=== PATIENT | male | born 1990 | race Caucasian/White ===

== ENCOUNTER 2016-11-23 13:24 | Emergency (ER) | payer OTHER ==
[~2016-11-23] VITALS: Ht 170.2 cm; Wt 74.8 kg
[~2016-11-23 13:24] MED LIST: ADDERALL XR 3030 MG PO; ADDERALL XR10 MG PO; ADDERALL XR20 MG PO; ADDERALL XR30 MG PO; ALBUTEROL 3 ML3 ML INH; ALBUTEROL SULFAT3 M1 INH; ALBUTEROL0.09 MG/A1 INH; ATIVAN0.5 M1 PO; ATIVAN1 M1 PO; AUGMENTIN 875875 MG PO; BIAXIN FILMTAB500 MG PO; COUGH100 MG/5 M PO; DULERA1 AR1 INH; DUONEB 3 MG/3 ML3 ML INH/SOL; EXCEDRIN BACK &1 TAB PO; HYDROXYZINE PAM50 MG PO; IBU800 MG PO; PREDNISONE 10MG10 M1 PO; PREDNISONE 20MG20 MG PO; PREDNISONE10 MG PO; PREDNISONE20 M1 PO; PROAIR HFA0.09 MG/Ac INH; PROAIR HFA8.5 GM INH; SINGULAIR10 MG PO; SYMBICORT 160/41 PUF INH; TESSALON PERLE100 M1 PO; VENTOLIN HFA18 GM INH; XANAX 0.25MG0.25 MG PO; XANAX 0.5MG TA0.5 MG PO; ZITHROMAX250 M2 PO
--- NOTE | 2016-11-23 14:20 | ED GENERAL ADULT ---
History of Present Illness General Chief Complaint: Wheezing/Asthma Stated Complaint: A?STHMA ATTACK Source: patient Exam Limitations: no limitations Vital Signs & Intake/Output Vital Signs & Intake/Output Vital Signs Date Time Temp Pulse Resp B/P Pulse O2 O2 Flow FiO2 Ox Delivery Rate 11/23 1456 99.0 80 20 118/64 96 Room Air 11/23 1449 98 11/23 1335 97.4 100 18 156/88 98 Room Air Allergies Coded Allergies: NO KNOWN ALLERGIES (03/05/13) Triage Note: 26 YEAR OLD MALE COMPLAINS OF SOB THAT HAS BEEN INCREASING SINCE YESTERDAY, WHEEZING NOTED. PT PALE , STATES THAT HE WAS ON PREDNISONE AND FINISHED 3 DAYS AGO. HAS HISTORY OF ASTHMA AND PNA. ALSO STATES THAT HE HAS ANXIETY AND THAT HIS PMD STOPPED TAKING HIS INSURANCE AND HE HAS NOT HAD ONE SINCE LAST PM Triage Nurses Notes Reviewed? yes Onset: Gradual Duration: worse persistent since (2) Timing: recent history Injury Environment: home Severity: moderate Severity Numbers: 6 No Modifying Factors: none HPI: Patient is a 26-year-old male with history of asthma, pneumonia, depression presenting to the emergency department chief complaining of shortness of breath worsening over the past 2 days. Also reporting wheezing. He was seen and evaluated at a walk-in clinic about a week ago and put on prednisone for the wheezing. He reports it helped but then it came back. He does have an albuterol inhaler that he takes as needed. He reports that this almost out. Denies any chest pain or palpitations. He also reports that he feels anxious. He reports that his primary care physician stopped taking his health insurance and he's been office psych medications for the past couple weeks. Denies any suicidal or homicidal ideation. No racing thoughts. He just reports that he feels anxious. He had some leftover Ativan which she's been using to hold himself over which helped slightly. Denies any nausea or vomiting fevers or chills no abdominal pain. No recent antibiotic use. (KHOA SHERMAN,APRIL) Reconcile Medications Albuterol Sulfate (Proair Hfa) 90 MCG HFA.AER.AD 2 PUF INH Q4-6 PRN PRN sob Dextroamphetamine/Amphetamine (Adderall XR 30 MG Capsule) 30 MG CAP.ER.24H 2 CAP PO DAILY ADHD (Reported) Dextroamphetamine/Amphetamine (Adderall 30 MG Tablet) 30 MG TABLET 1 TAB PO BID adhd Dextroamphetamine/Amphetamine (Adderall XR 30 MG Capsule) 30 MG CAP.ER.24H 1 CAP PO BID ADHD Fluticasone-Salmeterol (Advair 100-50 Diskus) 100 MCG-50 MCG/DOSE BLST.W.DEV 1 PUF INH BID asthma Lorazepam (Ativan) 0.5 MG TABLET 1 TAB PO BIDP PRN anxiety Paroxetine HCl (Paxil) 10 MG TABLET 1 TAB PO DAILY depression (JAVED BENJAMIN DO) Past History Travel History Traveled to [place] past 21 day No Medical History Any Pertinent Medical History? see below for history Neurological: ADHD EENT: NONE Cardiovascular: NONE Respiratory: asthma, pneumonia Gastrointestinal: NONE Hepatic: NONE Renal: NONE Musculoskeletal: NONE Psychiatric: anxiety Endocrine: NONE Blood Disorders: NONE Cancer(s): NONE PATIENT ADMITTING CLERK/Reproductive: NONE History of MRSA: No History of VRE: No History of CDIFF: No Surgical History Surgical History: N Psychosocial History Who do you live with Family Services at Home None What is your primary language Israeli Tobacco Use: Never used ETOH Use: denies use Illicit Drug Use: denies illicit drug use Family History Family History, If Any: FATHER Anxiety disorder FH: heart disease MOTHER FH: ADHD (attention deficit hyperactivity disorder) MATERNAL GRANDMOTHER Diabetes mellitus FH: asthma MATERNAL GRANDFATHER FH: hepatic cirrhosis PATERNAL GRANDFATHER FH: myocardial infarction Hx Contributory? No (APRIL JO) Review of Systems Review of Systems Constitutional: Reports: no symptoms. Comments Review of systems: See HPI, All other systems negative. Constitutional, no chills fever or weight loss HEENT: No visual changes no sore throat no congestion Cardiovascular: No chest pain ,palpitation , orthopnea or ankle swelling Skin, no jaundice no rashes Respiratory: No cough sputum or hemoptysis GI: No nausea no vomiting Muscle skeletal: no back pain, no neck pain, Neurologic: No numbness no confusion Psych: positive Stress, anxiety Heme/endocrine: No bruising no bleeding no polyuria or polydipsia Immunology: No splenectomy or history of AIDS (APRIL JO) Physical Exam Physical Exam General Appearance: well developed/nourished, no apparent distress, alert, awake , comfortable Comments: Well-developed well-nourished person in no acute distress HEENT: Pupils equally round and reactive to light and accommodation. Nose is atraumatic. External auditory canal and Tympanic membranes clear. Pharynx normal. No swelling or edema. Neck: Supple, no lymphadenopathy, normal range of motion without pain or tenderness Back: Nontender Cardiovascular: Regular rate and rhythms no murmurs rubs or gallops, normal JVP Respiratory: Chest nontender. No respiratory distress.diffuse wheezing to auscultation bilaterally Extremity: No edema. Neuro: Alert oriented x3 Skin: No appreciable rash on exposed skin, skin is warm and dry. Psych: Appears mildly anxious, cooperative Core Measures ACS in differential dx? No CVA/TIA Diagnosis: No Severe Sepsis Present: No Septic Shock Present: No (KHOA SHERMAN,APRIL) Progress Differential Diagnoses I considered the following diagnoses in my evaluation of the patient: COPD, asthma exacerbation, bronchitis, pneumonia Plan of Care: Orders Procedure Date/time Status XRY-CHEST XRAY, PA AND LATERAL 11/23 1335 Active Current Medications Sig/Shelia Start time Last Medication Dose Stop Time Status Admin Albuterol Sulfate 3 ML ONCE ONE 11/23 1445 AC (Proventil) 11/23 1446 Ipratropium [place] 2.5 ML ONCE ONE 11/23 1445 AC (Atrovent) 11/23 1446 Diagnostic Imaging: Viewed by Me: Radiology Read. Discussed w/RAD: Radiology Read. Radiology Impression: PATIENT: MANOLO ADORNO JR PRESENT AGE: 26 PATIENT ACCOUNT NO: [id number] : 90 LOCATION: [facility] ORDERING PHYSICIAN: JAVED BENJAMIN DO SERVICE DATE: 11/23/16 EXAM TYPE: RAD - XRY-CHEST XRAY, PA AND LATERAL EXAMINATION: XR CHEST CLINICAL INFORMATION: 26-year-old man with shortness of breath. COMPARISON: 01/28/2016 chest radiograph TECHNIQUE: 2 views of the chest were obtained. FINDINGS: The lungs are well expanded and clear, without evidence of focal airspace consolidation or pneumothorax. Cardiomediastinal contours are normal. There are no pleural effusions. IMPRESSION: No radiographic evidence of an acute cardiopulmonary process. Initial ED EKG: none Comments: Patient feels much improved after DuoNeb treatment. Lungs only have minimal wheezing after DuoNeb treatment. Patient will be treated for asthma exacerbation. He was given refill medications to last until his follow-up appointment. Patient nontoxic. Vital stable. (APRIL JO) Departure Departure Time of Disposition: 1450 Disposition: HOME OR SELF CARE Condition: Stable Clinical Impression Primary Impression: Asthma exacerbation Secondary Impressions: Anxiety Referrals: PATIENT HAS NO PRIMARY CARE DR (PCP/Family) Additional Instructions: Follow-up with a primary care physician as scheduled for December 07. Take medications as prescribed. Return for worsening symptoms or concerns. Departure Forms: Customer Survey General Discharge Information (APRIL JO) Departure Prescriptions: Current Visit Scripts Albuterol Sulfate (Proair Hfa) 2 PUF INH Q4-6 PRN PRN sob #1 INHAL Fluticasone-Salmeterol (Advair 100-50 Diskus) 1 PUF INH BID #1 INHAL Dextroamphetamine/Amphetamine (Adderall 30 MG Tablet) 1 TAB PO BID #30 TAB Lorazepam (Ativan) 1 TAB PO BIDP PRN anxiety #12 TAB Paroxetine HCl (Paxil) 1 TAB PO DAILY #15 TAB Dextroamphetamine/Amphetamine (Adderall XR 30 MG Capsule) 1 CAP PO BID #30 CAP PA/TAR WORKER Co-Sign Statement Statement: ED Attending supervision documentation- [] I saw and evaluated the patient. I have also reviewed all the pertinent lab results and diagnostic results. I agree with the findings and the plan of care as documented in the PA's/TAR WORKER's documentation. [x] I have reviewed the ED Record and agree with the PA's/TAR WORKER's documentation. [] Additions or exceptions (if any) to the PAs/TAR WORKER's note and plan are summarized below: [] (JAVED BENJAMIN DO) Critical Care Note Critical Care Note Critical Care Time: non-applicable (APRIL JO)
--- NOTE | 2016-11-23 14:49 | RADIOLOGY REPORT ---
EXAMINATION: XR CHEST CLINICAL INFORMATION: 26-year-old man with shortness of breath. COMPARISON: 01/28/2016 chest radiograph TECHNIQUE: 2 views of the chest were obtained. FINDINGS: The lungs are well expanded and clear, without evidence of focal airspace consolidation or pneumothorax. Cardiomediastinal contours are normal. There are no pleural effusions. IMPRESSION: No radiographic evidence of an acute cardiopulmonary process.
[2016-11-23] MEDS ORDERED: ATIVAN0.5 M1 PO (14:55)
[2016-11-23] MEDS ORDERED: PROAIR HFA8.5 GM INH (14:55)
[2016-11-23] MEDS ORDERED: PAXIL10 M1 PO (14:55)
[2016-11-23] MEDS ORDERED: ADVAIR 100-501 EACH INH (14:55)
[2016-11-23] MEDS ORDERED: ADDERALL 30 MG30 MG PO (14:55)
[2016-11-23 14:56] VITALS: BP 118/64
[2016-11-23] MEDS ORDERED: ADDERALL XR 3030 MG PO (16:00)
== END 2016-11-23 15:16 ==
LOC: ERH 13:24
DX: J45.901 Unspecified asthma with (acute) exacerbation (principal); F41.9 Anxiety disorder, unspecified
CPT/HCPCS: 1263

== ENCOUNTER 2017-01-14 10:39 | Emergency (ER) | payer OTHER ==
[~2017-01-14 10:39] MED LIST changes: +ADDERALL 30 MG30 MG PO; +ADVAIR 100-501 EACH INH; +PAXIL10 M1 PO
[2017-01-14 11:10] VITALS: BP 147/74
--- NOTE | 2017-01-14 11:12 | ED PSYCHIATRIC COMPLAINT ---
History of Present Illness General Chief Complaint: General Adult Stated Complaint: MEDICATION REFILL Source: patient, old records Exam Limitations: no limitations Vital Signs & Intake/Output Vital Signs & Intake/Output Vital Signs Date Time Temp Pulse Resp B/P Pulse O2 O2 Flow FiO2 Ox Delivery Rate 01/14 1113 95 01/14 1110 97.2 103 18 147/74 96 Room Air Allergies Coded Allergies: NO KNOWN ALLERGIES (03/05/13) Reconcile Medications Albuterol Sulfate (Proair Hfa) 90 MCG HFA.AER.AD 2 PUF INH Q4-6 PRN PRN sob Dextroamphetamine/Amphetamine (Adderall XR 30 MG Capsule) 30 MG CAP.ER.24H 2 CAP PO DAILY ADHD (Reported) Dextroamphetamine/Amphetamine (Adderall XR 30 MG Capsule) 30 MG CAP.ER.24H 2 CAP PO QAM adhd Dextroamphetamine/Amphetamine (Adderall 30 MG Tablet) 30 MG TABLET 1 TAB PO BID adhd Dextroamphetamine/Amphetamine (Adderall XR 30 MG Capsule) 30 MG CAP.ER.24H 1 CAP PO BID ADHD Fluticasone-Salmeterol (Advair 100-50 Diskus) 100 MCG-50 MCG/DOSE BLST.W.DEV 1 PUF INH BID asthma Lorazepam (Ativan) 0.5 MG TABLET 1 TAB PO BIDP PRN anxiety Lorazepam (Ativan) 0.5 MG TABLET 1 TAB PO BIDP PRN anxiety Paroxetine HCl (Paxil) 10 MG TABLET 1 TAB PO DAILY anxiety Paroxetine HCl (Paxil) 10 MG TABLET 1 TAB PO DAILY depression Triage Note: STATES, "I CAN'T FUNCTION". RAN OUT OF ADARAL. PAXIL AND ATIVAN 1 MONTH AGO. DENIES SI OR HI. Triage Nurses Notes Reviewed? yes Onset: Gradual Duration: week(s): (4), constant, getting worse Timing: recent history Severity: moderate Severity Numbers: 6 Associated Symptoms: anxiety HPI: 26-year-old male with history of ADHD, anxiety presents for medication refill. He states that he medications approximately 4 weeks ago, and cannot follow up with his psychiatrist that she does not take his insurance any longer. He presents requesting refill of his Paxil Adderall and Ativan. Patient denies suicidal or homicidal ideation, no insomnia ever he complains of racing thoughts and difficulty concentrating. There are no modifying factors or associated symptoms. Discussed the patient options of speaking with crisis which she declined stating that he feels as though he just needs his medications help him function. He denies alcohol or drug use (REID BERNAL) Past History Travel History Traveled to [place] past 21 day No Medical History Any Pertinent Medical History? see below for history Neurological: ADHD EENT: NONE Cardiovascular: NONE Respiratory: asthma, pneumonia Gastrointestinal: NONE Hepatic: NONE Renal: NONE Musculoskeletal: NONE Psychiatric: anxiety, ADHD Endocrine: NONE Blood Disorders: NONE Cancer(s): NONE IMPLEMENTATION MANAGER/Reproductive: NONE History of MRSA: No History of VRE: No History of CDIFF: No Surgical History Surgical History: N Psychosocial History Who do you live with Family Services at Home None What is your primary language Setswana Tobacco Use: Current Daily Use Daily Tobacco Use Amount/Type: => 5 Cigarettes daily ETOH Use: denies use Family History Family History, If Any: FATHER Anxiety disorder FH: heart disease MOTHER FH: ADHD (attention deficit hyperactivity disorder) MATERNAL GRANDMOTHER Diabetes mellitus FH: asthma MATERNAL GRANDFATHER FH: hepatic cirrhosis PATERNAL GRANDFATHER FH: myocardial infarction Hx Contributory? No (REID BERNAL) Review of Systems Review of Systems Constitutional: Reports: see HPI. All Other Systems: Reviewed and Negative Comments Review of systems: See HPI, All other systems negative. Constitutional, no chills no fever, no malaise HEENT: no sore throat no congestion, no ear pain Cardiovascular: No chest pain , no palpitation Skin, no rashes, no change in skin Respiratory: No dyspnea no cough GI: No nausea no vomiting, no diarrhea, : No dysuria Muscle skeletal: no back pain, no neck pain, Neurologic: No numbness no headache Psych: stress anxiety Heme/endocrine: No bruising no bleeding Immunology: No lymphadenopathy (REID BERNAL) Physical Exam Physical Exam General Appearance: well developed/nourished, no apparent distress, alert, awake Neurological/Psychiatric: no motor/sensory deficits, awake, alert, anxious, flat hammerer II-XII nml as tested SAD PERSONS Done? patient not suicidal (REID BERNAL) Progress Differential Diagnosis: anxiety depression medication refill Plan of Care: ct manager functional reviewed, last prescriptons filled were early nov 2016. The patient denies SI or HI discussed with the option of talking with crisis today which she declines. I had an extensive conversation regarding need for close follow up with their primary care physician this week as well as return precautions. I answered all of their questions, they feel comfortable with the plan and follow- up care. I discussed the medications that they will receive with the patient. I gave them signs and symptoms that could indicate an adverse reaction. I have advised them to limit their activities until they can see how they respond to the medication. (REID BERNAL) Departure Departure Time of Disposition: 1115 Disposition: HOME OR SELF CARE Condition: Stable Clinical Impression Primary Impression: Medication refill Referrals: SOFIE PIERCE,KATE TORREZ MD,EMIGDIO Flores PATIENT HAS NO PRIMARY CARE DR (PCP/Family) KIRSTEN PIERCE,HEAVEN Additional Instructions: take your medications as prescribed- these were sent to [facility] in [place]. follow up with primary care physician dr amaro next week as well as pyschiatrist dr brown or dr torrez. return at anytime sooner with any concerns Departure Forms: Customer Survey General Discharge Information Prescriptions: Current Visit Scripts Dextroamphetamine/Amphetamine (Adderall XR 30 MG Capsule) 2 CAP PO QAM #30 CAP Paroxetine HCl (Paxil) 1 TAB PO DAILY #30 TAB Lorazepam (Ativan) 1 TAB PO BIDP PRN anxiety #10 TAB (REID BERNAL) PA/VEST FINISHER Co-Sign Statement Statement: ED Attending supervision documentation- [] I saw and evaluated the patient. I have also reviewed all the pertinent lab results and diagnostic results. I agree with the findings and the plan of care as documented in the PA's/VEST FINISHER's documentation. [X] I have reviewed the ED Record and agree with the PA's/VEST FINISHER's documentation. [] Additions or exceptions (if any) to the PAs/VEST FINISHER's note and plan are summarized below: [] (CORNELIUS PIERCE,JENNIFER Wise)
[2017-01-14] MEDS ORDERED: ADDERALL XR 3030 MG PO (11:19)
[2017-01-14] MEDS ORDERED: PAXIL10 M1 PO (11:19)
[2017-01-14] MEDS ORDERED: ATIVAN0.5 M1 PO (11:19)
== END 2017-01-14 11:26 ==
LOC: ERH 10:39
DX: Z76.0 Encounter for issue of repeat prescription (principal)
CPT/HCPCS: 99281

== ENCOUNTER 2017-01-23 19:16 | Inpatient (IN) | payer OTHER ==
[~2017-01-23] VITALS: Ht 167.6 cm; Wt 77.1 kg
--- NOTE | 2017-01-23 20:15 | ED PSYCHIATRIC COMPLAINT ---
History of Present Illness General Chief Complaint: Psychiatric Related Complaint Stated Complaint: "I FEEL LIKE IM HAVING A NERVOUS BREAKDOWN" Source: patient, old records Exam Limitations: no limitations Vital Signs & Intake/Output Vital Signs & Intake/Output Vital Signs Date Time Temp Pulse Resp B/P Pulse O2 O2 Flow FiO2 Ox Delivery Rate 01/24 1036 96 01/24 1017 97.2 97 20 147/68 97 Room Air Room Air 01/24 0814 97.9 97 18 141/82 97 Room Air 01/24 0621 96.0 71 18 135/62 95 Room Air 01/24 0240 96.8 67 20 141/73 98 Room Air 01/23 2349 96.6 74 18 135/85 96 Room Air 01/23 1942 97.5 93 20 165/89 98 ED Intake and Output 01/24 0000 01/23 1200 Intake Total Output Total Balance Patient 170 lb Weight Allergies Coded Allergies: NO KNOWN ALLERGIES (03/05/13) Reconcile Medications Albuterol Sulfate (Proair Hfa) 90 MCG HFA.AER.AD 2 PUF INH Q4-6 PRN PRN sob Dextroamphetamine/Amphetamine (Adderall XR 30 MG Capsule) 30 MG CAP.ER.24H 2 CAP PO DAILY ADHD (Reported) Dextroamphetamine/Amphetamine (Adderall XR 30 MG Capsule) 30 MG CAP.ER.24H 2 CAP PO QAM adhd Dextroamphetamine/Amphetamine (Adderall 30 MG Tablet) 30 MG TABLET 1 TAB PO BID adhd Dextroamphetamine/Amphetamine (Adderall XR 30 MG Capsule) 30 MG CAP.ER.24H 1 CAP PO BID ADHD Fluticasone-Salmeterol (Advair 100-50 Diskus) 100 MCG-50 MCG/DOSE BLST.W.DEV 1 PUF INH BID asthma Lorazepam (Ativan) 0.5 MG TABLET 1 TAB PO BIDP PRN anxiety Lorazepam (Ativan) 0.5 MG TABLET 1 TAB PO BIDP PRN anxiety Paroxetine HCl (Paxil) 10 MG TABLET 1 TAB PO DAILY anxiety Paroxetine HCl (Paxil) 10 MG TABLET 1 TAB PO DAILY depression Triage Note: PER PT SEEN 2 WEEKS AGO FOR REFILLS ON ADDERALL, XANAX ASKED IF I WANTED TO TALK TO SOMEONE. DENIES SIHI NOW I WANT TO SEE A PSYCHAIRTRIST, FEEL REALLY DOWN. Triage Nurses Notes Reviewed? yes HPI: Patient presents with increased anxiety and feeling of hopelessness. Patient states that he is not suicidal however does not want to be alive anymore. Patient has 1 week left of his medications and then will run out. He has been unable to find a psychiatrist yet. Patient did have his meds refilled in the ER last time. Patient also heard from his employer today and that he might be going to [facility]. Patient denies any homicidal ideations. Patient states that he is just at the end of his rope and does not know when he is going to do. (CORNELIUS PIERCE,JENNIFER Wise) Past History Travel History Traveled to [place] past 21 day No Medical History Any Pertinent Medical History? see below for history Neurological: ADHD EENT: NONE Cardiovascular: NONE Respiratory: asthma, pneumonia Gastrointestinal: NONE Hepatic: NONE Renal: NONE Musculoskeletal: NONE Psychiatric: anxiety, ADHD Endocrine: NONE Blood Disorders: NONE Cancer(s): NONE MACHINE LOAD CLERK/Reproductive: NONE History of MRSA: No History of VRE: No History of CDIFF: No Surgical History Surgical History: non-contributory, N Psychosocial History Who do you live with Family Services at Home None What is your primary language Sinhala Tobacco Use: Current Daily Use Daily Tobacco Use Amount/Type: => 5 Cigarettes daily ETOH Use: occasional use Illicit Drug Use: denies illicit drug use Family History Family History, If Any: FATHER Anxiety disorder FH: heart disease MOTHER FH: ADHD (attention deficit hyperactivity disorder) MATERNAL GRANDMOTHER Diabetes mellitus FH: asthma MATERNAL GRANDFATHER FH: hepatic cirrhosis PATERNAL GRANDFATHER FH: myocardial infarction Hx Contributory? No (CORNELIUS PIERCE,JENNIFER Wise) Review of Systems Review of Systems Constitutional: Reports: no symptoms. EENTM: Reports: no symptoms. Respiratory: Reports: no symptoms. Cardiovascular: Reports: no symptoms. GI: Reports: no symptoms. Genitourinary: Reports: no symptoms. Musculoskeletal: Reports: no symptoms. Skin: Reports: no symptoms. Neurological/Psychological: Reports: see HPI, anxiety, depressed. Hematologic/Endocrine: Reports: no symptoms. Immunologic/Allergic: Reports: no symptoms. All Other Systems: Reviewed and Negative (CORNELIUS PIERCE,JENNIFER Wise) Physical Exam Physical Exam General Appearance: well developed/nourished, alert, awake, anxious, moderate distress Head: atraumatic, normal appearance Eyes: Bilateral: PERRL, EOMI. Ears, Nose, Throat: normal pharynx, normal ENT inspection, hearing grossly normal Neck: normal inspection, supple, full range of motion Respiratory: normal breath sounds, chest non-tender, no respiratory distress, lungs clear Cardiovascular: regular rate/rhythm, normal peripheral pulses Gastrointestinal: normal bowel sounds, soft, non-tender, no organomegaly Extremities: normal range of motion Neurological/Psychiatric: no motor/sensory deficits, awake, alert, anxious, oriented x 3 Appearance/Memory/Insight: appropriate appearance, appropriate insight Behavoir/Eye Contact/Speech: cooperative, normal speech, good eye contact Thoughts/Hallucinations: normal thought pattern, no apparent hallucination Skin: intact, normal color, warm/dry SAD PERSONS Done? CRISIS CONSULT OBTAINED (CORNELIUS PIERCE,JENNIFER Wise) Progress Differential Diagnosis: drug intoxication, drug overdose, drug withdrawal, electrolyte abnormality Plan of Care: Orders Procedure Date/time Status Regular Diet 01/24 L Active Regular Diet 01/24 B Complete Lab Add-on Test 01/24 1052 Active Patient Data - inpatient psych 01/24 921 Active Admit to inpatient psych 01/24 921 Active Admit to inpatient psych 01/24 0841 Active Intake & Output 01/24 0117 Active Vital Signs 01/24 UNK Active Nursing Misc 01/24 UNK Active Alternative Nursing Therapy 01/24 UNK Active Activity/Ambulation 01/24 UNK Active TSH REFLEX 01/23 214 Active ETHANOL 01/23 2050 Active COMPREHENSIVE METABOLIC PANEL 01/23 2050 Active CBC WITHOUT DIFFERENTIAL 01/23 2050 Complete URINE DRUGS OF ABUSE 01/23 2015 Complete ED CRISIS PSYCH CONSULT 01/23 2015 Active Current Medications Sig/Shelia Start time Last Medication Dose Stop Time Status Admin Bupropion HCl 300 MG DAILY 01/24 1055 AC (Wellbutrin XL) Paroxetine HCl 10 MG DAILY 01/24 1055 AC (Paxil) Budesonide/ 2 PUF BID 01/24 1053 AC Formoterol Fumarate (SYMBICORT) Acetaminophen 650 MG Q6P PRN 01/24 0930 AC (Tylenol) Al Hydroxide/Mg 30 ML Q4-6 PRN PRN 01/24 09 AC Hydroxide (Maalox Plus) Gabapentin 300 MG Q6P PRN 01/24 0930 AC (Neurontin) Magnesium Hydroxide 30 ML AT BEDTIME NEED.. 01/24 09 AC (Milk Of Magnesia) Trazodone HCl 50 MG AT BEDTIME PRN 01/24 0930 AC (Desyrel) Laboratory Tests 01/23/179: Anion Gap 12, Estimated GFR > 60, BUN/Creatinine Ratio 12.2, Glucose 88, Calcium 9.8, Total Bilirubin 0.6, AST 20, ALT 59, Alkaline Phosphatase 45, Total Protein 6.7, Albumin 4.2, Globulin 2.5, Albumin/Globulin Ratio 1.7, TSH &T3 &Free T4 Intrp Pending, CBC w Diff NO MAN DIFF REQ, RBC 4.94, MCV 85.1, MCH 29.0, RDW 13.4, MPV 8.1, Gran % 57.7, Lymphocytes % 33.6, Monocytes % 5.3, Eosinophils % 2.7, Basophils % 0.7, Absolute Granulocytes 4.9, Absolute Lymphocytes 2.9, Absolute Monocytes 0.4, Absolute Eosinophils 0.2, Absolute Basophils 0.1, PUBS MCHC 34.1, Serum Alcohol < 10.0 01/23/177: Urine Opiates Screen < 100.00, Methadone Screen < 40, Barbiturate Screen < 60, Ur Phencyclidine Scrn < 6.00, Amphetamines Screen > 1450 H, U Benzodiazepines Scrn < 85, Urine Cocaine Screen < 50, Urine Cannabis Screen < 5.00 Hand-Off Endorsed To: MOUSTAPHA GAMBOA MD Endorsed Time: 0700 Pending: consult (CRISIS) (CORNELIUS PIERCE,JENNIFER Wise) Comments: To be hospitalized @ [facility] for management of major depression (MOUSTAPHA GAMBOA MD) Departure Departure Disposition: STILL A PATIENT Condition: Stable Clinical Impression Primary Impression: Depression Referrals: PATIENT HAS NO PRIMARY CARE DR (PCP/Family) Departure Forms: Customer Survey General Discharge Information (JENNIFER SHIELDS MD) Psych Admission Note Psychiatric Admission: I have seen and evaluated MANOLO ADORNO JR. I have also reviewed all the pertinent lab results and diagnostic results. MANOLO ADORNO JR will be admitted to our inpatient Psychiatric unit for treatment and care. (MOUSTAPHA GAMBOA MD)
--- NOTE | 2017-01-23 21:47 | ED PSY CRISIS COLLATERAL NOTE ---
Collateral Note Collateral Note Family/Inform/Janine Contacts: Spoke to patient's mother, Diana Yang . Diana states "I am concerned that Peter is not doing good. He has so many things going on." Diana states the patient has a history of heroin abuse. She reports the patient has been dealing with anxiety since he was a child. She states that the patient was discharged from [facility] for missing an appointment and stopped taking his medication in August,. In October,, she reports he decompensated, relapsed and was arrested. She reports he was charged with "serious charges" including robbery and that he is very fearful of the possible outcome being correction. She reports the patient has been anxious, depressed and helpless since the arrest and "always full of doom and gloom." However, she reports the patient has been improving recently since he started taking medication again. She reports the patient intended to make an appointment with [facility] for an intake. She reports the patient is currently residing [facility] ([facility]) in [place], [place] pending the disposition of his case. She reports she took the patient on a pass from [facility] today to see his family law attorney. She reports she became concerned for the patient after the meeting with the director of engineering. She reports that the patient became despondent and stated "I do not want to be here. I would be better off ." She reports she brought him to the [facility] ED because she was concerned for his safety and well being. This note prepared by Leticia Roberts, RAKE OPERATOR Binder Roller, and signed off by Lilia Olivas LCSW
[2017-01-23 22:05] LABS: ABSOLUTE BASOPHIL COUNT 0.1 /CUMM (0.0-0.2); ABSOLUTE EOSINOPHIL COUNT 0.2 /CUMM (0.0-0.7); ABSOLUTE GRANULOCYTE CT 4.9 /CUMM (1.4-6.5); ABSOLUTE LYMPH COUNT 2.9 /CUMM (1.2-3.4); ABSOLUTE MONOCYTE COUNT 0.4 /CUMM (0.10-0.60); BASOPHIL % 0.7 % (0.0-2.0); EOSINOPHIL % 2.7 % (0-5); GRANULOCYTE % 57.7 % (42.2-75.2); HEMATOCRIT 42.1 % (42-52); MEAN CORPUSCULAR HGB CONC 34.1 G/DL (33.0-37.0); MEAN CORPUSCULAR VOLUME 85.1 FL (80.0-94.0); MEAN PLATELET VOLUME 8.1 FL (7.4-10.4); PLATELET COUNT 262 /CUMM (130-400); RBC DISTRIBUTION WIDTH 13.4 % (11.5-14.5); RED BLOOD CELL CT 4.94 /CUMM (4.70-6.10); WHITE BLOOD CELL COUNT 8.5 /CUMM (4.8-10.8)
--- NOTE | 2017-01-24 08:09 | ED PSYCH CRISIS CONSULTATION ---
Crisis Consult Basic Assessment Date of Consult: 01/24/17 Responsible Person/Accompanied By: Mom brought pt to the ED Insurance Authorization: Insurance #1: Insurance name: [employer] Phone number: Policy number: [id number] Group number: Authorization number: ED Provider: Patient's ED Provider: CORNELIUS PIERCE,JENNIFER Wise Primary Care Physician: Patient's PCP: PATIENT HAS NO PRIMARY CARE DR PCP's Phone Number: Current Psychiatrist: none Chief Complaint: Psychiatric Related Complaint Patient's Quote: "I just wish I was ." Present Illness: Pt is a 26yo male who was brought to the ED by his mother Harper Yang due to concern that he may hurt himself due to the severity of his depression. Crisis spoke to Mom last night who expressed the following: "Spoke to patient's mother, Diana Yang . Diana states "I am concerned that Peter is not doing good. He has so many things going on." Diana states the patient has a history of heroin abuse. She reports the patient has been dealing with anxiety since he was a child. She states that the patient was discharged from [facility] for missing an appointment and stopped taking his medication in August,. In October,, she reports he decompensated, relapsed and was arrested. She reports he was charged with "serious charges" including robbery and that he is very fearful of the possible outcome being senior care. She reports the patient has been anxious, depressed and helpless since the arrest and "always full of doom and gloom." However, she reports the patient has been improving recently since he started taking medication again. She reports the patient intended to make an appointment with [facility] for an intake. She reports the patient is currently residing at the [facility] ([facility]) in [place], [place] pending the disposition of his case. She reports she took the patient on a pass from [facility] today to see his patent attorney. She reports she became concerned for the patient after the meeting with the vet assistant. She reports that the patient became despondent and stated "I do not want to be here. I would be better off ." She reports she brought him to the [facility] ED because she was concerned for his safety and well being.(This note prepared by Leticia Roberts, IT SECURITY SPECIALIST Delivery Table Operator, and signed off by Lilia Olivas LCSW 01/23/17)" Upon crisis eval pt confirms the above and continues to express feeling of hopelessness and helplessness and a wish to be . Pt denies any plan to end his life. Pt appears depressed and anxious. Pt reports that in addition to the above mentioned stressors he has also been depressed because over the past year 2 close friend of his have dies and his girlfriend of 10 years broke up with him. 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 Pt is unsure when his exact court carlene is but thinks it is around February 09. Pt reports that he has been having racing thoughts, poor impulse control and feeling anxious and depressed. He reports normal sleep and appetite, but identifies that he has been having poor motivation with difficulty getting out of bed to do anything. Pt endorses current passive SI but denies any current HI/SH or psychosis or any hx of any. Pt denies any hx of inpt tx. Pt reports that he was in out pt tx with Dr. Larson but for Anxiety, Depression , and ADHD and was prescribed Adderall, Paxil , and ativan. Pt explains that he missed some appointments, so he was discharged, and when he tried to return, he looked her up on her web page and saw that she no longer accepts [employer]. Pt reports that he has been trying to get a psychiatrist since then, but has not been able too. He explains that when he goes off his adderall he get too impulsive and that since he has not been in treatment he "ended up hanging out with the wrong people and got arrested because I was too impulsive off my adderall." Pt denies abusing his adderall and denies using any other substances or alcohol. Pt was seen in ED on 12/17/16 and was discharged with the following scripts: Dextroamphetamine/Amphetamine (Adderall XR 30 MG Capsule) 2 CAP PO QAM #30 CAP, Paroxetine HCl (Paxil) 1 TAB PO DAILY #30 TAB, Lorazepam ( Ativan) 1 TAB PO BIDP PRN anxiety #10 TAB . The ED provider documented that he reviewed pt's CLOTHING AND TEXTILES TEACHER and that he had scripts filled in early Nov. This clinician contacted Dr. Larson who informed that pt was discharged because he stopped coming for tx and she confirmed that she was prescribing him Adderall for ADHD and Paxil for anxiety. She reports that she last saw him about 6 months ago. This clinician also spoke with Garland katherine at pt's current residence [facility] who reported that pt has 10 adderall pills left in his bottle. Pt would like to be admitted to [facility] to treat his depression and passive SI. It was explained to pt that he will be evaluated for medication and recommendations will be made and there is no guarantee that the adderall will be continued. Pt confirmed an understanding of this but continues to express that importance of how much his functioning improves when he takes adderall. Case reviewed with Dr. De La Vega of Psychiatry and pt will be admitted to [facility] voluntarily. Pt in agreement and requested that his anti air warfare operations officer be notified. This clinician spoke to Pt's anti air warfare operations officer Abelino Roman to inform him of pt's admission and also faxed him a written confirmation (see original in paper chart). Patient's Address: [address] [place] [address] Other Phone Number: Who Do You Live With? Other (see notes) ([facility]) Family/Informants Interviewed: Mother Allergies - Coded Allergies: NO KNOWN ALLERGIES (03/05/13) Current Medications - Scheduled Medications Dextroamphetamine/Amphetamine (Adderall XR 30 MG Capsule) 30 MG CAP.ER.24H 2 CAP PO DAILY ADHD (Reported) Entered as Reported by KIRTI PARRISH on 01/28/16 1347 Dextroamphetamine/Amphetamine (Adderall XR 30 MG Capsule) 30 MG CAP.ER.24H 2 CAP PO QAM adhd #30 CAP Prescribed by REID BERNAL on 01/14/17 Dextroamphetamine/Amphetamine (Adderall 30 MG Tablet) 30 MG TABLET 1 TAB PO BID adhd #30 TAB Prescribed by APRIL JO on 11/23/16 Dextroamphetamine/Amphetamine (Adderall XR 30 MG Capsule) 30 MG CAP.ER.24H 1 CAP PO BID ADHD #30 CAP Prescribed by APRIL JO on 11/23/16 Fluticasone-Salmeterol (Advair 100-50 Diskus) 100 MCG-50 MCG/DOSE BLST.W.DEV 1 PUF INH BID asthma #1 INHAL Prescribed by APRIL JO on 11/23/16 Paroxetine HCl (Paxil) 10 MG TABLET 1 TAB PO DAILY anxiety #30 TAB Prescribed by REID BERNAL on 01/14/17 Paroxetine HCl (Paxil) 10 MG TABLET 1 TAB PO DAILY depression #15 TAB Prescribed by APRIL JO on 11/23/16 Scheduled PRN Medications Albuterol Sulfate (Proair Hfa) 90 MCG HFA.AER.AD 2 PUF INH Q4-6 PRN PRN sob #1 INHAL Prescribed by APRIL JO on 11/23/16 Lorazepam (Ativan) 0.5 MG TABLET 1 TAB PO BIDP PRN anxiety #10 TAB Prescribed by REID BERNAL on 01/14/17 Lorazepam (Ativan) 0.5 MG TABLET 1 TAB PO BIDP PRN anxiety #12 TAB Prescribed by APRIL JO on 11/23/16 Laboratory Results: Laboratory Tests 01/23/172148: Anion Gap 12, Estimated GFR > 60, BUN/Creatinine Ratio 12.2, Glucose 88, Calcium 9.8, Total Bilirubin 0.6, AST 20, ALT 59, Alkaline Phosphatase 45, Total Protein 6.7, Albumin 4.2, Globulin 2.5, Albumin/Globulin Ratio 1.7, TSH &T3 &Free T4 Intrp Pending, CBC w Diff NO MAN DIFF REQ, RBC 4.94, MCV 85.1, MCH 29.0, RDW 13.4, MPV 8.1, Gran % 57.7, Lymphocytes % 33.6, Monocytes % 5.3, Eosinophils % 2.7, Basophils % 0.7, Absolute Granulocytes 4.9, Absolute Lymphocytes 2.9, Absolute Monocytes 0.4, Absolute Eosinophils 0.2, Absolute Basophils 0.1, PUBS MCHC 34.1, Serum Alcohol < 10.0 01/23/172116: Urine Opiates Screen < 100.00, Methadone Screen < 40, Barbiturate Screen < 60, Ur Phencyclidine Scrn < 6.00, Amphetamines Screen > 1450 H, U Benzodiazepines Scrn < 85, Urine Cocaine Screen < 50, Urine Cannabis Screen < 5.00 Past History Past Medical History Neurological: ADHD EENT: NONE Cardiovascular: NONE Respiratory: asthma, pneumonia Gastrointestinal: NONE Hepatic: NONE Renal: NONE Musculoskeletal: NONE Psychiatric: anxiety, ADHD Endocrine: NONE Blood Disorders: NONE Cancer(s): NONE 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 Neo Davies [place] Reason for Treatment Depression, Anxiety, ADHD Dates of Treatment stopped going 6 months ago Response to Treatment unclear Diagnosis by History: Anxiety, Depression, ADHD Substance Use/Abuse History Drug Use/Abuse Substances Used/Abused No Substance Abuse Treatment Substance Abuse Treatment Past Substance Abuse TX No Inpatient Treatment No Outpatient Treatment No Current Mental Status Mental Status Orientation: Person, Place, Situation Affect: Anxious, Depressed, Hopeless, Sad Speech: Mumbled Neuro-vegetative: Anhedonia, Concentration Poor, Helpless, Loss of Interest Appearance Appearance- Dress/Hygiene: fairly groomed, good eye contact Behaviors Thought Process: WNL Thought Content: WNL Memory: WNL Insight: Fair SI/HI Risk Assessment Past Suicidal Ideation/Attempts No Current Suicidal Ideation/Att Yes Past Homicidal Ideation/Att: No Current Homicidal Ideation/Attempts No Degree of Intent: Thoughts/No Intent Risk Factors: high anxiety/distress, poor impulse control, male Lethality Ratin PTSD Checklist PTSD Done? 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
[2017-01-24 11:53] VITALS: BP 147/81
--- NOTE | 2017-01-24 11:56 | IP CRISIS DIAG ASSESS PSYCH ---
Diagnostic Assessment Basic Assessment Insurance Authorization: Insurance #1: Insurance name: [employer] Phone number: Policy number: [id number] Group number: Authorization number: [id number] Primary Care Physician: Patient's PCP: PATIENT HAS NO PRIMARY CARE DR PCP's Phone Number: Patient's Quote: "I just wish I was ." Present Illness: Pt is a 26yo male who was brought to the ED by his mother Harper Yang due to concern that he may hurt himself due to the severity of his depression. Crisis spoke to Mom last night who expressed the following: "Spoke to patient's mother, Diana Yang . Diana states "I am concerned that Peter is not doing good. He has so many things going on." Diana states the patient has a history of heroin abuse. She reports the patient has been dealing with anxiety since he was a child. She states that the patient was discharged from [facility] for missing an appointment and stopped taking his medication in August,. In October,, she reports he decompensated, relapsed and was arrested. She reports he was charged with "serious charges" including robbery and that he is very fearful of the possible outcome being care home. She reports the patient has been anxious, depressed and helpless since the arrest and "always full of doom and gloom." However, she reports the patient has been improving recently since he started taking medication again. She reports the patient intended to make an appointment with [facility] for an intake. She reports the patient is currently residing at the [facility] ([facility]) in [place], [place] pending the disposition of his case. She reports she took the patient on a pass from [facility] today to see his banking attorney. She reports she became concerned for the patient after the meeting with the associate sales. She reports that the patient became despondent and stated "I do not want to be here. I would be better off ." She reports she brought him to the [facility] ED because she was concerned for his safety and well being.(This note prepared by Leticia Roberts, ADJUNCT INSTRUCTOR OF WOMEN'S STUDIES Manufacturing Analyst, and signed off by Lilia Olivas LCSW 01/23/17)" Upon crisis eval pt confirms the above and continues to express feeling of hopelessness and helplessness and a wish to be . Pt denies any plan to end his life. Pt appears depressed and anxious. Pt reports that in addition to the above mentioned stressors he has also been depressed because over the past year 2 close friend of his have dies and his girlfriend of 10 years broke up with him. 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 Pt is unsure when his exact court carlene is but thinks it is around February 09. Pt reports that he has been having racing thoughts, poor impulse control and feeling anxious and depressed. He reports normal sleep and appetite, but identifies that he has been having poor motivation with difficulty getting out of bed to do anything. Pt endorses current passive SI but denies any current HI/SH or psychosis or any hx of any. Pt denies any hx of inpt tx. Pt reports that he was in out pt tx with Dr. Larson but for Anxiety, Depression , and ADHD and was prescribed Adderall, Paxil , and ativan. Pt explains that he missed some appointments, so he was discharged, and when he tried to return, he looked her up on her web page and saw that she no longer accepts [employer]. Pt reports that he has been trying to get a psychiatrist since then, but has not been able too. He explains that when he goes off his adderall he get too impulsive and that since he has not been in treatment he "ended up hanging out with the wrong people and got arrested because I was too impulsive off my adderall." Pt denies abusing his adderall and denies using any other substances or alcohol. Pt was seen in ED on 12/17/16 and was discharged with the following scripts: Dextroamphetamine/Amphetamine (Adderall XR 30 MG Capsule) 2 CAP PO QAM #30 CAP, Paroxetine HCl (Paxil) 1 TAB PO DAILY #30 TAB, Lorazepam ( Ativan) 1 TAB PO BIDP PRN anxiety #10 TAB . 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 This clinician contacted Dr. Larson who informed that pt was discharged because he stopped coming for tx and she confirmed that she was prescribing him Adderall for ADHD and Paxil for anxiety. She reports that she last saw him about 6 months ago. This clinician also spoke with Garland katherine at pt's current residence [facility] who reported that pt has 10 adderall pills left in his bottle. Pt would like to be admitted to [facility] to treat his depression and passive SI. It was explained to pt that he will be evaluated for medication and recommendations will be made and there is no guarantee that the adderall will be continued. Pt confirmed an understanding of this but continues to express that importance of how much his functioning improves when he takes adderall. Case reviewed with Dr. De La Vega of Psychiatry and pt will be admitted to [facility] voluntarily. Pt in agreement and requested that his promotions officer be notified. This clinician spoke to Pt's promotions officer Abelino Roman to inform him of pt's admission and also faxed him a written confirmation (see original in paper chart). Patient's Address: [address] [place] [address] Other Phone Number: Who Do You Live With? Other (see notes) ([facility]) Feel Safe Where You Live? Yes Feel Safe in Your Relationship Yes Marital Status: single Do You Have Children? No Primary Language? Faroese Language(s) Spoken At Home: Faroese Family/Informants Interviewed: Mother Allergies - Coded Allergies: NO KNOWN ALLERGIES (03/05/13) Current Medications - Scheduled Medications Dextroamphetamine/Amphetamine (Adderall XR 30 MG Capsule) 30 MG CAP.ER.24H 2 CAP PO DAILY ADHD (Reported) Entered as Reported by KIRTI PARRISH on 01/28/16 1347 Dextroamphetamine/Amphetamine (Adderall XR 30 MG Capsule) 30 MG CAP.ER.24H 2 CAP PO QAM adhd #30 CAP Prescribed by REID BERNAL on 01/14/17 Dextroamphetamine/Amphetamine (Adderall 30 MG Tablet) 30 MG TABLET 1 TAB PO BID adhd #30 TAB Prescribed by APRIL JO on 11/23/16 Dextroamphetamine/Amphetamine (Adderall XR 30 MG Capsule) 30 MG CAP.ER.24H 1 CAP PO BID ADHD #30 CAP Prescribed by APRIL JO on 11/23/16 Fluticasone-Salmeterol (Advair 100-50 Diskus) 100 MCG-50 MCG/DOSE BLST.W.DEV 1 PUF INH BID asthma #1 INHAL Prescribed by APRIL JO on 11/23/16 Paroxetine HCl (Paxil) 10 MG TABLET 1 TAB PO DAILY anxiety #30 TAB Prescribed by REID BERNAL on 01/14/17 Paroxetine HCl (Paxil) 10 MG TABLET 1 TAB PO DAILY depression #15 TAB Prescribed by APRIL JO on 11/23/16 Scheduled PRN Medications Albuterol Sulfate (Proair Hfa) 90 MCG HFA.AER.AD 2 PUF INH Q4-6 PRN PRN sob #1 INHAL Prescribed by APRIL JO on 11/23/16 Lorazepam (Ativan) 0.5 MG TABLET 1 TAB PO BIDP PRN anxiety #10 TAB Prescribed by REID BERNAL on 01/14/17 Lorazepam (Ativan) 0.5 MG TABLET 1 TAB PO BIDP PRN anxiety #12 TAB Prescribed by APRIL JO on 11/23/16 Lab Results: Laboratory Tests 01/23/172148: Anion Gap 12, Estimated GFR > 60, BUN/Creatinine Ratio 12.2, Glucose 88, Calcium 9.8, Total Bilirubin 0.6, AST 20, ALT 59, Alkaline Phosphatase 45, Total Protein 6.7, Albumin 4.2, Globulin 2.5, Albumin/Globulin Ratio 1.7, TSH &T3 &Free T4 Intrp 0.783, CBC w Diff NO MAN DIFF REQ, RBC 4.94, MCV 85.1, MCH 29.0, RDW 13.4, MPV 8.1, Gran % 57.7, Lymphocytes % 33.6, Monocytes % 5.3, Eosinophils % 2.7, Basophils % 0.7, Absolute Granulocytes 4.9, Absolute Lymphocytes 2.9, Absolute Monocytes 0.4, Absolute Eosinophils 0.2, Absolute Basophils 0.1, PUBS MCHC 34.1, Serum Alcohol < 10.0 01/23/172116: Urine Opiates Screen < 100.00, Methadone Screen < 40, Barbiturate Screen < 60, Ur Phencyclidine Scrn < 6.00, Amphetamines Screen > 1450 H, U Benzodiazepines Scrn < 85, Urine Cocaine Screen < 50, Urine Cannabis Screen < 5.00 Toxicology Screen Completed? Yes Results: positive Past History Past Medical History Medical History: ASTHMA AORTIC VALVE STENOSIS ANXIETY, ADHD. Past Surgical History Surgical History non-contributory Abuse/Trauma History Trauma History/Current Trauma: Denies Legal History Current Legal Status: on probation Have you ever been arrested? Yes Number of Arrests: [address] Dates: Mid January 2017 It Generalist Abelino Roman Psychosocial History Strengths/Capabilities: has good insight for his need for tx, supportive Mom Physical Limitations (Interventions): none reproted Psychiatric Treatment History Psych Treatment Psychiatric Treatment Yes Inpatient Treatment No Outpatient Treatment Yes Location of Treatment Dr. Neo Davies [place] Reason for Treatment Depression, Anxiety, ADHD Dates of Treatment stopped going 6 months ago Response to Treatment unclear Diagnosis by History: Anxiety, Depression, ADHD Risk Factors: high anxiety/distress, poor impulse control, male Substance Use/Abuse History Drug Use/Abuse minimum 12mo Hx Substances Used/Abused No Substance Abuse Treatment Substance Abuse Treatment Past Substance Abuse TX No Inpatient Treatment No Outpatient Treatment No Sexual History Sexually Active No Sexual Orientation Heterosexual Education History Highest Level of Education: high school/GED Preferred Learning Style: experiential Current Mental Status Mental Status Orientation: Person, Place, Situation Affect: Anxious, Depressed, Hopeless, Sad Speech: Mumbled Neuro-vegetative: Anhedonia, Concentration Poor, Helpless, Loss of Interest Appearance Appearance- Dress/Hygiene: fairly groomed, good eye contact Behaviors Thought Process: WNL Thought Content: WNL Memory: WNL Insight: Fair SI/HI Risk Assessment - Minimum 6mo History- Past Suicidal Ideation/Attempts No Current Suicidal Ideation/Att Yes Past Homicidal Ideation/Att: No Current Homicidal Ideation/Attempts No Degree of Intent: Thoughts/No Intent Risk Factors: high anxiety/distress, poor impulse control, male Lethality Ratin Needs/Init TX Plan/Goals: safety and stabilization of sx, individual group and family therapy, med eval AUDIT-C Questionnaire: AUDIT-C Questionnaire: Response Value ETOH use in the past year Never 0 # drinks typical/day Doesn't Drink 0 6 or > drinks per occasion Never 0 Total 0 DSM5/PS Stressors/Medical Prob Diagnosis' (DSM 5, Stressors, Medical): Unspecified Depression F32.9, 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
--- NOTE | 2017-01-24 12:19 | SOCIAL WORKER SOCIAL HX PSYCH ---
Social History Basic Assessment Insurance Authorization: Insurance #1: Insurance name: [employer] Phone number: Policy number: [id number] Group number: Authorization number: Curr Source of Income/Entitlements: food stamps, Medicaid Primary Care Physician: Patient's PCP: PATIENT HAS NO PRIMARY CARE DR PCP's Phone Number: Present Problem: Pt is a 26yo male who was brought to the ED by his mother Harper Yang due to concern that he may hurt himself due to the severity of his depression. Crisis spoke to Mom last night who expressed the following: "Spoke to patient's mother, Diana Yang . Diana states "I am concerned that Peter is not doing good. He has so many things going on." Diana states the patient has a history of heroin abuse. She reports the patient has been dealing with anxiety since he was a child. She states that the patient was discharged from [facility] for missing an appointment and stopped taking his medication in August,. In October,, she reports he decompensated, relapsed and was arrested. She reports he was charged with "serious charges" including robbery and that he is very fearful of the possible outcome being care home. She reports the patient has been anxious, depressed and helpless since the arrest and "always full of doom and gloom." However, she reports the patient has been improving recently since he started taking medication again. She reports the patient intended to make an appointment with [facility] for an intake. She reports the patient is currently residing at the [facility] ([facility]) in [place], [place] pending the disposition of his case. She reports she took the patient on a pass from [facility] today to see his estate planning attorney. She reports she became concerned for the patient after the meeting with the senior administrative assistant. She reports that the patient became despondent and stated "I do not want to be here. I would be better off ." She reports she brought him to the [facility] ED because she was concerned for his safety and well being.(This note prepared by Leticia Roberts, MEDICAL DEVICE SALES REPRESENTATIVE Retail Department Supervisor, and signed off by Lilia Olivas, HEARING IMPAIRED TEACHER 01/23/17)" Upon crisis eval pt confirms the above and continues to express feeling of hopelessness and helplessness and a wish to be . Pt denies any plan to end his life. Pt appears depressed and anxious. Pt reports that in addition to the above mentioned stressors he has also been depressed because over the past year 2 close friend of his have dies and his girlfriend of 10 years broke up with him. 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 Pt is unsure when his exact court carlene is but thinks it is around February 09. Pt reports that he has been having racing thoughts, poor impulse control and feeling anxious and depressed. He reports normal sleep and appetite, but identifies that he has been having poor motivation with difficulty getting out of bed to do anything. Pt endorses current passive SI but denies any current HI/SH or psychosis or any hx of any. Pt denies any hx of inpt tx. Pt reports that he was in out pt tx with Dr. Larson but for Anxiety, Depression , and ADHD and was prescribed Adderall, Paxil , and ativan. Pt explains that he missed some appointments, so he was discharged, and when he tried to return, he looked her up on her web page and saw that she no longer accepts [employer]. Pt reports that he has been trying to get a psychiatrist since then, but has not been able too. He explains that when he goes off his adderall he get too impulsive and that since he has not been in treatment he "ended up hanging out with the wrong people and got arrested because I was too impulsive off my adderall." Pt denies abusing his adderall and denies using any other substances or alcohol. Pt was seen in ED on 12/17/16 and was discharged with the following scripts: Dextroamphetamine/Amphetamine (Adderall XR 30 MG Capsule) 2 CAP PO QAM #30 CAP, Paroxetine HCl (Paxil) 1 TAB PO DAILY #30 TAB, Lorazepam ( Ativan) 1 TAB PO BIDP PRN anxiety #10 TAB . The ED provider documented that he reviewed pt's FLATBED PRESS OPERATOR and that he had scripts filled in early Nov. This clinician contacted Dr. Larson who informed that pt was discharged because he stopped coming for tx and she confirmed that she was prescribing him Adderall for ADHD and Paxil for anxiety. She reports that she last saw him about 6 months ago. This clinician also spoke with Garland murphy at pt's current residence [employer] who reported that pt has 10 adderall pills left in his bottle. Pt would like to be admitted to [facility] to treat his depression and passive SI. It was explained to pt that he will be evaluated for medication and recommendations will be made and there is no guarantee that the adderall will be continued. Pt confirmed an understanding of this but continues to express that importance of how much his functioning improves when he takes adderall. Case reviewed with Dr. De La Vega of Psychiatry and pt will be admitted to [facility] voluntarily. Pt in agreement and requested that his air support control officer be notified. This clinician spoke to Pt's air support control officer Abelino Roman [phone] to inform him of pt's admission and also faxed him a written confirmation (see original in paper chart). Primary Language? P[place] Language(s) Spoken At Home: [place] Living Situation Other Living Arrangement: [facility] Feel Safe Where You Are Living Yes Feel Safe in Relationships? Yes Allergies - Coded Allergies: NO KNOWN ALLERGIES (03/05/13) Current Medications - Scheduled Medications Dextroamphetamine/Amphetamine (Adderall XR 30 MG Capsule) 30 MG CAP.ER.24H 2 CAP PO QAM adhd #30 CAP Prescribed by REID BERNAL on 01/14/17 Last Taken: 01/23/17 0800 Dextroamphetamine/Amphetamine (Adderall XR 30 MG Capsule) 30 MG CAP.ER.24H 1 CAP PO BID ADHD #30 CAP Prescribed by APRIL JO on 11/23/16 Last Taken: At an unknown date and time Fluticasone-Salmeterol (Advair 100-50 Diskus) 100 MCG-50 MCG/DOSE BLST.W.DEV 1 PUF INH BID asthma #1 INHAL Prescribed by APRIL JO on 11/23/16 Last Taken: At an unknown date and time Paroxetine HCl (Paxil) 10 MG TABLET 1 TAB PO DAILY anxiety #30 TAB Prescribed by REID BERNAL on 01/14/17 Last Taken: 01/24/17 0830 Scheduled PRN Medications Albuterol Sulfate (Proair Hfa) 90 MCG HFA.AER.AD 2 PUF INH Q4-6 PRN PRN sob #1 INHAL Prescribed by APRIL JO on 11/23/16 Last Taken: 01/24/17 0830 Lorazepam (Ativan) 0.5 MG TABLET 1 TAB PO BIDP PRN anxiety #10 TAB Prescribed by REID BERNAL on 01/14/17 Last Taken: 01/21/17 0800 Past History Past Medical History Neurological: ADHD EENT: NONE Cardiovascular: NONE Respiratory: asthma, pneumonia Gastrointestinal: NONE Hepatic: NONE Renal: NONE Musculoskeletal: NONE Psychiatric: anxiety, ADHD Endocrine: NONE Blood Disorders: NONE Cancer(s): NONE SOLE SCRAPER/Reproductive: NONE Past Surgical History Surgical History: non-contributory, N /Family History Place/Country of Origin: [facility] Childhood Family Constellation: Raised by Mom and Dad. They seperated when pt was13 and pt stayied with his Mom. pt has a younger brother Primary Childhood Caretakers: father, mother Family Life During Childhood: Raised by Mom and Dad. They seperated when pt was13 and pt stayied with his Mom. pt has a younger brother DCF Involvement? No Mother's Age (Current/): 49 Relationship w/Mother: supportive Father's Age (Current/): 48 Relationship w/Father: supportive Any Sibling(s)? Yes Sibling's Gender(s)/Age(s): male Sibling 1: Relationship w/Sibling(s): good but I wish it was better Relationship w/Friends: pt denies that he has any supportive friends Family Psych/Sub Abuse/Add Hx: Grandfather alcohol use d/o, and Father Opiate Use d/o Abuse/Trauma History Trauma History/Current Trauma: Denies Legal History Current Legal Status: on probation Pending Court Dates: January 2017 Have you ever been arrested Yes Number of Arrests: 2 Hx of Juvenile Legal Charges? Yes If Yes: assault Hx of Adult Legal Charges? Yes If Yes: robery List/Date Most Recent Lgl Chgs: Was arrested for assaulting his step-father at age 17 and also was arrested Oct 2016 for robery [employer] Abelino Roman Psychosocial History Primary Support System: father, mother, sibling(s) Strengths/Capabilities: has good insight for his need for tx, supportive Mom Weaknesses: poor impulse control Physical Limitations (Interventions): none reproted Last Physical: unknown History of Seizures? No History of Blackouts? No ADL Limitations: none reported [place]/Social/Peer Relations pt denies he has any supportive friends, but identifies his parents as support Meaningful Activities: reading, making music, drawing Childhood Roman Catholic: Presybeterian Current Adventist Affiliation: Presybeterian Is Spirituality Important to You? yes Patient's Ethnicity: Serbian Cultural/Ethnic Issues: none reported Are There Developmental Issues? No Milestones Achieved: fine motor, gross motor Psychiatric Treatment History Psych Treatment Inpatient Treatment No Outpatient Treatment Yes Location of Treatment Dr. Neo [place] Reason for Treatment Depression, Anxiety, ADHD Dates of Treatment stopped going 6 months ago Response to Treatment unclear Precipitating Factors: Pt is a 26yo male who was brought to the ED by his mother Harper Yang due to concern that he may hurt himself due to the severity of his depression. Crisis spoke to Mom last night who expressed the following: "Spoke to patient's mother, Diana Yang . Diana states "I am concerned that Peter is not doing good. He has so many things going on." Diana states the patient has a history of heroin abuse. She reports the patient has been dealing with anxiety since he was a child. She states that the patient was discharged from [facility] for missing an appointment and stopped taking his medication in August,. In October,, she reports he decompensated, relapsed and was arrested. She reports he was charged with "serious charges" including robbery and that he is very fearful of the possible outcome being care home. She reports the patient has been anxious, depressed and helpless since the arrest and "always full of doom and gloom." However, she reports the patient has been improving recently since he started taking medication again. She reports the patient intended to make an appointment with [facility] for an intake. She reports the patient is currently [facility]) in [place], [place] pending the disposition of his case. She reports she took the patient on a pass from [facility] today to see his estate planning attorney. She reports she became concerned for the patient after the meeting with the senior administrative assistant. She reports that the patient became despondent and stated "I do not want to be here. I would be better off ." She reports she brought him to the [facility] ED because she was concerned for his safety and well being.(This note prepared by Portis Alejandra, MEDICAL DEVICE SALES REPRESENTATIVE Retail Department Supervisor, and signed off by Lilia Olivas, HEARING IMPAIRED TEACHER 01/23/17)" Upon crisis eval pt confirms the above and continues to express feeling of hopelessness and helplessness and a wish to be . Pt denies any plan to end his life. Pt appears depressed and anxious. Pt reports that in addition to the above mentioned stressors he has also been depressed because over the past year 2 close friend of his have dies and his girlfriend of 10 years broke up with him. Pt also informed that after he was arrested he lost his employment a the [employer]. Pt is unsure when his exact court carlene is but thinks it is around February 09. Pt reports that he has been having racing thoughts, poor impulse control and feeling anxious and depressed. He reports normal sleep and appetite, but identifies that he has been having poor motivation with difficulty getting out of bed to do anything. Pt endorses current passive SI but denies any current HI/SH or psychosis or any hx of any. Pt denies any hx of inpt tx. Pt reports that he was in out pt tx with Dr. Larson but for Anxiety, Depression , and ADHD and was prescribed Adderall, Paxil , and ativan. Pt explains that he missed some appointments, so he was discharged, and when he tried to return, he looked her up on her web page and saw that she no longer accepts [employer]. Pt reports that he has been trying to get a psychiatrist since then, but has not been able too. He explains that when he goes off his adderall he get too impulsive and that since he has not been in treatment he "ended up hanging out with the wrong people and got arrested because I was too impulsive off my adderall." Pt denies abusing his adderall and denies using any other substances or alcohol. Pt was seen in ED on 12/17/16 and was discharged with the following scripts: Dextroamphetamine/Amphetamine (Adderall XR 30 MG Capsule) 2 CAP PO QAM #30 CAP, Paroxetine HCl (Paxil) 1 TAB PO DAILY #30 TAB, Lorazepam ( Ativan) 1 TAB PO BIDP PRN anxiety #10 TAB . The ED provider documented that he reviewed pt's FLATBED PRESS OPERATOR and that he had scripts filled in early Nov. This clinician contacted Dr. Larson who informed that pt was discharged because he stopped coming for tx and she confirmed that she was prescribing him Adderall for ADHD and Paxil for anxiety. She reports that she last saw him about 6 months ago. This clinician also spoke with Garlnad katherine at pt's current residence [facility] [employer] who reported that pt has 10 adderall pills left in his bottle. Pt would [facility] be [facility] to treat his depression and passive SI. It was explained to pt that he will be evaluated for medication and recommendations will be made and there is no guarantee that the adderall will be continued. Pt confirmed an understanding of this but continues to express that importance of how much his functioning improves when he takes adderall. Case reviewed with Dr. De La Vega of Psychiatry and pt will be admitted to [facility] voluntarily. Pt in agreement and requested that his air support control officer be notified. This clinician spoke to Pt's air support control officer Abelino Roman to inform him of pt's admission and also faxed him a written confirmation (see original in paper chart). Current [employer]: none Treatment of Prior Episodes: denies Diagnosis: Anxiety, Depression, ADHD Psychodynamic Issues: none identified at this time Risk Factors: high anxiety/distress, poor impulse control, male Substance Use/Abuse History Drug Use/Abuse Substance Used/Abused No History Substance Abuse Treatment Substance Abuse Treatment Inpatient Treatment No Outpatient Treatment No Sexual History Sexually Active No Sexual Orientation Heterosexual Education History Highest Level of Education: high school/GED Highest Grade Completed: 12 Preferred Learning Style: experiential HX of Learning Difficulties: difficulty concentrating Barriers to Learning: None reported Special Communication Needs: None reported Employment History Employment Unemployed Vocation/Occupational Hx: 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 of Jobs in Last 5 Years: 4 Attendance: Normal Performance: Good History Have You Been in The ? No Current Mental Status Problem List: 1. ADHD (attention deficit hyperactivity disorder) 2. Asthma 3. Anxiety Chronic Unknown 4. Depression Mental Status Orientation: Person, Place, Situation Affect: Anxious, Depressed, Hopeless, Sad Speech: Mumbled Neuro-vegetative: Anhedonia, Concentration Poor, Helpless, Loss of Interest Appearance Appearance- Dress/Hygiene: fairly groomed, good eye contact Behaviors Thought Process: WNL Thought Content: WNL Memory: WNL Insight: Fair SI/HI Risk Assessment Past Suicidal Ideation/Attempts No Current Suicidal Ideation/Att Yes Past Homicidal Ideation/Att: No Current Homicidal Ideation/Attempts No Degree of Intent: Thoughts/No Intent Risk Factors: High Anxiety/Distress, Male, Poor impulse control Lethality Ratin - Conclusion and Recommendations for treatment - and discharge planning Summary: Pt is a 26yo male who was brought to the ED by his mother Harper Yang due to concern that he may hurt himself due to the severity of his depression. Crisis spoke to Mom last night who expressed the following: "Spoke to patient's mother, Diana Yang . Diana states "I am concerned that Peter is not doing good. He has so many things going on." Diana states the patient has a history of heroin abuse. She reports the patient has been dealing with anxiety since he was a child. She states that the patient was discharged from [facility] for missing an appointment and stopped taking his medication in August,. In October,, she reports he decompensated, relapsed and was arrested. She reports he was charged with "serious charges" including robbery and that he is very fearful of the possible outcome being care home. She reports the patient has been anxious, depressed and helpless since the arrest and "always full of doom and gloom." However, she reports the patient has been improving recently since he started taking medication again. She reports the patient intended to make an appointment with [facility] for an intake. She reports the patient is currently residing at [facility]) in [place], [place] pending the disposition of his case. She reports she took the patient on a pass from [facility] today to see his estate planning attorney. She reports she became concerned for the patient after the meeting with the senior administrative assistant. She reports that the patient became despondent and stated "I do not want to be here. I would be better off ." She reports she brought him to the [facility] ED because she was concerned for his safety and well being.(This note prepared by Leticia Roberts, MEDICAL DEVICE SALES REPRESENTATIVE Retail Department Supervisor, and signed off by Lilia Olivas LCSW 01/23/17)" Upon crisis eval pt confirms the above and continues to express feeling of hopelessness and helplessness and a wish to be . Pt denies any plan to end his life. Pt appears depressed and anxious. Pt reports that in addition to the above mentioned stressors he has also been depressed because over the past year 2 close friend of his have dies and his girlfriend of 10 years broke up with him. Pt also informed that after he was arrested he lost his employment a the [employer]. Pt is unsure when his exact court carlene is but thinks it is around February 09. Pt reports that he has been having racing thoughts, poor impulse control and feeling anxious and depressed. He reports normal sleep and appetite, but identifies that he has been having poor motivation with difficulty getting out of bed to do anything. Pt endorses current passive SI but denies any current HI/SH or psychosis or any hx of any. Pt denies any hx of inpt tx. Pt reports that he was in out pt tx with Dr. Larson but for Anxiety, Depression , and ADHD and was prescribed Adderall, Paxil , and ativan. Pt explains that he missed some appointments, so he was discharged, and when he tried to return, he looked her up on her web page and saw that she no longer accepts [employer]. Pt reports that he has been trying to get a psychiatrist since then, but has not been able too. He explains that when he goes off his adderall he get too impulsive and that since he has not been in treatment he "ended up hanging out with the wrong people and got arrested because I was too impulsive off my adderall." Pt denies abusing his adderall and denies using any other substances or alcohol. Pt was seen in ED on 12/17/16 and was discharged with the following scripts: Dextroamphetamine/Amphetamine (Adderall XR 30 MG Capsule) 2 CAP PO QAM #30 CAP, Paroxetine HCl (Paxil) 1 TAB PO DAILY #30 TAB, Lorazepam ( Ativan) 1 TAB PO BIDP PRN anxiety #10 TAB . The ED provider documented that he reviewed pt's FLATBED PRESS OPERATOR and that he had scripts filled in early Nov. This clinician contacted Dr. Larson who informed that pt was discharged because he stopped coming for tx and she confirmed that she was prescribing him Adderall for ADHD and Paxil for anxiety. She reports that she last saw him about 6 months ago. This clinician also spoke with Garland murphy at pt's current residence [facility] who reported that pt has 10 adderall pills left in his bottle. Pt would [facility] be [facility] to treat his depression and passive SI. It was explained to pt that he will be evaluated for medication and recommendations will be made and there is no guarantee that the adderall will be continued. Pt confirmed an understanding of this but continues to express that importance of how much his functioning improves when he takes adderall. Case reviewed with Dr. De La Vega of Psychiatry and pt will be admitted to [facility] voluntarily. Pt in agreement and requested that his air support control officer be notified. This clinician spoke to Pt's air support control officer Abelino Roman to inform him of pt's admission and also faxed him a written confirmation (see original in paper chart).
[2017-01-24 12:40] VITALS: BP 147/81
[2017-01-24 16:01] VITALS: BP 136/59
[2017-01-24 20:06] VITALS: BP 133/85
[2017-01-25 08:13] VITALS: BP 130/82
[2017-01-25 12:24] VITALS: BP 137/79
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
--- NOTE | 2017-01-25 13:54 | CPS MD/APRN INITIAL ASSE PSYCH ---
Psychiatric Admission Duplex Trimmer's Note Reviewed: Yes Patient Seen and Examined: Yes Identifying Information: Patient is a 26-year-old male. Chief Complaint: As per Crisis: "I just wish I was ." Reaction to Hospitalization: Cooperative. Depressed, Anxious mood. Flat affect. Focused on obtaining Adderall and Ativan. History of Present Illness Onset of Illness: As per Crisis note, mother states that the patient was discharged from Care for missing an appointment and stopped taking his medication in August,. As per [facility], patient was being medicated with Adderall and lorazepam as late as 09/08/2016, by Dr. Faulkner in [place]. Circumstances Leading to Admission: Brought to the ED by his mother Harper Yang due to concern that he may hurt himself due to the severity of his depression. Patient is [facility]) in [place], [place] pending the disposition of his legal case. Problem(s) Justifying Need for Admission: Suicidal ideation Past Psychiatric History Past Diagnosis(es)- if any: Depression, Anxiety, ADHD, was prescribed Adderall, Paxil , and ativan. Past Precipitating Factors- if any: Currently patient states he gets panic attacks thinking about the prospect of going to [facility]. - Include inpatient and outpatient treatment Treatment History: Dr. Faulkner, [facility] until August 2016. Discharged from Care for missing an appointment and stopped taking his medication in August,. History of Suicide Attempts or Gestures Denies Substance Abuse History: Reports polysubstance abuse when not taking his medications of Ativan and Adderall. Allergies: Coded Allergies: NO KNOWN ALLERGIES (03/05/13) Home Med List: Adderall, Paxil , and ativan, last prescribed in August 2016 Advair: Patient states he does not take this. 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 Substance Use: Reports that his father had been on "painkillers." Suicides: Denies Social History Living Situation: Currently housed at the [facility] ([facility]) in [place]. Prior to that lived with his mother. Significant Relationships (family/friends): His mother. States that all of his close friends have in car crashes, from drug overdose, or heart attack. States he can count approximately 5 of these friends at this time. 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 Legal: Currently housed at the [facility] ([facility]) in [place]. Awaiting court disposition. Patient is worried that he will be sent to [facility]. Healthly Behaviors Screening Tobacco Screening Tobacco Use from ED Docu: Current Daily Use Daily Tobacco Use Amount/Type: => 5 Cigarettes daily - If tobacco counseling indicated - the following topics are required. - #1 Recognizing dangerous situations. - #2 Coping Skills. - #3 Basic information about quitting. Status of Tobacco Cessation Counseling: #1, #2 AND #3 Completed Cessation Med Status: Nicotine Patch Ordered Alcohol Screening - ETOH screen POS if BAL >=80 or Audit-C>= M4/F3 Audit-C Score from Diag Assess: 0 Blood Alcohol Level: Laboratory Tests 01/23 2149 Toxicology Serum Alcohol (<10 MG/DL) < 10.0 Alcohol Use Screening Results: Neg per Audit C &/or BAL - If ETOH counseling indicated - the following topics are required. - #1 Express concern about the patient's - drinking at unhealthy levels, include informing - of national norms for moderate drinking: - men <= 14 drinks/week, max 4 drinks/occasion - women <= 7 drinks/week, max 3 drinks/occasion - #2 Providing feedback, including linking alcohol to - negative physical effects (liver injury, hypertension) - negative emotional effects (relationship problems and - depression) - negative occupational consequences (reduced work - performance) - #3 Advising the patient to abstain from alcohol or - to drink below national norms for moderate drinking - (as listed above). Status of ETOH Use Counseling: N/A B/C NO ETOH Use Metabolic Screening - Screen if on a Neuroleptic Medication - Metabolic screening should include: - Blood Pressure, BMI, Glucose or Hgb A1c, & a - Lipid profile from within the past 365 days. Metabolic Screening () Not Applicable, patient not on a neuroleptic. OR ([x]) Patient on a neuroleptic(s) . Enter below results for Glucose or Hemoglobin A1C, and lipid panel if obtained during the last 365 days. BMI: 27.400 Blood Pressure: 137/79 Laboratory Results (If applicable): Labs ordered and pending Exam and Plan Mental Status Examination Ambulation Status: Ambulates independently with steady gait. Appearance: Dressed in paper hospital scrubs. Poorly groomed Attitude towards examiner: Depressed, anxious but cooperative. Psychomotor activity: Within normal limits Behavior: Depressed, anxious but cooperative. Quality of speech: Speech is well articulated, goal-directed, average in rate, quiet in tone and volume. Affect: Congruent Mood: Depressed, anxious. Suicidal Ideation: Patient reports wishing that he were not alive, but has no plan or intent to harm himself. States that he will not kill himself. Is able to contract for safety. Homicidal Ideation: Denies Hallucinations: Denies Paranoid/Delusional Material: Denies Difficulties with thought organization: Appears organized. Insight: Poor Judgment: Poor Orientation: Alert and oriented to person, place and time Cognition: Within normal limits Memory Function: Within normal limits, but not tested. Estimate of intellectual functioning: Average Assets/Strengths Patient Identified Assets/Strengths: "I am good at making music and writing, when I'm on my meds." Impression/Plan Impression and Plan: This a 26-year-old young man presenting with a sad and anxious affect. Mostly focused on his perceived need for Adderall and Ativan. Found at 3:00 this afternoon in bed sleeping. Currently on a pass from judicial retirement, awaiting court disposition and possible [facility] time. Admitted for suicidal ideation. Patient states that although he wishes he were , he has no plan or intent to harm himself. Patient states and also believes that he will not kill himself. Plan: Continue Paxil which he had been prescribed on an outpatient basis for depression and anxiety. Wellbutrin for depression. Seroquel 25 mg as needed for anxiety. 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 Additional information is needed from collaterals, including his mother Anticipate once clinically stable, that the patient will be discharged to back to judicial retirement. - Factors that would help patient function - in a less restrictive setting. Factors: Resolution of suicidal ideation.
[2017-01-25 16:10] VITALS: BP 146/83
--- NOTE | 2017-01-25 16:20 | SOCIAL WORKER TX PLAN PSYCH ---
Treatment Plan - Please Document: - Evidence that there is ongoing collaboration between - the patient and the interdisciplinary team, - including the patient's active participation and - responsibility for engaging in the treatment regimen, - and that the treatment plan is individualized and - relevant to the patient's conditions. - Treatment plan should reflect documentation indicating - that all active therapeutic efforts are included. Strengths/Capabilities: has good insight for his need for tx, supportive Mom Physical Limitations (Interventions): none reproted Patient Identified Trmt Goals: "I need to get back on my medication." Discharge Plan: [facility] Problem/Goals #1 Problem #1: suicidal ideation Goal (Short Term): Today I will attend 2 groups Today I will identify 2 stressors Today I will identify 2 positive supports Today I will work on recognizing 3 emotions I am feeling Goal (Retirement): Be free of suicidal thoughts/attempts Develop 3 coping skills to deal with depression Identify 3 positive support systems to call in crisis Develop a crisis plan with 3 marquez people Identify 2 positive traits per week about myself Identify 2 things I have to look forward to Identify 2 positive people in my life and 1 thing I appreciate about them Interventions: Learn ways to manage depressive symptoms accordingly and identify positive supports to manage life stressors and mood fluctuations. Modalities: Encourage groups, education on depression, provide CBT treatment, family meeting. 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
--- NOTE | 2017-01-25 16:31 | SOCIAL WORKER PROG NOTE PSYCH ---
Social Work Progress Note Progress Note SW met with patient for the first time today. Patient found sleeping in his room late in the afternoon but was receptive to getting up and meeting with me when asked. Patient reports that he is upset that he came in because he was "only looking to get a new prescriber for my meds." Patient reports that he was seeing Dr. Larson for medication but she stopped treating him due to no longer accepting his insurance. Patient is seeking Ativan and Adderall and not being treated with that while in [facility]. Patient is upset by this, put a 3 day paper in and wishes to leave as soon as possible. Patient denies SI at present but does report being depressed and anxious. He reports that he will return to [facility] in [place] upon discharge from the hospital. He agreed to allow this keno writer to call his mother to setup a family meeting while in the hospital. Patients mother , Diana [phone], who is coming in tomorrow at 3PM. Patient would not sign ALYSON for his PO Abelino Simmons out of [place] [address]. He seemed resistent to any discussion regarding substance abuse and did not want his PO having any information about substance abuse and refused to sign the ALYSON all together.
[2017-01-25 19:39] VITALS: BP 149/78
[2017-01-26 08:07] VITALS: BP 143/78
[2017-01-26 12:14] VITALS: BP 140/98
[2017-01-26] MEDS ORDERED: NICOTINE PATCH1 EAC3 TOP (15:24)
[2017-01-26] MEDS ORDERED: QUETIAPINE FUMA25 M1 PO (15:24)
[2017-01-26] MEDS ORDERED: TRAZODONE HCL50 M1 PO (15:24)
--- NOTE | 2017-01-26 15:28 | CP SOUTH PROGRESS NOTE PSYCH ---
Psych (Inpt) Progress Note Progress Note Progress Note: I discussed this patient's progress to date, current mental status, treatment process in the context of the treatment plan, and discharge planning with staff/ team in the daily morning inpatient team meeting. I also met with the patient myself in individual session. SUBJECTIVE: "It's stressful because I might be going to longterm for 10 years." OBJECTIVE: Current Medications Sig/Shelia Start time Last Medication Dose Route Stop Time Status Admin Acetaminophen 650 MG .STK-MED ONE 01/26 025 DC PO 01/26 025 Acetaminophen 650 MG .STK-MED ONE 01/25 1847 DC PO 01/25 1848 Acetaminophen 650 MG Q6P PRN 01/24 0930 AC 01/26 PO 0302 Al Hydroxide/Mg 30 ML Q4-6 PRN PRN 01/24 0930 AC Hydroxide PO Albuterol Sulfate 3 ML Q4-PRN PRN 01/25 1430 AC INH Albuterol Sulfate 2 PUF Q4P PRN 01/24 0200 AC 01/26 INH 1012 Budesonide/ 2 PUF BID 01/24 1053 AC 01/24 Formoterol Fumarate INH 2331 Bupropion HCl 300 MG DAILY 01/24 1055 AC PO Gabapentin 300 MG .STK-MED ONE 01/25 2011 DC PO 01/25 2012 Gabapentin 300 MG Q6P PRN 01/24 0930 AC 01/25 PO 2016 Ibuprofen 600 MG Q6P PRN 01/25 2100 AC 01/26 PO 1011 Magnesium Hydroxide 30 ML AT BEDTIME NEED.. 01/24 0930 AC PO Nicotine 21 MG DAILY 01/24 1000 AC 01/26 TOP 1014 Paroxetine HCl 10 MG DAILY 01/24 1055 AC 01/26 PO 1012 Quetiapine Fumarate 25 MG Q2 HRS NEEDED PRN 01/25 1530 AC 01/26 PO 1013 Trazodone HCl 50 MG .STK-MED ONE 01/26 025 DC PO 01/26 0257 Trazodone HCl 50 MG AT BEDTIME PRN 01/24 0930 AC 01/26 PO 0302 Laboratory Tests 01/26 0635 Chemistry Hemoglobin A1c (4.2 - 5.8 %) 5.4 Triglycerides (<150 mg/dL) 398 H Cholesterol (< 200 MG/DL) 169 LDL Cholesterol, Calc (65 - 129 mg/dL) 56 L HDL Cholesterol (40 - 60 mg/dL) 34 L Cholesterol/HDL Ratio (0.00 - 4.88 %) 5 H Vital Signs Date Time Temp Pulse Resp B/P Pulse O2 O2 Flow FiO2 Ox Delivery Rate 01/26 1214 100 140/98 01/26 0807 97.2 84 143/78 01/25 1939 97.7 79 149/78 01/25 1610 96 146/83 ASSESSMENT: I met the patient today in a family meeting along with healthcare social worker Suyapa Obando, and the patient's mother. Patient reports that he is safe and ready for discharge. Reports that he is not depressed, not suicidal, only upset that he is not able to obtain Adderall and Ativan. His mother endorses that he has a history of ADHD. Patient states that he is not suffering from anxiety, however a major stressor is his pending court case which may lead to a sentence of 10 years in long term. Denies suicidal ideation, homicidal ideation, auditory hallucinations, visual hallucinations, paranoid ideation. Patient states and also believes that he will not kill himself. Speech is well articulated, goal-directed, average in rate, volume and tone. Calm and cooperative. Flat, quiet affect. Alert and oriented 3. The patient understands the risks/benefits/side effects of the medication and is agreeable to continue taking them. PLAN: Discharged today. Patient will return to alternative incarceration. Continue with current management as patient is improving. Continue to provide support and encouragement. PLAN: Continue with current management as patient is improving. Continue to provide support and encouragement.
--- NOTE | 2017-01-26 15:31 | DISCHARGE SUMMARY REPORT-PSYCH ---
Visit Information Visit Dates/Diagnosis' Admission Date: 01/24/17 Discharge Date: 01/26/17 Reason for Admission: Brought to the ED by his mother Harper Yang due to concern that he may hurt himself due to the severity of his depression. Patient is currently residing at the [facility] ([facility]) in [place], [place] pending the disposition of his legal case. Psy Discharge Primary Diag: General Anxiety Disorder Psy Discharge Secondary Diag: Unspecified depression; hx of ADHD. Hospital Course Significant Lab Findings: Lab TSH &T3 &Free T4 Intrp 0.783 uIU/mL 01/23/17 2149 Triglycerides 398 mg/dL H 01/26/17 0635 Amphetamines Screen > 1450 NG/ML H 01/23/172116 U Benzodiazepines Scrn < 85 NG/ML 01/23/172116 Course Complications: None. Consultations: Patient was seen for admission history and physical by Bryn Mancera MD. Please refer to his note for additional information. Allergies: Coded Allergies: NO KNOWN ALLERGIES (03/05/13) Hospital Course/TX Response: The patient was monitored on the unit for safety, depression, suicidal ideation. He participated in only a limited manner while on the unit. Patient admitted that his reason for coming to the hospital was not suicidal ideation, but he was seeking to obtain Ativan and Adderall, medications which he had been prescribed in the past for ADHD. He admitted to a history of substance abuse. When he was informed that we would not be prescribing those medications here on the unit, he requested to leave. He was medicated with trazodone at night for a sleep aid, and Seroquel as needed for exacerbation of anxiety. Today, the day of discharge, I met the patient in a family meeting along with clinical social work therapist Suyapa Obando, and the patient's mother. Patient reports that he is safe and ready for discharge. Reports that he is not depressed, not suicidal, only upset that he is not able to obtain Adderall and Ativan. His mother endorses that he has a history of ADHD. Patient states that he is not suffering from anxiety, however a major stressor is his pending court case which may lead to a sentence of 10 years in penitentiary. He is currently residing in alternative incarceration facility in [place], [place], awaiting court disposition. Denies suicidal ideation, homicidal ideation, auditory hallucinations, visual hallucinations, paranoid ideation. Patient states and also believes that he will not kill himself. Speech is well articulated, goal-directed, average in rate, volume and tone. Calm and cooperative. Flat, quiet affect. Alert and oriented 3. The patient understands the risks/benefits/side effects of the medication and is agreeable to continue taking them. Patient tolerating his medications well, without complaint. States he feels safe and ready for discharge. Discharge HBIPS - Tobacco Use Treatment Offered Post DC Medications Offered: Script Given-See Med List Post DC Tobacco Treatment Plan: [facility]x [facility] Program Appt Date: 02/08/17 Program Appt Time: 1600 - EtOH/Drug Use D/O Treatment Offered Post DC Medications Offered: NA-No EtOH/Drug Use D/O Post DC EtOH/SubAbuse TX Plan: NA-No EtOH/Drug Use D/O Metabolic Screening - Screen if on a Neuroleptic Medication - Metabolic screening should include: - Blood Pressure, BMI, Glucose or Hgb A1c, & a - Lipid profile from within the past 365 days. Metabolic Screening () Not Applicable, patient not on a neuroleptic. OR ([x]) Patient on a neuroleptic(s) . Enter below results for Glucose or Hemoglobin A1C, and lipid panel if obtained during the last 365 days. BMI: 27.400 Blood Pressure: 140/98 Laboratory Results (If applicable): Lab Cholesterol 169 MG/DL 01/26/17 0635 Cholesterol/HDL Ratio 5 % H 01/26/17 0635 HDL Cholesterol 34 mg/dL L 01/26/17 0635 Hemoglobin A1c 5.4 % 01/26/17 0635 LDL Cholesterol, Calc 56 mg/dL L 01/26/17 0635 Triglycerides 398 mg/dL H 01/26/17 0635 Discharge Instructions General Discharge Information Discharge Medications: Discharge Medications- (Dose, route, freq, indication): HOME MEDICATION LIST START taking these NEW Home Medications: Nicotine (Nicotine Dose: On the skin, DAILY for Qty: 30 Printed Patch) 21 MG/24 HOUR 21 Milligram smoking cessation Refills: 0 PATCH.TD24 Last Taken: 01/26/17 Time: 1000 Trazodone HCl Dose: ORAL, AT BEDTIME as Qty: 14 Printed (Trazodone HCl) 50 50 Milligram needed for INSOMNIA Refills: 0 MG TABLET Last Taken: 01/26/17 Time: 0300 Quetiapine Fumarate Dose: ORAL, THREE TIMES A DAY Qty: 42 Printed (Quetiapine 25 Milligram NEEDED as needed for Refills: 0 Fumarate) 25 MG ANXIETY/AGITATION/INSOMNI TABLET Last Taken: 01/26/17 Time: 1000 CONTINUE taking these Home Medications: Albuterol Sulfate Dose: Inhale through mouth, (Proair Hfa) 90 MCG 2 Puff EVERY 4-6 HOURS HFA.AER.AD NEEDED as needed for sob Fluticasone-Salmeterol Dose: Inhale through mouth, (Advair 100-50 Diskus) 1 Puff TWICE DAILY for asthma 100 MCG-50 MCG/DOSE BLST.W.DEV STOP taking these DISCONTINUED Home Medications: Paroxetine HCl (Paxil) 10 MG Dose: ORAL, DAILY for anxiety TABLET 1 Tablet Reason Stopped: Pt Decision, not taking [facility] [address] [place] [address] [phone] Multiple Neuroleptics: ([x]) Not Applicable OR Document below three failed attempts at monotherapy, or a plan to taper to monotherapy, or augmentation of Clozapine. () Patient's Diet: Regular Patient's Activity: No restrictions DC Disposition: Patient returning to [facility]. Recommendations: Take medications as prescribed. Follow up with primary care for asthma and elevated triglycerides. Referred To: Post Discharge Referrals Provider Referral Service Date: 01/26/17 Referred To: [AIC] Notes: [facility] [address] [address] Provider Referral Service Date: 02/24/17 Referred To: [facility] Notes: [facility] 02/24/17 @ 2:30pm Copies To: *
--- NOTE | 2017-01-26 15:47 | SOCIAL WORKER PROG NOTE PSYCH ---
Social Work Progress Note Progress Note Patient had family meeting today with this publications writer, Abelino Gardner APRN and patients mother. Patients mother stated that she is aware that patient is upset that he is not receiving the medication he was previously prescribed by his outpatient prescriber. Patient states that he does not feel he needs to be in the hosptial and feels safe returning to [facility]. He denies SI/HI/AH/VH at present. Patients mother is in support of patient discharging the hospital today and returning to [facility] and treatment there. Patient plans to seek his own outpatient prescriber once he returns to [facility]. Patient has appointment with [facility] on 02/24/17 @ 2:30PM for medical purposes.
== END 2017-01-26 16:30 | DRG 756 ==
LOC: ERH 19:16 → ERHI 01-24 09:21 → CP SOUTH 01-24 09:21
PROVIDERS: Emergency Medicine; Nurse Practitioner Psychiatric/Mental Health; ADMIT Psychiatry & Neurology Psychiatry
DX: F41.1 Generalized anxiety disorder (principal); F32.9 Major depressive disorder, single episode, unspecified
CPT/HCPCS: 36415; 80307; G0480; J3490

== ENCOUNTER 2018-02-27 08:16 | Emergency (ER) | payer OTHER ==
[~2018-02-27 08:16] MED LIST changes: +KLONOPIN0.5 M1 PO; +NICOTINE PATCH1 EAC3 TOP; +PROZAC40 M1 PO; +QUETIAPINE FUMA25 M1 PO; +TRAZODONE HCL50 M1 PO
[2018-02-27 08:20] VITALS: BP 134/74
[2018-02-27] MEDS ORDERED: SYMBICORT 16010.2 GM INH (08:23)
[2018-02-27] MEDS ORDERED: ADDERALL XR 3030 MG PO ×2 (08:23→09:10)
--- NOTE | 2018-02-27 08:50 | ED GENERAL ADULT ---
History of Present Illness General Chief Complaint: General Adult Stated Complaint: med refill Source: patient Exam Limitations: no limitations Vital Signs & Intake/Output Vital Signs & Intake/Output Vital Signs Date Time Temp Pulse Resp B/P B/P Pulse O2 O2 Flow FiO2 Mean Ox Delivery Rate 02/27 914 16 94 Room Air 02/28 820 97.1 83 20 134/74 92 Room Air Allergies Coded Allergies: NO KNOWN ALLERGIES (03/05/13) Reconcile Medications Albuterol Sulfate (Proair Hfa) 90 MCG HFA.AER.AD 2 PUF INH Q4-6 PRN PRN asthma Albuterol Sulfate (Proair Hfa) 90 MCG HFA.AER.AD 2 PUF INH Q4-6 PRN PRN Asthma Exacerbation Budesonide/Formoterol Fumarate (Symbicort 160-4.5 Mcg Inhaler) 160 MCG-4.5 MCG/ ACTUATION HFA.AER.AD 2 PUF INH BID ASTHMA (Reported) Budesonide/Formoterol Fumarate (Symbicort 80-4.5 Mcg Inhaler) 80 MCG-4.5 MCG/ ACTUATION HFA.AER.AD 2 PUF INH BID Asthma Clonazepam (Klonopin) 0.5 MG TABLET 1 TAB PO BIDP PRN mental health Clonazepam (Klonopin) 0.5 MG TABLET 1 TAB PO BIDP PRN Anxiety Dextroamphetamine/Amphetamine (Adderall XR 30 MG Capsule) 30 MG CAP.ER.24H 1 CAP PO TID ADHD (Reported) Dextroamphetamine/Amphetamine (Adderall XR 30 MG Capsule) 30 MG CAP.ER.24H 1 CAP PO QAM ADHD Fluoxetine HCl (Prozac) 40 MG CAPSULE 1 CAP PO DAILY mental health Prednisone 50 MG TABLET 1 TAB PO DAILY Asthma Triage Note: PER PT HERE [facility] REFILLS X 3 HAS AN APPT WITH SHIRLENE BALDERRAMA MD ON 03/15/18 NEEDS CLONOPIN 0.5MG BID ADDERALL 30 MG TID ALBUTEROL INHALER WHILE I AM HERE I SHOULD PROBABLY GET A RESP RX TOO Triage Nurses Notes Reviewed? yes HPI: 27 yo M PMH Asthma, ADHD presenting for medication refill. Patient states that he previously was seening Dr. Corcoran for his medications, but Dr. Corcoran left his practice to move and he has run out of his chronic medications including, symbicort (daily use), Albuterol (daily use), klonopin (daily use for panic attacks, last dose 2 days ago), Adderall (daily use). ROS (+) for wheezing, patient has been wheezing intermittently, unsure if his asthma is acting up, denies associated fevers, chills, cough, URI Sx, chest pain or shortness of breath. Patient last had his medications filled in early January in this ED, has not followed up with a [facility] care physician. (Miguel Lee MD) Past History Travel History Traveled to [place] past 21 day No Medical History Any Pertinent Medical History? 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 History of MRSA: No History of VRE: No History of CDIFF: No Surgical History Surgical History: non-contributory, N Psychosocial History Who do you live with Family Services at Home None What is your primary language Swedish Tobacco Use: Current Daily Use Daily Tobacco Use Amount/Type: => 5 Cigarettes daily Family History Family History, If Any: FATHER Anxiety disorder FH: heart disease MOTHER FH: ADHD (attention deficit hyperactivity disorder) MATERNAL GRANDMOTHER Diabetes mellitus FH: asthma MATERNAL GRANDFATHER FH: hepatic cirrhosis PATERNAL GRANDFATHER FH: myocardial infarction Hx Contributory? Yes (Miguel Lee MD) Review of Systems Review of Systems Constitutional: Reports: no symptoms. EENTM: Reports: no symptoms. Respiratory: Reports: see HPI. Cardiovascular: Reports: no symptoms. GI: Reports: no symptoms. Genitourinary: Reports: no symptoms. Musculoskeletal: Reports: no symptoms. Skin: Reports: no symptoms. Neurological/Psychological: Reports: no symptoms. Hematologic/Endocrine: Reports: no symptoms. Immunologic/Allergic: Reports: no symptoms. All Other Systems: Reviewed and Negative (Miguel Lee MD) Physical Exam Physical Exam General Appearance: well developed/nourished, no apparent distress, alert Eyes: Bilateral: PERRL, EOMI. Ears, Nose, Throat: moist mucus membranes Neck: normal inspection, full range of motion, no midline tenderness Respiratory: wheezing Cardiovascular: regular rate/rhythm Gastrointestinal: soft, non-tender Back: normal inspection Neurologic/Psych: awake, alert, oriented x 3 Comments: General: Well appearing, no acute distress Pulmonary: Normal WOB without tachypnea or retractions, Mild diffuse end expiratory wheezes Core Measures ACS in differential dx? No CVA/TIA Diagnosis: No Sepsis Present: No Sepsis Focused Exam Completed? No (Miguel Lee MD) Progress Differential Diagnoses I considered the following diagnoses in my evaluation of the patient: [ Asthma exacerbation, PNA] Plan of Care: Physician MDM: 27 yo M PMH Asthma, ADHD, anxiety presenting for medication. O2 sat 94% with normal WOB, wheezes on pulmonary exam as above. DDx: Asthma exacerbation 2/2 missed maintenance medications, less likely Asthma exacerbation 2/2 URI/Bronchitis, low concern for PNA without fevers or cough. I offered the patient an albuterol treatment and first dose of steroid medication in the ED, which he declined, he states that he would prefer to leave and chicken picker his medications at the pharmacy. I discussed my concern about the O2 saturation of 92% in triage, the patient is unwilling to stay for a CXR or further treatment. I discussed with the patient that chronic psychiatric medcations (clonazepam and adderrall) should be prescribed by a primary care physician who can follow the patients response to treatment, the patient has a list of primary care physicians that was provided to him in triage and he will start calling to make appointments this afternoon. [facility] as stated, I will provide him with a 5 days supply of both medications with the plan for close PMD f/u. Discharged with return precuations. Initial ED EKG: none (Rosa PIERCE,Miguel) Departure Departure Disposition: HOME OR SELF CARE Condition: Stable Clinical Impression Primary Impression: Asthma exacerbation Referrals: Patient Has No Primary Care Dr (PCP/Family) Additional Instructions: Use albuterol inhaler every 4-6 hrs as needed for wheezing. Take prednisone for the next 5 days. Begin taking symbicort again. Follow up with a primary care physician in the next 2-3 days for nursing home refills of clonazepam and adderall. Return to the emergency department for any new, worsening, or concering symptoms. Departure Forms: Customer Survey General Discharge Information Prescriptions: Current Visit Scripts Dextroamphetamine/Amphetamine (Adderall XR 30 MG Capsule) 1 CAP PO QAM #5 CAP Clonazepam (Klonopin) 1 TAB PO BIDP PRN Anxiety #10 TAB Albuterol Sulfate (Proair Hfa) 2 PUF INH Q4-6 PRN PRN Asthma Exacerbation #1 INHAL Budesonide/Formoterol Fumarate (Symbicort 80-4.5 Mcg Inhaler) 2 PUF INH BID #10.2 GM Prednisone 1 TAB PO DAILY #5 TAB (Rosa PIERCE,Miguel) PA/DRYER OPERATOR Co-Sign Statement Statement: ED Attending supervision documentation- [] I saw and evaluated the patient. I have also reviewed all the pertinent lab results and diagnostic results. I agree with the findings and the plan of care as documented in the PA's/DRYER OPERATOR's documentation. [X] I have reviewed the ED Record and agree with the physician's evaluation of this patient [] Additions or exceptions (if any) to the PAs/DRYER OPERATOR's note and plan are summarized below: [] (Peter Funez DO) Critical Care Note Critical Care Note Critical Care Time: non-applicable (Rosa PIERCE,Miguel)
[2018-02-27] MEDS ORDERED: KLONOPIN0.5 M1 PO (09:10)
[2018-02-27] MEDS ORDERED: SYMBICORT 80-10.2 GM INH (09:10)
[2018-02-27] MEDS ORDERED: PREDNISONE50 M1 PO (09:10)
[2018-02-27] MEDS ORDERED: PROAIR HFA8.5 GM INH (09:10)
== END 2018-02-27 09:22 ==
LOC: ERH 08:16
DX: J45.901 Unspecified asthma with (acute) exacerbation (principal); F17.210 Nicotine dependence, cigarettes, uncomplicated
CPT/HCPCS: 99281

== ENCOUNTER 2018-03-27 22:03 | Inpatient (IN) | payer OTHER ==
[~2018-03-27] VITALS: Ht 170.2 cm; Wt 81.6 kg
[~2018-03-27 22:03] MED LIST changes: +PREDNISONE50 M1 PO; +SYMBICORT 16010.2 GM INH; +SYMBICORT 80-10.2 GM INH
--- NOTE | 2018-03-27 23:31 | ED DYSPNEA/ASTHMA COMPLAINT ---
History of Present Illness General Chief Complaint: Dyspnea (COPD, CHF, Other) Stated Complaint: SOB Source: patient Exam Limitations: no limitations Vital Signs & Intake/Output Vital Signs & Intake/Output Vital Signs Date Time Temp Pulse Resp B/P B/P Pulse O2 O2 Flow FiO2 Mean Ox Delivery Rate 03/28 0347 92 Nasal 2.0L Cannula 03/28 0338 98.3 95 20 150/100 91 Room Air 03/28 0319 97.6 73 20 122/60 93 Nasal 2.0L Cannula 03/28 0034 83 22 120/58 92 Nasal 2.0L Cannula 03/27 2247 98.2 82 24 113/59 94 Nasal 4.0L Cannula ED Intake and Output 03/28 0000 03/27 1200 Intake Total Output Total Balance Patient 180 lb Weight Allergies Coded Allergies: No Known Allergies (03/27/18) Reconcile Medications Albuterol Sulfate (Proair Hfa) 90 MCG HFA.AER.AD 2 PUF INH Q4-6 PRN PRN Asthma Exacerbation Budesonide/Formoterol Fumarate (Symbicort 80-4.5 Mcg Inhaler) 80 MCG-4.5 MCG/ ACTUATION HFA.AER.AD 2 PUF INH BID Asthma Clonazepam (Klonopin) 0.5 MG TABLET 1 TAB PO BIDP PRN Anxiety Dextroamphetamine/Amphetamine (Adderall XR 30 MG Capsule) 30 MG CAP.ER.24H 1 CAP PO QAM ADHD Methadone Hydrochloride (Methadone HCl) 10 MG TABLET 90 MG PO DAILY WITHDRAWAL (Reported) Triage Note: PT TO TRIAGE WITH SOB, COUGH AND WHEEZING. PT HAS A HX OF ASTHMA. PT STATES HE HAS BEEN SOB FOR THREE DAYS AND TONIGHT BEING THE WORST. PT WAS SEEN AT [facility] FOR THE SAME AND DID NOT WANT TO BE ADMITTED THERE. 89% ON ARRIVAL, PLACED ON 2L Triage Nurses Notes Reviewed? yes Onset: Gradual Duration: day(s): Timing: recent history Severity: moderate Activities at Onset: none Prior Episodes/Possible Cause: occasional episodes Modifying Factors: Improves With: rest. Worsens With: movement. Associated Symptoms: cough, wheezing HPI: 27 yo gentleman h/o asthma, presents with dyspnea, wheezing, cough productive of sputum that began 3 days ago. He was seen at [facility]. Records obtained reveal 02 sat 88%. He received nebs, decadron 10mg iv x 1 around 9pm. Labs were benign (normal wbc count, trop neg, lytes benign). Cxr suggestive of pneumonia. He states, "they wanted to admit me. I did want to be admitted to [facility]. I had a bad experience in the past." He presents here stating that he wishes to be admitted to the hospital. Past History Travel History Traveled to [place] past 21 day No Medical History Any Pertinent Medical History? 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 History of MRSA: No History of VRE: No History of CDIFF: No Surgical History Surgical History: non-contributory, N Psychosocial History Who do you live with Family Services at Home None What is your primary language Yakut Tobacco Use: Current Daily Use Daily Tobacco Use Amount/Type: => 5 Cigarettes daily ETOH Use: denies use, occasional use Illicit Drug Use: denies illicit drug use Family History Family History, If Any: FATHER Anxiety disorder FH: heart disease MOTHER FH: ADHD (attention deficit hyperactivity disorder) MATERNAL GRANDMOTHER Diabetes mellitus FH: asthma MATERNAL GRANDFATHER FH: hepatic cirrhosis PATERNAL GRANDFATHER FH: myocardial infarction Hx Contributory? No Review of Systems Review of Systems Constitutional: Reports: no symptoms. EENTM: Reports: no symptoms. Respiratory: Reports: no symptoms. Cardiovascular: Reports: no symptoms. GI: Reports: no symptoms. Genitourinary: Reports: no symptoms. Musculoskeletal: Reports: no symptoms. Skin: Reports: no symptoms. Neurological/Psychological: Reports: no symptoms. Hematologic/Endocrine: Reports: no symptoms. Immunologic/Allergic: Reports: no symptoms. All Other Systems: Reviewed and Negative Physical Exam Physical Exam Respiratory: wheezing, Prolonged expiratory phase Comments: Review of Systems - except as otherwise noted in HPI All Other Systems: Reviewed and Negative Physical Exam Physical Exam General Appearance: well developed/nourished, no apparent distress Head: atraumatic, normal appearance Eyes: Bilateral: normal appearance. Ears, Nose, Throat: normal pharynx, normal ENT inspection Neck: normal inspection, supple, full range of motion Respiratory: Bilateral wheezes with prolonged expiratory phase Cardiovascular: regular rate/rhythm Gastrointestinal: normal bowel sounds, soft, non-tender, no organomegaly Back: normal inspection, normal range of motion Extremities: normal inspection, normal capillary refill, normal range of motion, no edema Neurologic/Psych: no motor/sensory deficits, awake, alert, oriented x 3 Skin: intact, normal color, warm/dry Core Measures ACS in differential dx? No CVA/TIA Diagnosis No Sepsis Present: No Sepsis Focused Exam Completed? No Progress Differential Diagnosis: asthma, bronchitis, CHF, COPD, pneumonia Plan of Care: Orders Procedure Date/time Status CBC WITHOUT DIFFERENTIAL 03/29 600 Active BASIC ELECTROLYTES PLUS BUN&CR 03/29 600 Active Heart Healthy Diet 03/28 B Active Weight 03/28 342 Complete Vital Signs 03/28 342 Active Teach/Educate 03/28 342 Active Pain Treatment and Response 03/28 342 Active Nutritional Intake, Monitor 03/28 342 Active Isolation 03/28 342 Active Intake & Output 03/28 342 Active Patient Care Conference 03/28 342 Active Activity/Ambulation 03/28 342 Active URINE DRUGS OF ABUSE 03/28 0245 Active STREP PNEUMO URINARY ANTIGEN 03/28 224 Complete LEGIONELLA URINARY ANTIGEN 03/28 022 Complete TRC EVALUATION (GEN) 03/28 223 Active OXYGEN SETUP (GEN) 03/28 223 Active Pathway - chart 03/28 223 Active House Staff 03/28 223 Active SPECIMEN TO BE OBTAINED 03/28 223 Active Code Status 03/28 223 Active Patient Data 03/28 0119 Active Saline Lock 03/28 0118 Active Misc Message 03/28 0118 Active ED Holding Orders 03/28 0118 Active Admit to inpatient 03/28 0118 Active Vital Signs 03/28 0118 Active Code Status 03/28 0118 Complete TRC EVALUATION (GEN) 03/28 UNK Active VTE Mechanical Prophylaxis 03/28 UNK Active Vital Signs 03/28 UNK Complete Intake & Output 03/28 UNK Active Activity/Ambulation 03/28 UNK Active BLOOD CULTURE 03/27 2356 Active BLOOD CULTURE 03/27 2355 Active Current Medications Sig/Shelia Start time Last Medication Dose Stop Time Status Admin Nicotine 14 MG DAILY 03/29 900 AC (Nicotine Cq) Azithromycin 500 MG 03/29 AC (Zithromax) Sodium Chloride 250 ML (Normal Saline 0.9%) Ceftriaxone Sodium 1,000 MG 0100 06/07 0100 AC (Rocephin) Methadone HCl 90 MG DAILY 03/28 0900 AC (Dolophine) Heparin Sodium 5,000 UNIT Q8 03/28 06 AC (Porcine) Methylprednisolone 40 MG Q8 03/28 06 AC (Solumedrol) Albuterol Sulfate 3 ML Q4P PRN 03/28 0230 AC (Proventil) Clonazepam 0.5 MG BID PRN 03/28 0230 AC (KlonoPIN) 04/04 0229 Sodium Chloride 1,000 ML .Q20H 03/28 0230 AC 03/28 (Normal Saline 0.9%) 0355 Budesonide/ 2 PUF BID 03/28 0226 AC Formoterol Fumarate (SYMBICORT) Methylprednisolone 125 MG ONCE ONE 03/27 234 CAN (Solu Medrol) 03/27 234 Laboratory Tests 03/28/18 0405: Methadone Screen Pending, Barbiturate Screen Pending, Ur Phencyclidine Scrn Pending, Amphetamines Screen Pending, U Benzodiazepines Scrn Pending, Urine Cocaine Screen Pending, Urine Cannabis Screen Pending Microbiology 03/28 0405 URINE ROUT: Legionella Antigen - COMP 03/28 040 URINE ROUT: Streptococcus pneumoniae Antigen (M - COMP 03/28 0120 BLOOD: Blood Culture - RECD CXR Impression: PATIENT: MANOLO ADORNO PRESENT AGE: 27 PATIENT ACCOUNT NO: [id number] : 90 LOCATION: [facility] ORDERING PHYSICIAN: Chino Keith MD SERVICE DATE: 03/27/18 EXAM TYPE: RAD - XRY- PORTABLE CHEST XRAY EXAMINATION: XR PORTABLE CHEST CLINICAL INFORMATION: Dyspnea , wheeze, hypoxia COMPARISON: 11/23/2016 TECHNIQUE: Portable frontal view of the chest was obtained. FINDINGS: Lung volumes are symmetric. There is a patchy and somewhat curvilinear region of opacity at the left lung base, new from prior. The right lung is clear. No evidence of pneumothorax, pleural effusion, or pulmonary edema. The cardiomediastinal contour is unremarkable. No acute osseous findings are seen. IMPRESSION: Patchy and curvilinear left basilar opacity may reflect atelectasis or developing consolidation in the proper clinical setting. Short-term radiographic follow-up may be helpful. DICTATED BY: Rashard Yang MD DATE/TIME DICTATED:03/28/184 STATISTICAL CLERK ADVERTISING:IMANI DATE/TIME TRANSCRIBED:03/28/1843 CONFIDENTIAL, DO NOT COPY WITHOUT APPROPRIATE AUTHORIZATION. <Electronically signed in Other Vendor System> SIGNED BY: Rashard Yang MD 03/28/1848 Initial ED EKG: none Departure Departure Disposition: STILL A PATIENT Condition: Stable Clinical Impression Primary Impression: Asthma exacerbation Secondary Impressions: Pneumonia Referrals: Patient Has No Primary Care Dr (PCP/Family) Departure Forms: Customer Survey General Discharge Information Admission Note [facility] Documentation of Exam: Documentation of any treatments & extenuating circumstances including Concerns Regarding Discharge (functional status, medication knowledge or non-compliance, living conditions, etc.) that warrant an admission rather than observation: Patient had a complete workup at [facility] which included a chest x-ray suggestive of pneumonia, benign lab work including a negative troponin. At [facility] his O2 sat was 88% on room air. Upon presentation to [facility], his O2 sat was also 88% on room air with a prolonged expiratory phase. Patient merits O2 support, IV antibiotics, steroids and O2 support. Critical Care Note Critical Care Note Critical Care Time: non-applicable
[2018-03-28] MEDS ORDERED: METHADONE HCL10 M1 PO (00:36)
--- NOTE | 2018-03-28 00:49 | RADIOLOGY REPORT ---
EXAMINATION: XR PORTABLE CHEST CLINICAL INFORMATION: Dyspnea, wheeze, hypoxia COMPARISON: 11/23/2016 TECHNIQUE: Portable frontal view of the chest was obtained. FINDINGS: Lung volumes are symmetric. There is a patchy and somewhat curvilinear region of opacity at the left lung base, new from prior. The right lung is clear. No evidence of pneumothorax, pleural effusion, or pulmonary edema. The cardiomediastinal contour is unremarkable. No acute osseous findings are seen. IMPRESSION: Patchy and curvilinear left basilar opacity may reflect atelectasis or developing consolidation in the proper clinical setting. Short-term radiographic follow-up may be helpful.
--- NOTE | 2018-03-28 01:50 | History & Physical ---
Airam PIERCE,Noman 03/28/18 0149: General Information and HPI MD Statement: I have seen and personally examined MANOLO YANG and documented this H&P. The patient is a 27 year old M who presented with a patient stated chief complaint of [pneumonia]. Source of Information: patient, old records Exam Limitations: no limitations History of Present Illness: Patient is a 27-year-old male with a PMH significant for pneumonia, asthma, ADHD , bicuspid aortic valve, IV drug abuse, opiate abuse currently on methadone ( follows at [facility]), who presents complaining of a three-day history of worsening productive cough and dyspnea. Patient began having nasal congestion, productive cough with green/yellow discharge sputum, generalized malaise and body aches 3 days prior to presentation. He lives with his mother who he states has bronchitis. He has increased his use of his albuterol inhaler without relief, no significant dyspnea on exertion which has worsened over the past 3 days. He initially presented to [facility] ED, was told that he likely had pneumonia and left to come to [facility]. He denies any recent IV p.o. substance abuse, he is currently on methadone. He continues to smoke approximately 1 pack a day. Patient denies any fever, chills, nausea, vomiting, chest pain. He has never been intubated for asthma but reports being admitted to the ICU one time approximately 5 years ago. 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 Home Who Do You Live With? parent Services at Home: None Primary Language: [place] ETOH Use: denies use Illicit Drug Use: history of heroin and opioid use Functional Ability ADLs Independent: dressing, eating, toileting, bathing. Ambulation: independent IADLs Independent: shopping, housework, finances, food prep, telephone, transportation , medication admin. Review of Systems Review of Systems Constitutional: Reports: malaise. Denies: chills, fever. EENTM: Reports: nasal congestion. Cardiovascular: Denies: chest pain, palpitations, syncope. Respiratory: Reports: cough, short of breath, sputum production. GI: Denies: abdominal pain, nausea, vomiting. Genitourinary: Denies: discharge, dysuria, frequency. Musculoskeletal: Reports: no symptoms. Skin: Reports: no symptoms. Exam & Diagnostic Data Last 24 Hrs of Vital Signs/I&O Vital Signs Date Time Temp Pulse Resp B/P B/P Pulse O2 O2 Flow FiO2 Mean Ox Delivery Rate 03/28 0034 83 22 120/58 92 Nasal 2.0L Cannula 03/27 2247 98.2 82 24 113/59 94 Nasal 4.0L Cannula Intake & Output 03/28 0800 03/28 0000 03/27 1600 Intake Total Output Total Balance Patient 180 lb Weight Physical Exam General Appearance Alert, Oriented X3, Cooperative, No Acute Distress HEENT Atraumatic, PERRLA, EOMI, Mucous Membr. moist/pink Cardiovascular Regular Rate, Normal S1, Normal S2, systolic murmur Lungs diffuse wheezing and rhonchi Abdomen Normal Bowel Sounds, Soft, No Tenderness Neurological Normal Speech, Strength at 5/5 X4 Ext, Normal Tone, Sensation Intact, Cranial Nerves 3-12 NL Extremities No Clubbing, No Cyanosis, No Edema Last 24 Hrs of Labs/Mejia: Microbiology 03/28 0120 BLOOD: Blood Culture - RECD Diagnostic Data CXR Results Lung volumes are symmetric. There is a patchy and somewhat curvilinear region of opacity at the left lung base, new from prior. The right lung is clear. No evidence of pneumothorax, pleural effusion, or pulmonary edema. The cardiomediastinal contour is unremarkable. No acute osseous findings are seen. IMPRESSION: Patchy and curvilinear left basilar opacity may reflect atelectasis or developing consolidation in the proper clinical setting. Short-term radiographic follow-up may be helpful. Assessment/Plan Assessment: Patient is a 27-year-old male with a PMH significant for pneumonia, asthma, ADHD , bicuspid aortic valve, IV drug abuse, opiate abuse currently on methadone ( follows at [facility]), who presents complaining of a three-day history of worsening productive cough and dyspnea. Patient began having nasal congestion, productive cough with green/yellow discharge sputum, generalized malaise and body aches 3 days prior to presentation. Chest x-ray from [place] shows mild infiltrate of the left lingula. Vital signs: T 98.2, P 82, RR 24, BP 113/59, pulse ox 94% on 4 L nasal cannula Labs: WBC 9.8, H/H 12.6/36.9, sodium 135, potassium 4.0, chloride 101, BUN 10, creatinine 0.7, glucose 83, magnesium 1.8 CXR showed mild infiltrate of the left lingula Problem list #Acute hypoxic respiratory failure secondary to community-acquired pneumonia and asthma exacerbation #Chronic medical problems including asthma, ADHD, bicuspid aortic valve Plan -Admit to general medicine floor -TR/nebs -IV ceftriaxone and azithromycin -Smoking cessation counseling -Methadone dose with a PT foundation in a.m. -Continue home medications including inhalers -Wean off of supplemental O2 as tolerated -IV Solu-Medrol 40 mg every 8 Diet: Heart healthy DVT prophylaxis: Subcutaneous heparin, Alps CODE STATUS: Full code As Ranked By This Provider Problem List: 1. Pneumonia 2. Acute respiratory failure with hypoxia 3. Asthma exacerbation Core Measures/Misc (07/09) Acute Coronary Syndrome ACS Diagnosis: No Congestive Heart Failure Congestive Heart Failure Diagnosis No Cerebrovascular Accident CVA/TIA Diagnosis: No VTE (View Protocol) VTE Risk Factors Acute Medical Illness No Mechanical VTE Prophylaxis d/t N/A MechProphylax Ordered No VTE Pharm Prophylaxis d/t NA PharmProphylax ordered Sepsis (View protocol) Sepsis Present: No If YES complete Sepsis Event Note If YES complete Sepsis Event Note Mallory Aragon 03/28/18 0508: Core Measures/Misc (07/09) Sepsis (View protocol) If YES complete Sepsis Event Note If YES complete Sepsis Event Note Resident Review Statement Resident Statement: examined this patient, discussed with senior international tax manager, agreed with senior international tax manager, amended to note Other Findings: Mr Yang is a 27 year past history of ADHD( on Adderal), substance abuse (on methadone for the last 6m at [facility] ) asthma, anxiety, h/o bicuspid Aoritc valve, who presented to the ER with a chief concern of exertional dyspnea , productive cough, wheezing 3 days. He was known to be in his usual state of health until one week ago, when he started using increasing frequency of rescue inhaler up to 5-10 times a day. He reported that he had productive cough with yellow sputum, myalgias, occasional rigors in the last 3 days. Reported to have used approximately his inhaler up to 30 times in the last 24 hours. He was evaluated at [place] ER, and was found to be hypoxemic up to 88%, and received beta agonist treatment, Decadron 10 mg IV. He was advised to be admitted to [facility], but Mr. Yang chose to be evaluated at [facility]. No fever, pleuritic chest pain, palpitations, but reported sick contact. Also reported nasal congestion. Current smoker, [id number] smoking history. Last known to have use any IV drug abuse was 6 months ago. No history of cocaine use. Never been intubated before. History was limited regarding his previous hospital admissions for asthma exacerbations. At the time of admission-temperature 98.2, pulse rate 82, respiration 24, blood pressure 103/59, pulse ox 94% on 4 L-->92% on 2 L. General Exam: AAOx3, mild distress, Skin: No rashes, no breakdown;HEENT: PERRLA, EOMI;Neck: Supple, No JVD; No cervical lymphadenopathy;CVS: Reg Rate, Normal S1, S2, systolic murmur ;Resp: decreased air entry, b/l wheezes w/ rales on the left side ;Abdomen: Soft, No tenderness, Normal Bowel Sounds;Neuro: Normal Speech, Strength 5/5 b/l x 4 extremities, Sensation intact, CN III-XII NL, Reflexes 2+; Extremities: No cyanosis, no pedal edema. Pertinent lab findings: Done [facility] on 03/27/2018 WBC 9.8, hemoglobin 12.6, MCV 81.5 Sodium 135, potassium 4.0, chloride 101, bicarbonate 25, anion gap 9 Renal function-BUN 10, creatinine 0.7 AST 17, ALT 16, alkaline phosphatase 73 Magnesium 1.8 Chest x-ray done on 03/28/2019 revealed patchy and curvilinear left basilar opacity may reflect atelectasis or developing consolidation in the proper clinical setting. Short-term radiographic follow-up may be helpful. Echo on 03/22/2014 revealed Mild concentric left ventricular hypertrophy. Normal left ventricular ejection fraction visually estimated at >65 Bicuspid aortic valve with horizontal orientation. Mildly reduced opening. Mild-to- moderate aortic stenosis. No aortic regurgitation. No evidence of pulmonary hypertension. Problem list: #1 community-acquired pneumonia, Acure hypoxic respiratory failure #2 asthma exacerbation #3 history of ADHD Etiology in this case with typical signs and symptoms of pneumonia w/ radiological signs of subsegmental consolidation is likely bacterial pneumonia. Typical organisms usually considered are strep pneumo, Haemophilus, Klebsiella, Moraxella, staph aureus, which might have exaled to exacerbation of asthma. Other differentials considered bronchitis, CHF, COPD. Plan: # Obtain venous access, and fluid resuscitation as needed. #Supplemental oxygen #electronic device monitor if needed #Inhaled bronchodilators as needed #Follow CBCs with differential, serum chemistry in the am, since he got his blood work not too long ago. If he decompensates, would get blood work surinder. #Check blood cultures, sputum cultures and Gram stain #Check urine antigen test for strep pneumo and legionella #Trend lactate, if pt has sepsis. #Start IV antibiotics-preferably beta lactam+ macrolide. #For the treatment of asthma exacerabation, he was given decadron iv 10mg, which is a high dose for loading w/ steroids. Continue solumedrol for now at 40mg q8. #Change Adderal to po ritalin. Please confirm the doses of Adderal and start equivalent dose of ritalin 60mg; and would start at a lower dose of 40mg in divided doses. Please consult psych, since this is a stimulant, and avoid once daily dosing of ritalin. #Continue Methadone 90 daily. Please confirm the doses of Adderal, Clonazepam from [facility]. Checklist: 1. DVT Ppx-Heparin sc 2. Full code 3. Heart healthy diet. John PIERCE, [facility] 03/28/18 0520: General Information and HPI Allergies/Medications Home Med list Albuterol Sulfate (Proair Hfa) 90 MCG HFA.AER.AD 2 PUF INH Q4-6 PRN PRN Asthma Exacerbation Budesonide/Formoterol Fumarate (Symbicort 80-4.5 Mcg Inhaler) 80 MCG-4.5 MCG/ ACTUATION HFA.AER.AD 2 PUF INH BID Asthma Clonazepam (Klonopin) 0.5 MG TABLET 1 TAB PO BIDP PRN Anxiety Dextroamphetamine/Amphetamine (Adderall XR 30 MG Capsule) 30 MG CAP.ER.24H 1 CAP PO QAM ADHD Fluoxetine HCl 20 MG CAPSULE 1 CAP PO DAILY mental health (Reported) Methadone Hydrochloride (Methadone HCl) 10 MG TABLET 90 MG PO DAILY WITHDRAWAL (Reported) Core Measures/Misc (07/09) Sepsis (View protocol) If YES complete Sepsis Event Note If YES complete Sepsis Event Note Attending MD Review Statement Attending Statement Attending MD Statement: examined this patient, discuss w/resident/PA/CROWNING HAMMER OPERATOR, agreed w/resident/PA/CROWNING HAMMER OPERATOR, reviewed images, amended to note Attending Assessment/Plan: 27 yo M smoker with h/o asthma, ADHD, IV drug use, anxiety, opiate dependence on methadone, was seen at [place] ER 2 hours prior to coming to [facility]. He has been having 3-day h/o productive cough, dyspnea and wheezing. He tried nebs without relief. He was evaluated at [place] with blood work and Xray, was given Decadron and nebs, after [facility] patient absconded/ left AMA as he did not want to get admitted there. Records from [place] reveal his O2 sats were 88%, benign labs and CXR s/o mild infiltrate in left lingula. He reports having some relief with decadron. Sick contact: mother with bronchitis. He does not recall the last time he had an exacerbation with inpatient admission, as per [facility] records this was in Oct 2014. Vitals: afebrile, HR 80's, BP 120/58, sats 88-90% RA --> 94% on 2L. Exam: AAO, in mild respiratory distress, Neck supple, Chest b/l wheezes with reduced air entry. Labs as dictated above. Utox pending. CXR: patchy and curvilinear left basilar opacity may reflect atelectasis or developing consolidation. Assessment and plan: 1. Acute hypoxic respiratory failure 2. Community acquired pneumonia 3. Asthma with exacerbation with possible COPD overlap 4. Smoker 5. Opiate dependence on methadone - Admit to [facility] - [facility] nebs scheduled and PRN - Sputum culture, urine legionella and strep Ag - IV ceftriaxone and azithro - IV solumedrol - Repeat CBC, BEP in AM - Smoking cessation counseling, nicotine patch - Confirm dose of methadone (90 mg)and resume in AM (when you call [facility], please refer to [facility], as his father also gets his methadone from [facility] but a lower dose) - Resume other home meds klonopin, prozac, adderall - Resume symbicort which patient does not seem to be using DVT ppx Lovenox. Full code.
--- NOTE | 2018-03-28 01:52 | Admission Certification ---
Admission Certification Certification Statement - As attending physician, I certify that at the time of - admission, based on clinical presentation, severity of - symptoms, need for further diagnostic testing and - therapeutic interventions, and risk of adverse outcomes - without in-hospital treatment, in my clinical assessment, - this patient requires an acute hospital stay for a minimum - of two nights or longer. I have also considered psychsocial - factors such as support system, advanced age, financial - issues, cognitive issues, and failed out-patient treatments, - past re-admission history, safety of patient, and lack of - compliance as applicable. Specific rationale supporting this admission is: Acute hypoxic respiratory failure, asthma exacerbation, community acquired pneumonia.
[2018-03-28 03:38] VITALS: BP 150/100
[2018-03-28] MEDS ORDERED: FLUOXETINE HCL20 M2 PO (05:11)
[2018-03-28] MEDS ORDERED: PROZAC40 M1 PO (05:11)
[2018-03-28 06:27] VITALS: BP 120/80
[2018-03-28 08:12] LABS: ABSOLUTE BASOPHIL COUNT 0 /CUMM (0.0-0.2); ABSOLUTE EOSINOPHIL COUNT 0 /CUMM (0.0-0.7); ABSOLUTE GRANULOCYTE CT 7.3 /CUMM (1.4-6.5); ABSOLUTE LYMPH COUNT 0.5 /CUMM (1.2-3.4); ABSOLUTE MONOCYTE COUNT 0.2 /CUMM (0.10-0.60); BASOPHIL % 0 % (0.0-2.0); EOSINOPHIL % 0 % (0-5); HEMATOCRIT 36.6 % (42-52); MEAN CORPUSCULAR HGB 27.7 PG (27.0-31.0); MEAN CORPUSCULAR HGB CONC 33.8 G/DL (33.0-37.0); MEAN CORPUSCULAR VOLUME 81.9 FL (80.0-94.0); MEAN PLATELET VOLUME 7.4 FL (7.4-10.4); PLATELET COUNT 305 /CUMM (130-400); RBC DISTRIBUTION WIDTH 14.2 % (11.5-14.5); RED BLOOD CELL CT 4.47 /CUMM (4.70-6.10)
--- NOTE | 2018-03-28 08:25 | Event Note ---
Event Note Event Note: Methadone dose confirmed from [facility] as 90mg daily.
--- NOTE | 2018-03-28 09:05 | RADIOLOGY REPORT ---
EXAMINATION: CHEST 1 VIEW CLINICAL INFORMATION: Shortness of breath. COMPARISON: 03/27/2018. TECHNIQUE: An AP view of the chest is provided. FINDINGS: The cardiac silhouette is not enlarged. The mediastinal and hilar contours are unremarkable. There are neither pleural effusions nor pneumothoraces. There are no consolidations. The osseous structures are unremarkable. IMPRESSION: No evidence for acute disease.
[2018-03-28 09:36] LABS: GRANULOCYTE % 91.4 % (42.2-75.2)
--- NOTE | 2018-03-28 11:22 | PN- Att Addend ---
Attending Addendum Attending Brief Note Patient seen and examined, requiring significant amount of oxygen. Patient currently on 55% Ventimask. Patient is admitted with community acquired pneumonia as well as asthma exacerbation. Vital Signs Date Time Temp Pulse Resp B/P B/P Pulse O2 O2 Flow FiO2 Mean Ox Delivery Rate 03/28 1019 Venti Mask 55% 03/28 0810 91 Venti Mask 55% 03/28 0800 Venti Mask 55% 03/28 0627 98.7 77 20 120/80 92 Nasal 2.0L Cannula 03/28 0347 92 Nasal 2.0L Cannula 03/28 0338 98.3 95 20 150/100 91 Room Air 03/28 0319 97.6 73 20 122/60 93 Nasal 2.0L Cannula 03/28 0034 83 22 120/58 92 Nasal 2.0L Cannula 03/27 2247 98.2 82 24 113/59 94 Nasal 4.0L Cannula on exam; aox3, mild distress using accessory muscles cv; s1,s2, rrr resp; b/l diffuse exp wheeze. abd; soft, nt, bs+ ext; no edema Laboratory Tests 03/28 03/28 0905 0640 Blood Gas pH (7.35 - 7.45 PH) 7.43 pCO2 (35 - 45 TORR) 34 L pO2 (80 - 100 TORR) 63 L HCO3 (21 - 28 MEQ/L) 22 ABG O2 Sat (Measured) (>96.0 %) 90.0 L P-50 (Temp Corrected) N Carboxyhemoglobin (1.5 - 5.0 %) 1.1 L O2 Concentration % 55% Temperature (97.0 - 100.0 FARH) 98.7 O2 Delivery Method VM Chemistry Sodium (137 - 145 mmol/L) 141 Potassium (3.5 - 5.1 mmol/L) 4.7 Chloride (98 - 107 mmol/L) 105 Carbon Dioxide (22 - 30 mmol/L) 24 Anion Gap (5 - 16) 12 BUN (9 - 20 mg/dL) 14 Creatinine (0.7 - 1.2 mg/dL) 0.7 Estimated GFR (>60 ml/min) > 60 BUN/Creatinine Ratio (7 - 25 %) 20.0 Hematology CBC w Diff NO MAN DIFF REQ WBC (4.8 - 10.8 /CUMM) 8.0 RBC (4.70 - 6.10 /CUMM) 4.47 L Hgb (14.0 - 18.0 G/DL) 12.4 L Hct (42 - 52 %) 36.6 L MCV (80.0 - 94.0 FL) 81.9 MCH (27.0 - 31.0 PG) 27.7 MCHC (33.0 - 37.0 G/DL) 33.8 RDW (11.5 - 14.5 %) 14.2 Plt Count (130 - 400 /CUMM) 305 MPV (7.4 - 10.4 FL) 7.4 Gran % (42.2 - 75.2 %) 91.4 H Lymphocytes % (20.5 - 51.1 %) 6.5 L Monocytes % (1.7 - 9.3 %) 2.1 Eosinophils % (0 - 5 %) 0 Basophils % (0.0 - 2.0 %) 0 Absolute Granulocytes (1.4 - 6.5 /CUMM) 7.3 H Absolute Lymphocytes (1.2 - 3.4 /CUMM) 0.5 L Absolute Monocytes (0.10 - 0.60 /CUMM) 0.2 Absolute Eosinophils (0.0 - 0.7 /CUMM) 0 Absolute Basophils (0.0 - 0.2 /CUMM) 0 Miscellaneous Phlebotomy Draw Site RIGHT RADIAL 03/28 0405 Toxicology Urine Opiates Screen (>2000 NG/ML) < 100 Methadone Screen (>300 NG/ML) > 735 H Barbiturate Screen (>200 NG/ML) < 60 Ur Phencyclidine Scrn (>25 NG/ML) < 6.00 Amphetamines Screen (>1000 NG/ML) 665 U Benzodiazepines Scrn (>200 NG/ML) < 85 Urine Cocaine Screen (>300 NG/ML) < 50 Urine Cannabis Screen (>50 NG/ML) < 5.00 A/P; 27 y/o M with pmh sig for pneumonia, asthma, ADHD, bicuspid aortic valve, IV drug abuse, opiate abuse currently on methadone admitted with ac resp failure , community acquired pna and acute asthma excacerbation. Patient is significantly hypoxic and his oxygen requirement has worsened. Utox only positive for methadone. Will obtain a chest CT to rule out pulmonary embolism. Repeat chest x-ray which was done this morning, does not show evidence of infiltrate on the left side which was seen yesterday. Patient currently getting treated with antibiotics. He is afebrile and his white count normal. If his cultures remain negative then will consider stopping the antibiotics. Patient currently on IV steroids and TRC nebs. Agree with treating with magnesium for asthma exacerbation. If oxygen requirement does not improve or any significant finding on a CAT scan then will consider getting a pulmonology consult. DVT px;hep sq
[2018-03-28 14:10] VITALS: BP 160/78
--- NOTE | 2018-03-28 14:34 | CT SCAN REPORT ---
EXAMINATION: CT PULMONARY EMBOLISM STUDY CLINICAL INFORMATION: Shortness of breath. Hypoxia. Respiratory failure. COMPARISON: Same day chest radiograph. Chest CT from 03/21/2014. TECHNIQUE: Contiguous helical images of the chest were obtained following the administration of IV contrast. Multiplanar reconstructions were performed. MIPS were obtained and reviewed. DLP: 482 mGy-cm. CONTRAST: 94 mL of Optiray 320 were administered without incident. FINDINGS: The heart is of normal size. There is no pericardial effusion. The great vessels are unremarkable. Specifically, there is no pulmonary arterial filling defect. There is no CT evidence for pulmonary embolism. There are no chest wall masses. Review of lung windows demonstrates that there are neither pleural effusions nor pneumothoraces. Throughout both lungs, there is patchy multifocal groundglass opacification. There is inferior left upper lobe and medial segment right middle lobe atelectasis. Limited evaluation of the upper abdomen demonstrates that the liver is of normal size and attenuation without focal lesions. Normal adrenal glands are identified. IMPRESSION: No CT evidence for pulmonary embolism. Nonspecific patchy multifocal groundglass opacification. Consider infectious and inflammatory processes. Recommendation is for a followup chest series to be obtained following treatment and/or resolution of symptoms to assure resolution of this appearance.
[2018-03-28 18:35] VITALS: BP 130/72
[2018-03-28 21:28] VITALS: BP 132/72
[2018-03-29 06:35] VITALS: BP 130/80
--- NOTE | 2018-03-29 07:13 | PN- Housestaff ---
Alva PIERCE,[facility] 03/29/18 0713: Subjective Follow-up For: Pneumonia Asthma Exacerbation Subjective: Patient was seen and examined this morning. States his breathing is improved this morning. Offers no complaints. Review of Systems Constitutional: Reports: no symptoms. Objective Last 24 Hrs of Vital Signs/I&O Vital Signs Date Time Temp Pulse Resp B/P B/P Pulse O2 O2 Flow FiO2 Mean Ox Delivery Rate 03/29 0824 94 Nasal 50% Cannula 03/29 0635 98.7 82 20 130/80 93 Nasal Cannula 03/29 0625 93 Nasal 55% Cannula 03/29 0426 94 Nasal 55% Cannula 03/29 0025 93 Nasal 55% Cannula 03/29 0000 55% 03/28 2211 91 Nasal 55% Cannula 03/28 2128 99.7 85 25 132/72 91 Nasal Cannula 03/28 2040 85 Venti Mask 55% 03/28 1914 88 Nasal 50% Cannula 03/28 1835 99.0 90 22 130/72 88 Nasal 50% Cannula 03/28 1605 86 Venti Mask 55% 03/28 1600 90 Nasal 50% Cannula 03/28 1410 98.4 96 20 160/78 91 Venti Mask 06 1019 Venti Mask 55% Intake & Output 03/29 1600 06/07 0800 06/07 0000 Intake Total 550 300 Output Total 1350 Balance -800 300 Intake, IV 300 200 Intake, Oral 250 100 Output, Urine 1350 Physical Exam General Appearance: Alert, Oriented X3, Cooperative, Mild Distress Skin: No Rashes, No Breakdown Skin Temp/Moisture Exam: Warm/Dry Sepsis Skin Exam (color): Normal for Ethnicity HEENT: Atraumatic Cardiovascular: Normal S1, Normal S2, No Murmurs Lungs: b/l diffuse rhonchi and wheezing Abdomen: Soft, No Tenderness Neurological: Normal Speech Extremities: No Edema Last 24 Hrs of Lab/Mejia Results Last 24 Hrs of Labs/Mics: Laboratory Tests 03/29/18 0657: Anion Gap 13, Estimated GFR > 60, BUN/Creatinine Ratio 20.0, CBC w Diff Pending, WBC Pending, RBC Pending, Hgb Pending, Hct Pending, MCV Pending, MCH Pending, MCHC Pending, RDW Pending, Plt Count Pending, MPV Pending 03/28/18 0905: pH 7.43, pCO2 34 L, pO2 63 L, HCO3 22, ABG O2 Sat (Measured) 90.0 L, P-50 ( Temp Corrected) N, Carboxyhemoglobin 1.1 L, O2 Concentration % 55%, Temperature 98.7, O2 Delivery Method VM, Phlebotomy Draw Site RIGHT RADIAL Microbiology 03/28 2230 LOWER RESP: Respiratory Culture - CAN Cancelled: NUMBER OF SQUAMOUS CELLS INDICATES POOR QUALITY SPECIMEN 03/28 2230 LOWER RESP: Gram Stain - CAN Cancelled: NUMBER OF SQUAMOUS CELLS INDICATES POOR QUALITY SPECIMEN Assessment/Plan Assessment: 27-year-old male with a PMH significant for pneumonia, asthma, ADHD, bicuspid aortic valve, IV drug abuse, opiate use currently on methadone (follows at [facility]), who presented to ED complaining of a three-day history of worsening productive cough and dyspnea. Assessment: 1. Acute Hypoxic Respiratory Failure 2. Pneumonia 3. Asthma Exacerbation 4. History of Opiate use now on Methadone Plan: * Continue supplemental oxygen to maintain target sats >92%. Currently on high flow at 55%. Will wean off as tolerated. * TRC/Nebs as needed. * Continue IV SoluMedrol 40mg q6. * CTA chest yesterday showed patchy multifocal groundglass opacification suggestive of pneumonia * Continue IV Ceftriaxone and Azithromycin * His LDH is mildy elevated to 771 * HIV - pending. * Continue methadone 90mg and and increase Clonzapam 0.5mg TID prn for anxiety. * Nicotine patch 21mg. * Diet: Regular * DVT Prophylaxis: SC Lovenox * Code: Full Code Problem List: 1. Asthma exacerbation Pain Ratin Pain Location: none Pain Goal: Remain pain free Pain Plan: none Tomorrow's Labs & Rationales: ARNOLD Santos MD,Elvie 03/29/18 1047: Attending MD Review Statement Attending Statement Attending MD Statement: examined this patient, discuss w/resident/PA/BSA/AML COMPLIANCE OFFICER, agreed w/resident/PA/BSA/AML COMPLIANCE OFFICER, reviewed EMR data (avail), discussed with nursing, discussed with case mgmt, reviewed images, amended to note Attending Assessment/Plan: Patient seen and examined, feels slightly better in terms of breathing. Requiring high flow oxygen. Feels anxious and wants to increase the klonapin. Vital Signs Date Time Temp Pulse Resp B/P B/P Pulse O2 O2 Flow FiO2 Mean Ox Delivery Rate 06/07 0824 94 Nasal 50% Cannula 06/07 0635 98.7 82 20 130/80 93 Nasal Cannula 07 0625 93 Nasal 55% Cannula 03/29 0426 94 Nasal 55% Cannula 03/29 0025 93 Nasal 55% Cannula 03/29 0000 55% 03/28 2211 91 Nasal 55% Cannula 03/28 2128 99.7 85 25 132/72 91 Nasal Cannula 03/28 2040 85 Venti Mask 55% 03/28 1914 88 Nasal 50% Cannula 03/28 1835 99.0 90 22 130/72 88 Nasal 50% Cannula 03/28 1605 86 Venti Mask 55% 03/28 1600 90 Nasal 50% Cannula 03/28 1410 98.4 96 20 160/78 91 Venti Mask On exam; aox3, nad. cv; s1, s2, rrr resp; + exp wheeze b/l abd; soft, nt, bs+ ext; no edema Laboratory Tests 03/29 657 Chemistry Sodium (137 - 145 mmol/L) 141 Potassium (3.5 - 5.1 mmol/L) 4.5 Chloride (98 - 107 mmol/L) 101 Carbon Dioxide (22 - 30 mmol/L) 27 Anion Gap (5 - 16) 13 BUN (9 - 20 mg/dL) 12 Creatinine (0.7 - 1.2 mg/dL) 0.6 L Estimated GFR (>60 ml/min) > 60 BUN/Creatinine Ratio (7 - 25 %) 20.0 Lactate Dehydrogenase (313 - 618 U/L) Pending Hematology CBC w Diff MAN DIFF ORDERED WBC (4.8 - 10.8 /CUMM) 16.6 H RBC (4.70 - 6.10 /CUMM) 4.12 L Hgb (14.0 - 18.0 G/DL) 11.5 L Hct (42 - 52 %) 33.8 L MCV (80.0 - 94.0 FL) 82.2 MCH (27.0 - 31.0 PG) 28.0 MCHC (33.0 - 37.0 G/DL) 34.1 RDW (11.5 - 14.5 %) 14.2 Plt Count (130 - 400 /CUMM) 269 MPV (7.4 - 10.4 FL) 7.7 Gran % (42.2 - 75.2 %) 95.2 H Lymphocytes % (20.5 - 51.1 %) 2.0 L Monocytes % (1.7 - 9.3 %) 2.8 Eosinophils % (0 - 5 %) 0 Basophils % (0.0 - 2.0 %) 0 Absolute Granulocytes (1.4 - 6.5 /CUMM) 15.8 H Segmented Neutrophils (42.2 - 75.2 %) 92 H Band Neutrophils (0.0 - 5.0 %) 4 Absolute Lymphocytes (1.2 - 3.4 /CUMM) 0.3 L Lymphocytes (20.5 - 51.1 %) 3 L Absolute Monocytes (0.10 - 0.60 /CUMM) 0.5 Eosinophils (0 - 5.0 %) 1 Absolute Eosinophils (0.0 - 0.7 /CUMM) 0 Absolute Basophils (0.0 - 0.2 /CUMM) 0 Platelet Estimate (ADEQUATE) ADEQUATE Anisocytosis 1+ Serology HIV 1&2 Ab Western Blot (NONREACTIVE) Pending A/P; 27 y/o M with pmh sig for pneumonia, asthma, ADHD, bicuspid aortic valve, IV drug abuse, opiate abuse currently on methadone admitted with ac resp failure , community acquired pna and acute asthma excacerbation. Remains significantly hypoxic. Appreciate pulmonology input. Patient remains on high flow oxygen. He remains on IV steroids and IV antibiotics. Urine antigens remain negative. Will check sputum cx. Please follow further pulmonary recommendations. Will check LDH as well as HIV antibody. Will increase the Klonapin to TID. Continue methadone. TRC nebs and the rest of the mx. DVT px; Hep sq.
[2018-03-29 07:58] LABS: ABSOLUTE BASOPHIL COUNT 0 /CUMM (0.0-0.2); ABSOLUTE EOSINOPHIL COUNT 0 /CUMM (0.0-0.7); ABSOLUTE LYMPH COUNT 0.3 /CUMM (1.2-3.4); ABSOLUTE MONOCYTE COUNT 0.5 /CUMM (0.10-0.60); BASOPHIL % 0 % (0.0-2.0); EOSINOPHIL % 0 % (0-5); MEAN CORPUSCULAR VOLUME 82.2 FL (80.0-94.0)
[2018-03-29 08:28] LABS: ABSOLUTE GRANULOCYTE CT 15.8 /CUMM (1.4-6.5); GRANULOCYTE % 95.2 % (42.2-75.2); HEMATOCRIT 33.8 % (42-52); MEAN CORPUSCULAR HGB CONC 34.1 G/DL (33.0-37.0); MEAN PLATELET VOLUME 7.7 FL (7.4-10.4); PLATELET COUNT 269 /CUMM (130-400); RBC DISTRIBUTION WIDTH 14.2 % (11.5-14.5); RED BLOOD CELL CT 4.12 /CUMM (4.70-6.10)
[2018-03-29 08:44] LABS: WHITE BLOOD CELL COUNT 16.6 /CUMM (4.8-10.8)
--- NOTE | 2018-03-29 08:47 | Cons- Pulmonary ---
General Information and HPI Consulting Request Date of Consult: 03/29/18 Requested By: Ronald Reason for Consult: Acute hypoxic restrictive failure History of Present Illness: Patient is 27-year-old history of intravenous drug abuse formally her wound asthma actively smoking admitted with acute hypoxic respiratory failure presenting with increasing cough shortness of breath wheezing and sputum production. Patient last used heroin 6 months ago and is on chronic methadone. Continue to smoke 1 pack per day. history of asthma and admitted for acute hypoxic respiratory failure in the past patient describes discolored sputum. CTA negative for PE but shows multifocal pulmonary infiltrates. Allergies/Medications Allergies: Coded Allergies: No Known Allergies (03/27/18) Home Med List: Albuterol Sulfate (Proair Hfa) 90 MCG HFA.AER.AD 2 PUF INH Q4-6 PRN PRN Asthma Exacerbation Budesonide/Formoterol Fumarate (Symbicort 80-4.5 Mcg Inhaler) 80 MCG-4.5 MCG/ ACTUATION HFA.AER.AD 2 PUF INH BID Asthma Clonazepam (Klonopin) 0.5 MG TABLET 1 TAB PO BIDP PRN Anxiety Dextroamphetamine/Amphetamine (Adderall XR 30 MG Capsule) 30 MG CAP.ER.24H 1 CAP PO QAM ADHD Fluoxetine HCl 20 MG CAPSULE 1 CAP PO DAILY mental health (Reported) Methadone Hydrochloride (Methadone HCl) 10 MG TABLET 90 MG PO DAILY WITHDRAWAL (Reported) Review of Systems Review of Systems Constitutional: Denies: chills, fever. Cardiovascular: Denies: chest pain, edema. Respiratory: Reports: cough, short of breath, sputum production, wheezing. Denies: hemoptysis. GI: Denies: abdominal pain, diarrhea, melena. 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 Home Who Do You Live With? parent Services at Home: None Primary Language: [place] Smoking Status: Current Everyday Smoker ETOH Use: denies use Illicit Drug Use: history of heroin and opioid use Functional Ability ADLs Independent: dressing, eating, toileting, bathing. Ambulation: independent IADLs Independent: shopping, housework, finances, food prep, telephone, transportation , medication admin. Exam & Diagnostic Data Last 24 Hrs of Vital Signs/I&O Vital Signs Date Time Temp Pulse Resp B/P B/P Pulse O2 O2 Flow FiO2 Mean Ox Delivery Rate 03/29 0824 94 Nasal 50% Cannula 03/29 0635 98.7 82 20 130/80 93 Nasal Cannula 03/29 0625 93 Nasal 55% Cannula 03/29 0426 94 Nasal 55% Cannula 03/29 0025 93 Nasal 55% Cannula 03/29 0000 55% 03/28 2211 91 Nasal 55% Cannula 03/28 2128 99.7 85 25 132/72 91 Nasal Cannula 03/28 2040 85 Venti Mask 55% 03/28 1914 88 Nasal 50% Cannula 03/28 1835 99.0 90 22 130/72 88 Nasal 50% Cannula 03/28 1605 86 Venti Mask 55% 03/28 1600 90 Nasal 50% Cannula 03/28 1410 98.4 96 20 160/78 91 Venti Mask 03/28 1019 Venti Mask 55% Intake & Output 03/29 1600 06/07 0800 06/ 0000 Intake Total 550 300 Output Total 1350 Balance -800 300 Intake, IV 300 200 Intake, Oral 250 100 Output, Urine 1350 Oxygen saturation 50% 94% HEENT exam shows no adenopathy exam for chest shows diffuse inspiratory extremity wheezing cardiac exam shows regular S1 and S2 soft systolic ejection murmur abdomen is soft nontender there is no edema Last 48 Hrs of Labs/Mejia: Laboratory Tests 03/29/18 0657: Anion Gap 13, Estimated GFR > 60, BUN/Creatinine Ratio 20.0, CBC w Diff Pending, WBC Pending, RBC Pending, Hgb Pending, Hct Pending, MCV Pending, MCH Pending, MCHC Pending, RDW Pending, Plt Count Pending, MPV Pending, Gran % Pending, Lymphocytes % Pending, Monocytes % Pending, Eosinophils % Pending, Basophils % Pending, Absolute Granulocytes Pending, Absolute Lymphocytes Pending, Absolute Monocytes Pending, Absolute Eosinophils Pending, Absolute Basophils Pending 03/28/18 0905: pH 7.43, pCO2 34 L, pO2 63 L, HCO3 22, ABG O2 Sat (Measured) 90.0 L, P-50 ( Temp Corrected) N, Carboxyhemoglobin 1.1 L, O2 Concentration % 55%, Temperature 98.7, O2 Delivery Method VM, Phlebotomy Draw Site RIGHT RADIAL 03/28/18 0640: Anion Gap 12, Estimated GFR > 60, BUN/Creatinine Ratio 20.0, CBC w Diff NO MAN DIFF REQ, RBC 4.47 L, MCV 81.9, MCH 27.7, MCHC 33.8, RDW 14.2, MPV 7.4, Gran % 91.4 H, Lymphocytes % 6.5 L, Monocytes % 2.1, Eosinophils % 0, Basophils % 0, Absolute Granulocytes 7.3 H, Absolute Lymphocytes 0.5 L, Absolute Monocytes 0.2, Absolute Eosinophils 0, Absolute Basophils 0 03/28/18 0405: Urine Opiates Screen < 100, Methadone Screen > 735 H, Barbiturate Screen < 60, Ur Phencyclidine Scrn < 6.00, Amphetamines Screen 665, U Benzodiazepines Scrn < 85, Urine Cocaine Screen < 50, Urine Cannabis Screen < 5.00 Microbiology 03/28 405 URINE ROUT: Legionella Antigen - COMP 03/28 405 URINE ROUT: Streptococcus pneumoniae Antigen (M - COMP Assessment/Plan Impression/Plan: 27-year-old with history of drug abuse opiate dependence actively smoking asthma admitted with acute hypoxic respiratory failure and probable community-acquired pneumonia. Recommendations: Obtain serum LDH. Obtain HIV status. Continue IV steroids nebs antibiotics and Taper FiO2 his saturations allow. Aggressive pulmonary toilet. Culture sputum Consult Acknowledgment - Thank you for your consult request.
--- NOTE | 2018-03-29 16:45 | Cons- Infect Disease ---
General Information and HPI Consulting Request Date of Consult: 03/29/18 Requested By: Elvie Santos MD Reason for Consult: Pneumonia Source of Information: patient, old records History of Present Illness: This is a 27-year-old man with a history of asthma, recurrent pneumonia, ADHD, bicuspid aortic valve and polysubstance/IV drug abuse, most recently 6 months prior to admission and maintained on methadone, admitted on March 27 with a three day history of shortness of breath, wheezing, productive cough and nasal congestion, with no fevers or chills, not responsive to increased use of his inhalers and after having been seen in the [facility] emergency room, where he was given steroids and left AMA. On admission he was afebrile. O2 sat was 89- 90% on room air. Laboratory data revealed a white blood cell count of 8000, BUN /creatinine 14 and 0.7. Urine tox screen was positive for methadone. Chest x- ray revealed a patchy left basilar opacity. CTA of the chest revealed nonspecific patchy multifocal groundglass opacification. He was begun on Ceftriaxone and Azithromycin as well as Solumedrol. He has been afebrile (on steroids) since admission. He has continued to require a significant amount of oxygen but he does note subjective improvement since admission. Allergies/Medications Allergies: Coded Allergies: No Known Allergies (03/27/18) Home Med List: Albuterol Sulfate (Proair Hfa) 90 MCG HFA.AER.AD 2 PUF INH Q4-6 PRN PRN Asthma Exacerbation Budesonide/Formoterol Fumarate (Symbicort 80-4.5 Mcg Inhaler) 80 MCG-4.5 MCG/ ACTUATION HFA.AER.AD 2 PUF INH BID Asthma Clonazepam (Klonopin) 0.5 MG TABLET 1 TAB PO BIDP PRN Anxiety Dextroamphetamine/Amphetamine (Adderall XR 30 MG Capsule) 30 MG CAP.ER.24H 1 CAP PO QAM ADHD Fluoxetine HCl 20 MG CAPSULE 1 CAP PO DAILY mental health (Reported) Methadone Hydrochloride (Methadone HCl) 10 MG TABLET 90 MG PO DAILY WITHDRAWAL (Reported) Past History Travel History Traveled to [place] past 21 day No Medical History Blood Transfusion Hx: No EENT: NONE Cardiovascular: bicuspid aortic valve Respiratory: asthma, pneumonia Gastrointestinal: NONE Hepatic: NONE Renal: NONE Musculoskeletal: NONE Psychiatric: anxiety, ADHD Endocrine: NONE Blood Disorders: NONE Cancer(s): NONE 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 Home Who Do You Live With? parent Services at Home: None Primary Language: Taiwanese Smoking Status: Current Everyday Smoker ETOH Use: denies use Illicit Drug Use: history of heroin and opioid use Functional Ability ADLs Independent: dressing, eating, toileting, bathing. Ambulation: independent IADLs Independent: shopping, housework, finances, food prep, telephone, transportation , medication admin. Review of Systems Review of Systems All Other Systems: Reviewed and Negative Exam & Diagnostic Data Last 24 Hrs of Vital Signs/I&O Vital Signs Date Time Temp Pulse Resp B/P B/P Pulse O2 O2 Flow FiO2 Mean Ox Delivery Rate 03/29 1631 97 Venti Mask 55% 03/29 1426 97.7 82 22 99 Venti Mask 80% 03/29 0824 94 Nasal 50% Cannula 03/29 0800 92 Nasal 55% Cannula 03/29 0635 98.7 82 20 130/80 93 Nasal Cannula 03/29 0625 93 Nasal 55% Cannula 03/29 0426 94 Nasal 55% Cannula 03/29 0025 93 Nasal 55% Cannula / 0000 55% 03/28 2211 91 Nasal 55% Cannula 03/28 2128 99.7 85 25 132/72 91 Nasal Cannula 03/28 2040 85 Venti Mask 55% 03/28 1914 88 Nasal 50% Cannula 03/28 1835 99.0 90 22 130/72 88 Nasal 50% Cannula Intake & Output /07 1600 06/07 0800 06/07 0000 Intake Total 720 550 300 Output Total 600 1350 Balance 120 -800 300 Intake, IV 300 200 Intake, Oral 720 250 100 Number 1 Bowel Movements Output, Urine 600 1350 Physical Exam Other Physical Findings: He is awake and alert in moderate respiratory distress on an 80% Ventimask. He is afebrile on steroids. Skin reveals no rash. HEENT exam is negative. Neck is supple with no adenopathy. Lungs diffuse wheezes and rhonchi. Heart regular rhythm with no murmur. Abdomen is soft, nontender with positive bowel sounds. Back no CVA tenderness. Extremities no cyanosis, clubbing or edema. Neuro is without focality. Last 24 Hours of Lab Results: Laboratory Tests 03/29 0657 Chemistry Sodium (137 - 145 mmol/L) 141 Potassium (3.5 - 5.1 mmol/L) 4.5 Chloride (98 - 107 mmol/L) 101 Carbon Dioxide (22 - 30 mmol/L) 27 Anion Gap (5 - 16) 13 BUN (9 - 20 mg/dL) 12 Creatinine (0.7 - 1.2 mg/dL) 0.6 L Estimated GFR (>60 ml/min) > 60 BUN/Creatinine Ratio (7 - 25 %) 20.0 Lactate Dehydrogenase (313 - 618 U/L) 771 H Hematology CBC w Diff MAN DIFF ORDERED WBC (4.8 - 10.8 /CUMM) 16.6 H RBC (4.70 - 6.10 /CUMM) 4.12 L Hgb (14.0 - 18.0 G/DL) 11.5 L Hct (42 - 52 %) 33.8 L MCV (80.0 - 94.0 FL) 82.2 MCH (27.0 - 31.0 PG) 28.0 MCHC (33.0 - 37.0 G/DL) 34.1 RDW (11.5 - 14.5 %) 14.2 Plt Count (130 - 400 /CUMM) 269 MPV (7.4 - 10.4 FL) 7.7 Gran % (42.2 - 75.2 %) 95.2 H Lymphocytes % (20.5 - 51.1 %) 2.0 L Monocytes % (1.7 - 9.3 %) 2.8 Eosinophils % (0 - 5 %) 0 Basophils % (0.0 - 2.0 %) 0 Absolute Granulocytes (1.4 - 6.5 /CUMM) 15.8 H Segmented Neutrophils (42.2 - 75.2 %) 92 H Band Neutrophils (0.0 - 5.0 %) 4 Absolute Lymphocytes (1.2 - 3.4 /CUMM) 0.3 L Lymphocytes (20.5 - 51.1 %) 3 L Absolute Monocytes (0.10 - 0.60 /CUMM) 0.5 Eosinophils (0 - 5.0 %) 1 Absolute Eosinophils (0.0 - 0.7 /CUMM) 0 Absolute Basophils (0.0 - 0.2 /CUMM) 0 Platelet Estimate (ADEQUATE) ADEQUATE Anisocytosis 1+ Serology HIV 1&2 Ab Western Blot (NONREACTIVE) NONREACTIVE Last 24 Hours of Mejia Results: Blood culture March 27 negative Blood culture March 28 negative Urine strep pneumo antigen and Legionella antigen March 28 negative Sputum culture March 29 pending, with gram stain revealing moderate white blood cells and budding yeast Diagnostic Data Recent Imaging Findings: Chest x-ray March 27 reveals a patchy left basilar opacity CTA of the chest March 28 reveals nonspecific patchy multifocal groundglass opacification Chest x-ray March 28 negative Assessment/Plan Assessment/Plan Impression: This is a 27-year-old man with a history of asthma, recurrent pneumonia, and polysubstance/IV drug abuse, most recently 6 months prior to admission and maintained on methadone, admitted on March 27 with a three day history of shortness of breath, wheezing, productive cough and nasal congestion, found to be afebrile, hypoxic with a normal white blood cell count and with a CTA of the chest revealeing nonspecific patchy multifocal groundglass opacification. His clinical picture is most consistent with an exacerbation of asthma. The significance of the patchy multifocal groundglass opacification on CT scan is unclear and could represent pneumonia, though he does not have any lobar consolidation and he was afebrile with a normal white blood cell count on admission. Of note his HIV is negative, making an opportunistic infection unlikely. His white blood cell count is elevated today, likely secondary to steroids. A sputum culture was obtained today and he can be continued on antibiotics pending results of this culture. Suggestion: 1. Follow-up sputum culture 2. Further management with regard to steroids per Pulmonary 3. Continue Ceftriaxone and Azithromycin pending above Consult Acknowledgment - Thank you for your consult request.
[2018-03-29 22:19] VITALS: BP 140/84
[2018-03-30 06:34] VITALS: BP 140/90
--- NOTE | 2018-03-30 07:17 | PN- Housestaff ---
lAva PIERCE,[facility] 03/30/18 0717: Subjective Follow-up For: acute hypoxic respiratory failure pneumonia asthma exacerbation Subjective: Patient seen and examined. He feels okay, still experiencing significant shortness of breath. Offers no complaints at this time. Review of Systems Constitutional: Reports: no symptoms. Objective Last 24 Hrs of Vital Signs/I&O Vital Signs Date Time Temp Pulse Resp B/P B/P Pulse O2 O2 Flow FiO2 Mean Ox Delivery Rate 03/30 0634 97.8 68 20 140/90 98 Venti Mask 03/30 0009 92 Venti Mask 55% 03/30 0000 94 Venti Mask 55% 03/29 2219 98.5 91 20 140/84 94 Venti Mask 55% 03/29 1631 97 Venti Mask 55% 03/29 1426 97.7 82 22 99 Venti Mask 80% Intake & Output 03/30 1600 03/30 0800 03/30 0000 Intake Total 1740 Output Total 1600 Balance 140 Intake, IV 300 Intake, Oral 1440 Output, Urine 1600 Physical Exam General Appearance: Alert, Oriented X3, Cooperative, Mild Distress Skin: No Rashes, No Breakdown Skin Temp/Moisture Exam: Warm/Dry Sepsis Skin Exam (color): Normal for Ethnicity HEENT: Atraumatic Cardiovascular: Normal S1, Normal S2, No Murmurs Lungs: diffuse wheezing and rhonchi, improved from yesterday Abdomen: Soft, No Tenderness Neurological: Normal Speech Extremities: No Edema Last 24 Hrs of Lab/Mejia Results Last 24 Hrs of Labs/Mics: Laboratory Tests 03/30/18 0630: CBC w Diff Pending, WBC Pending, RBC Pending, Hgb Pending, Hct Pending, MCV Pending, MCH Pending, MCHC Pending, RDW Pending, Plt Count Pending, MPV Pending, Gran % Pending, Lymphocytes % Pending, Monocytes % Pending, Eosinophils % Pending, Basophils % Pending, Absolute Granulocytes Pending, Absolute Lymphocytes Pending, Absolute Monocytes Pending, Absolute Eosinophils Pending, Absolute Basophils Pending Microbiology 03/29 1130 LOWER RESP: Respiratory Culture - RES 03/29 113 LOWER RESP: Gram Stain - RES Assessment/Plan Assessment: 27-year-old male with a PMH significant for pneumonia, asthma, ADHD, bicuspid aortic valve, IV drug abuse, opiate use currently on methadone (follows at [facility]), who presented to ED complaining of a three-day history of worsening productive cough and dyspnea. Assessment: 1. Acute Hypoxic Respiratory Failure 2. Pneumonia 3. Asthma Exacerbation 4. History of Opiate use now on Methadone Plan: * Continue supplemental oxygen to maintain target sats >92%. Continues to be on ventimask at 55%. Will wean off as tolerated. * TRC/Nebs as needed. * Decrease IV SoluMedrol 40mg q8. * CTA chest showed patchy multifocal groundglass opacification suggestive of pneumonia * Continue IV Ceftriaxone and Azithromycin * His LDH is mildy elevated to 771 but his HIV is negative. PCP is less concerning at this time. * Continue methadone 90mg and and Clonzapam 0.5mg TID prn for anxiety. * Nicotine patch 21mg. * Diet: Regular * DVT Prophylaxis: SC Lovenox * Code: Full Code Problem List: 1. Asthma exacerbation Pain Ratin Pain Location: none Pain Goal: Remain pain free Pain Plan: none Tomorrow's Labs & Rationales: CBC, Tom PIERCE,Elvie 03/30/18 1121: Attending MD Review Statement Attending Statement Attending MD Statement: examined this patient, discuss w/resident/PA/LINUX SERVER ENGINEER, agreed w/resident/PA/LINUX SERVER ENGINEER, reviewed EMR data (avail), discussed with nursing, discussed with case mgmt, reviewed images, amended to note Attending Assessment/Plan: Patient seen and examined, feeling slightly better today. Still requiring 55% Ventimask. Patient's HIV screen was negative. Vital Signs Date Time Temp Pulse Resp B/P B/P Pulse O2 O2 Flow FiO2 Mean Ox Delivery Rate 03/30 1010 96 Venti Mask 55% 03/30 0800 Venti Mask 55% 03/30 0634 97.8 68 20 140/90 98 Venti Mask 03/30 0009 92 Venti Mask 55% 08 0000 94 Venti Mask 55% 03/29 2219 98.5 91 20 140/84 94 Venti Mask 55% 03/29 1631 97 Venti Mask 55% 03/29 1426 97.7 82 22 99 Venti Mask 80% on exam; aox3, nad. cv; s1,s2, rrr resp; b/l exp wheeze but improved than before. abd; soft, nt, bs+ ext; no edema Laboratory Tests 03/30 630 Hematology CBC w Diff NO MAN DIFF REQ WBC (4.8 - 10.8 /CUMM) 17.1 H RBC (4.70 - 6.10 /CUMM) 4.15 L Hgb (14.0 - 18.0 G/DL) 11.5 L Hct (42 - 52 %) 34.3 L MCV (80.0 - 94.0 FL) 82.7 MCH (27.0 - 31.0 PG) 27.7 MCHC (33.0 - 37.0 G/DL) 33.5 RDW (11.5 - 14.5 %) 14.4 Plt Count (130 - 400 /CUMM) 283 MPV (7.4 - 10.4 FL) 7.7 Gran % (42.2 - 75.2 %) 92.2 H Lymphocytes % (20.5 - 51.1 %) 3.9 L Monocytes % (1.7 - 9.3 %) 3.8 Eosinophils % (0 - 5 %) 0.1 Basophils % (0.0 - 2.0 %) 0 Absolute Granulocytes (1.4 - 6.5 /CUMM) 15.8 H Absolute Lymphocytes (1.2 - 3.4 /CUMM) 0.7 L Absolute Monocytes (0.10 - 0.60 /CUMM) 0.6 Absolute Eosinophils (0.0 - 0.7 /CUMM) 0 Absolute Basophils (0.0 - 0.2 /CUMM) 0 A/p; 27 y/o M with pmh sig for pneumonia, asthma, ADHD, bicuspid aortic valve, IV drug abuse, opiate abuse currently on methadone admitted with ac resp failure , community acquired pna and acute asthma excacerbation. Yesterday patient had increased oxygen requirement. We consulted pulmonology as well as infectious disease. Appreciate both consultants input. Patient did have high LDH but HIV screen was negative. We thought about the possibility off pneumocystis pneumonia but with HIV screen being negative this is less likely. Currently patient on IV and Biaxin IV steroids. We'll continue both. Will decrease the frequency of Solu- Medrol every 8hrs. We'll follow-up on the sputum cultures. Will continue TRC nebs and continue to try to taper his oxygen. Chest CTA was negative for any pulmonary embolus. Anxiety better controlled with Klonopin 3 times a day. Continue the rest of the medications including methadone. Patient on heparin subcutaneous for DVT prophylaxis.
[2018-03-30 07:29] LABS: ABSOLUTE BASOPHIL COUNT 0 /CUMM (0.0-0.2); ABSOLUTE EOSINOPHIL COUNT 0 /CUMM (0.0-0.7); ABSOLUTE GRANULOCYTE CT 15.8 /CUMM (1.4-6.5); ABSOLUTE LYMPH COUNT 0.7 /CUMM (1.2-3.4); ABSOLUTE MONOCYTE COUNT 0.6 /CUMM (0.10-0.60); BASOPHIL % 0 % (0.0-2.0); EOSINOPHIL % 0.1 % (0-5); HEMATOCRIT 34.3 % (42-52); MEAN CORPUSCULAR HGB 27.7 PG (27.0-31.0); MEAN CORPUSCULAR HGB CONC 33.5 G/DL (33.0-37.0); MEAN CORPUSCULAR VOLUME 82.7 FL (80.0-94.0); MEAN PLATELET VOLUME 7.7 FL (7.4-10.4); PLATELET COUNT 283 /CUMM (130-400); RBC DISTRIBUTION WIDTH 14.4 % (11.5-14.5); RED BLOOD CELL CT 4.15 /CUMM (4.70-6.10); WHITE BLOOD CELL COUNT 17.1 /CUMM (4.8-10.8)
--- NOTE | 2018-03-30 08:05 | PN- Student ---
Subjective Subjective: No acute events overnight. Patient ambulating without any SOB. Breathing is stable. Denied having headache, SOB, chest pain, nausea/vomiting, abd pain. Objective Objective: Vital Signs Date Time Temp Pulse Resp B/P B/P Pulse O2 O2 Flow FiO2 Mean Ox Delivery Rate 03/30 0634 97.8 68 20 140/90 98 Venti Mask 03/30 0009 92 Venti Mask 55% /08 0000 94 Venti Mask 55% 03/29 2219 98.5 91 20 140/84 94 Venti Mask 55% /07 1631 97 Venti Mask 55% /07 1426 97.7 82 22 99 Venti Mask 80% 03/29 0824 94 Nasal 50% Cannula Intake & Output 03/30 1600 03/30 0800 03/30 0000 Intake Total 1740 Output Total 1600 Balance 140 Intake, IV 300 Intake, Oral 1440 Output, Urine 1600 PE General: anxious young male, alert and oriented, saturating well with a venti mask HEENT: NCAT, anicteric sclera CVS: regular rate and rythm, normal S1 and S2 Lungs: symetrical chest expansion, scatted bilateral wheeze Abdomen: presented bowel sounds, soft, nondistended, nontender Extemities: palpable pulses x4, no edema Results Results: Laboratory Tests 03/30 630 Hematology CBC w Diff NO MAN DIFF REQ WBC (4.8 - 10.8 /CUMM) 17.1 H RBC (4.70 - 6.10 /CUMM) 4.15 L Hgb (14.0 - 18.0 G/DL) 11.5 L Hct (42 - 52 %) 34.3 L MCV (80.0 - 94.0 FL) 82.7 MCH (27.0 - 31.0 PG) 27.7 MCHC (33.0 - 37.0 G/DL) 33.5 RDW (11.5 - 14.5 %) 14.4 Plt Count (130 - 400 /CUMM) 283 MPV (7.4 - 10.4 FL) 7.7 Gran % (42.2 - 75.2 %) 92.2 H Lymphocytes % (20.5 - 51.1 %) 3.9 L Monocytes % (1.7 - 9.3 %) 3.8 Eosinophils % (0 - 5 %) 0.1 Basophils % (0.0 - 2.0 %) 0 Absolute Granulocytes (1.4 - 6.5 /CUMM) 15.8 H Absolute Lymphocytes (1.2 - 3.4 /CUMM) 0.7 L Absolute Monocytes (0.10 - 0.60 /CUMM) 0.6 Absolute Eosinophils (0.0 - 0.7 /CUMM) 0 Absolute Basophils (0.0 - 0.2 /CUMM) 0 Assessment/Plan Assessment: 27 y/o smoker M with a PMH significant for pneumonia, asthma, ADHD, bicuspid aortic valve, IV drug abuse, opiate use currently on methadone (follows at [facility]), who presented to ED complaining of worsening productive cough and dyspnea of three days prior to admission. CTA showed no evidence for pulmonary embolism and nonspecific patchy multifocal groundglass opacification. At this point the etiology of the opacifications are uncertain. Infectious vs. inflammatory processes are in ther ddx. HIV negative, LDH is mildy elevated to 771. Lower Gram stain showing budding yeast, few gram positive cocci and rods, but poor sample was optained. Negative legionella and negative Strep, pneumo. Plan: Acute Hypoxic Respiratory Failure probably 2/2 to Pneumonia or Asthma Exacerbation: -monitor vitals -cont. O2 supplementation target > 92 (patient currentlyt with venty mask) -Taper O2 -cont. IV steroids with IV solumedrol 40mg Q8 -Cont. IV ceftriaxone and azithromycin for suspected CAP eventhough no fever, growing mixed culture in gram stain -Pulmonary toilet -Cont. mehtadone 90mg -Clonazepam was increased yesterday (patient feeling better with this regiment) -Cont. Nicotine patch 21mg. Diet: Regular DVT Prophylaxis: SC Lovenox Code: Full Code Pending: sputum cx
--- NOTE | 2018-03-30 08:07 | PN- Pulmonary ---
Subjective HPI/Critical Care Issues: Patient reports feeling improved with decrease shortness of breath Objective Current Medications: Current Medications Sig/Shelia Start time Last Medication Dose Route Stop Time Status Admin Albuterol Sulfate 3 ML Q4 03/28 1000 AC 03/30 INH 0345 Azithromycin 500 MG 0100 03/29 0100 AC 03/30 Sodium Chloride 250 ML IV 0025 Budesonide/ 2 PUF BID 03/28 0226 AC 03/29 Formoterol Fumarate INH 2106 Ceftriaxone Sodium 1,000 MG 0100 03/29 0100 AC 03/30 IV 0019 Clonazepam 1 MG .STK-MED ONE 03/29 2104 DC PO 03/29 2105 Clonazepam 0.5 MG TID 03/29 1400 AC 03/29 PO 04/05 1359 2107 Clonazepam 0.5 MG ONCE ONE 03/29 1000 DC 03/29 PO 03/29 1001 1018 Clonazepam 0.5 MG BID PRN 03/28 0230 DC 03/29 PO 04/04 0229 0602 Fluoxetine HCl 20 MG DAILY 03/28 09 AC 03/29 PO 0832 Heparin Sodium 5,000 UNIT Q8 03/28 0600 AC 03/28 (Porcine) SC 0552 Ipratropium [place] 2.5 ML Q4 03/28 1000 AC 03/30 INH 0345 Melatonin 5 MG AT BEDTIME PRN 03/29 0100 AC 03/30 PO 0024 Methadone HCl 90 MG DAILY 03/28 0900 AC 03/29 PO 0832 Methylprednisolone 40 MG Q6 03/28 1200 AC 03/30 IV 0514 Nicotine 21 MG 1700 03/29 1700 AC TOP Nicotine 21 MG DAILY 03/29 0900 DC 03/29 TOP 1644 Patient Medication 1 ED ONE ONE 03/29 1645 ND Teaching ED 03/29 1646 Vital Signs & I&O Last 24 Hrs of Vitals and I&O: Vital Signs Date Time Temp Pulse Resp B/P B/P Pulse O2 O2 Flow FiO2 Mean Ox Delivery Rate 03/30 634 97.8 68 20 140/90 98 Venti Mask 03/30 0009 92 Venti Mask 55% 03/30 0000 94 Venti Mask 55% 03/29 2219 98.5 91 20 140/84 94 Venti Mask 55% 03/29 1631 97 Venti Mask 55% 03/29 1426 97.7 82 22 99 Venti Mask 80% 03/29 0824 94 Nasal 50% Cannula Intake & Output 03/30 1600 06/08 0800 06/08 0000 Intake Total 1740 Output Total 1600 Balance 140 Intake, IV 300 Intake, Oral 1440 Output, Urine 1600 Oxygen saturation 98% on FiO2 55% exam of his chest shows decreased bronchospasm cardiac exam shows regular S1 and S2 without murmurs. shows white cells cultures pending. Sputum Gram stain shows white cells culture pending. HIV reportedly negative Impression/Plan Impression/Plan Impression/Plan: 27-year-old gentleman has improving acute hypoxic respiratory failure in the setting of bronchospasm and possible pneumonia Recommendations: Taper FiO2 with improved saturations. Continue IV steroids and antibiotics. Follow-up sputum culture
[2018-03-30 08:45] LABS: GRANULOCYTE % 92.2 % (42.2-75.2)
--- NOTE | 2018-03-30 12:58 | PN- Infect Dx ---
Subjective Subjective: Afebrile on steroids. He feels improved with decreased shortness of breath and minimal cough Objective Last 24 Hrs of Vital Signs/I&O Vital Signs Date Time Temp Pulse Resp B/P B/P Pulse O2 O2 Flow FiO2 Mean Ox Delivery Rate 03/30 1010 96 Venti Mask 55% 03/30 0800 Venti Mask 55% 03/30 0634 97.8 68 20 140/90 98 Venti Mask /08 0009 92 Venti Mask 55% 06/08 0000 94 Venti Mask 55% 03/29 2219 98.5 91 20 140/84 94 Venti Mask 55% /07 1631 97 Venti Mask 55% /07 1426 97.7 82 22 99 Venti Mask 80% Intake & Output 03/30 1600 03/30 0800 03/30 0000 Intake Total 1740 Output Total 1600 Balance 140 Intake, IV 300 Intake, Oral 1440 Output, Urine 1600 Physical Exam Other Physical Findings: He appears more comfortable in no acute distress Lungs diffuse rhonchi and wheezes persist Heart regular rhythm with no murmur Extremities no cyanosis, clubbing or edema Results Last 24 Hours of Lab Results: Laboratory Tests 03/30 0630 Hematology CBC w Diff NO MAN DIFF REQ WBC (4.8 - 10.8 /CUMM) 17.1 H RBC (4.70 - 6.10 /CUMM) 4.15 L Hgb (14.0 - 18.0 G/DL) 11.5 L Hct (42 - 52 %) 34.3 L MCV (80.0 - 94.0 FL) 82.7 MCH (27.0 - 31.0 PG) 27.7 MCHC (33.0 - 37.0 G/DL) 33.5 RDW (11.5 - 14.5 %) 14.4 Plt Count (130 - 400 /CUMM) 283 MPV (7.4 - 10.4 FL) 7.7 Gran % (42.2 - 75.2 %) 92.2 H Lymphocytes % (20.5 - 51.1 %) 3.9 L Monocytes % (1.7 - 9.3 %) 3.8 Eosinophils % (0 - 5 %) 0.1 Basophils % (0.0 - 2.0 %) 0 Absolute Granulocytes (1.4 - 6.5 /CUMM) 15.8 H Absolute Lymphocytes (1.2 - 3.4 /CUMM) 0.7 L Absolute Monocytes (0.10 - 0.60 /CUMM) 0.6 Absolute Eosinophils (0.0 - 0.7 /CUMM) 0 Absolute Basophils (0.0 - 0.2 /CUMM) 0 Last 24 Hours of Mejia Results: Sputum culture March 29 mixed janna Blood culture March 27 negative Blood culture March 28 negative Assessment/Plan ID Impression: Improving, with decreased shortness of breath reported, on steroids and Ceftriaxone/Azithromycin, Day 3 of treatment for an exacerbation of asthma with possible pneumonia. He remains afebrile (on steroids) with white blood cell count elevated, likely secondary to steroids, as his white blood cell count was normal on admission. Suggestion: 1. Follow-up final sputum culture 2. Further management of steroids per Pulmonary 3. Continue Ceftriaxone and Azithromycin pending above but, if his sputum culture only grows mixed janna, can change to Azithromycin 500 mg p.o. to complete a [address] course [address] treatment [address] Fournier is covering over the weekend
--- NOTE | 2018-03-30 15:33 | Patient Discharge Instructions ---
Discharge Instructions General Discharge Information You were seen/treated for: Asthma Exacerbation Pneumonia Special Instructions: Please follow up with your PCP and Foundation Assistant within one week of discharge. Diet Continue normal diet: Yes Recommended Diet: Regular Activity Full Activity/No Limits: Yes Acute Coronary Syndrome Inclusion Criteria At DC or during hospital stay patient has or had the following: ACS DIAGNOSIS No Discharge Core Measures Meds if any: Prescribed or Continued at Discharge Meds if any: NOT Prescribed or Continued at Discharge Congestive Heart Failure Inclusion Criteria At DC or during hospital stay patient has or had the following: CHF DIAGNOSIS No Discharge Core Measures Meds if any: Prescribed or Continued at Discharge Meds if any: NOT Prescribed or Continued at Discharge Cerebrovascular accident Inclusion Criteria At DC or during hospital stay patient has or had the following: CVA/TIA Diagnosis No Discharge Core Measures Meds if any: Prescribed or Continued at Discharge Meds if any: NOT Prescribed or Continued at Discharge Venous thromboembolism Inclusion Criteria VTE Diagnosis No VTE Type NONE VTE Confirmed by (Test) NONE Discharge Core Measures - Per Current guidelines, there needs to be overlap - treatment for the first 5 days of Warfarin therapy. - If discharged on Warfarin prior to 5 days of - overlap therapy, the patient will need to be - assessed for post discharge needs including - *Post discharge parental anticoagulation - *Warfarin and/or parental anticoagulation education - *Follow up date to check INR post discharge At least 5 days overlap therapy as Inpatient No Meds if any: Prescribed or Continued at Discharge Note: Overlap Therapy is Warfarin and Anticoagulant Meds if any: NOT Prescribed or Continued at Discharge
[2018-03-30 18:24] VITALS: BP 136/94
[2018-03-30 21:32] VITALS: BP 136/75
[2018-03-31 06:00] VITALS: BP 152/64
--- NOTE | 2018-03-31 07:56 | PN- Housestaff ---
Subjective Follow-up For: acute hypoxic respiratory failure pneumonia astham exacerbation Subjective: patient seen and examined. repoerts feeling better than yesterday. offers no complaints. Review of Systems Constitutional: Reports: no symptoms. Objective Last 24 Hrs of Vital Signs/I&O Vital Signs Date Time Temp Pulse Resp B/P B/P Pulse O2 O2 Flow FiO2 Mean Ox Delivery Rate 03/31 0829 98 Nasal 6.0L Cannula 03/31 06 98.7 72 20 152/64 96 Nasal 6.0L Cannula 03/31 0337 95 Nasal 6.0L Cannula 03/31 0000 96 Nasal 6.0L Cannula 03/30 2132 98.1 75 18 136/75 96 03/30 1824 98.1 72 18 136/94 93 03/30 1800 94 Nasal 6.0L Cannula 03/30 1429 96 Nasal 6.0L Cannula Intake & Output 03/31 1600 03/31 0800 03/31 0000 Intake Total 1470 480 Output Total Balance 1470 480 Intake, IV 270 Intake, Oral 1200 480 Physical Exam General Appearance: Alert, Oriented X3, Cooperative, Mild Distress Skin: No Rashes, No Breakdown Skin Temp/Moisture Exam: Warm/Dry Sepsis Skin Exam (color): Normal for Ethnicity HEENT: Atraumatic Cardiovascular: Normal S1, Normal S2, pansystolic murmur Lungs: diffuse rhonchi and wheezing, mildly improved from yesterday Abdomen: Soft, No Tenderness Neurological: Normal Speech Extremities: No Edema Last 24 Hrs of Lab/Mejia Results Last 24 Hrs of Labs/Mics: Microbiology 03/30 1600 UPPER RESP: Surveillance Culture - RECD Assessment/Plan Assessment: 27-year-old male with a PMH significant for pneumonia, asthma, ADHD, bicuspid aortic valve, IV drug abuse, opiate use currently on methadone (follows at [facility]), who presented to ED complaining of a three-day history of worsening productive cough and dyspnea. Assessment: 1. Acute Hypoxic Respiratory Failure 2. Pneumonia 3. Asthma Exacerbation 4. History of Opiate use now on Methadone Plan: * Continue supplemental oxygen to maintain target sats >92%. Currently on 6L of O2. Will wean off as tolerated. * TRC/Nebs as needed. * Decrease IV SoluMedrol 40mg q12. Can likely be swtiched to PO steroids from tomorrow. * CTA chest showed patchy multifocal groundglass opacification suggestive of pneumonia * Sputum culture shows mixed janna and yeast. * Discontinue IV Ceftriaxone * Switch IV azithromycin to PO * His LDH was mildy elevated to 771 but his HIV is negative. PCP is less concerning at this time. * Continue methadone 90mg and and Clonzapam 0.5mg TID prn for anxiety. * Nicotine patch 21mg. * Diet: Regular * DVT Prophylaxis: SC Lovenox * Code: Full Code Problem List: 1. Asthma exacerbation Pain Ratin Pain Location: none Pain Goal: Remain pain free Pain Plan: none Tomorrow's Labs & Rationales: CBC
--- NOTE | 2018-03-31 08:43 | PN- Student ---
Subjective Subjective: No acute events overnight. Patient seen and examined this morning. Patient doing "better". Patient is been weened off the oxygen requirement. Reported feeling less axious. Denied headache, chest pain, palpitation, abdominal pain. Objective Objective: Vital Signs Date Time Temp Pulse Resp B/P B/P Pulse O2 O2 Flow FiO2 Mean Ox Delivery Rate 03/31 0829 98 Nasal 6.0L Cannula 03/31 06 98.7 72 20 152/64 96 Nasal 6.0L Cannula 03/31 0337 95 Nasal 6.0L Cannula 03/31 0000 96 Nasal 6.0L Cannula 03/30 2132 98.1 75 18 136/75 96 03/30 1824 98.1 72 18 136/94 93 03/30 1800 94 Nasal 6.0L Cannula 03/30 1429 96 Nasal 6.0L Cannula 03/30 1010 96 Venti Mask 55% Intake & Output 03/31 1600 03/31 0800 03/31 0000 Intake Total 1470 480 Output Total Balance 1470 480 Intake, IV 270 Intake, Oral 1200 480 PE: General:patient resting in bed lert and oriented. On 6L NS, breathing normal without any distress HEENT: NCAT, anicteric sclera CVS: regular rate and rythm, normal S1 and S2, soft 3/6 systolic mumur best heard at the base of the heart Lungs: sysmetrical chets expansion, expiratory scatted wheeze (improving) and mild continuous rhonchi that cleared with cough. Abdomen: presented bowel sounds, soft, nontender, nondistended Assessment/Plan Assessment: 27 y/o smoker M with a PMH significant for pneumonia, asthma, ADHD, bicuspid aortic valve, IV drug abuse, opiate use currently on methadone (follows at [facility]), who presented to ED complaining of worsening productive cough and dyspnea of three days prior to admission. CTA showed no evidence for pulmonary embolism and nonspecific patchy multifocal groundglass opacification. At this point the etiology of the opacifications are uncertain. Infectious vs. inflammatory processes are in ther ddx. Patient have not experience any fever, and leukocytosis is though to be reactive to steroids (since he did not presented with leukocytosis at the time of admisison). Based on this asthma exacerbation is more likely. HIV negative, LDH is mildy elevated to 771. Lower Gram stain showing mixed janna. Negative legionella and negative Strep, pneumo. Patient saturating >95% at 6l NS that is improving. Plan: Acute Hypoxic Respiratory Failure probably 2/2 Asthma Exacerbation: -monitor vitals -cont. O2 supplementation target > 92 -Taper O2 -IV solumedrol 40mg Q12 -Mixed janna- cont. Azithromycin 500 mg p.o. to complete 5 day -Atrovent 2.5mL Q4 and Proventil 3mL Q4 -Pulmonary toilet -Cont. methadone 90mg -Cont. current clonazepam regiment -Cont. Nicotine patch 21mg. Diet: Regular DVT Prophylaxis: SC Lovenox Code: Full Code
--- NOTE | 2018-03-31 08:44 | PN- Att Addend ---
Attending Addendum Attending Brief Note Patient seen and examined. Plan of care discussed with the medical team and the patient. Available lab work and radiology test reports were reviewed. Patient feels better. He currently has cough with scant amount of sputum production. He is currently on 6 L oxygen by nasal cannula. He denies any chest pain and is difficult breathing has improved. Assessment 1. Acute Hypoxic Respiratory Failure 2. Pneumonia 3. Asthma Exacerbation 4. History of Opiate use now on Methadone Plan * Continue to taper oxygen as tolerated * Repeat CBC tomorrow * Continue current antibiotics * Overall patient appears to be clinically improving Exam: General: Patient awake alert oriented without any distress CVS: S1 plus S2 without any murmur or gallops Chest: Few scattered crepitation without any wheeze. There is no respiratory distress. 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 without any focal neuro deficit and follows commands appropriately Extremities: No edema; no clubbing or cyanosis noted Current Medications Sig/Shelia Start time Last Medication Dose Route Stop Time Status Admin Albuterol Sulfate 3 ML Q4 03/28 1000 AC 03/31 INH 0759 Azithromycin 500 MG 0100 03/29 0100 AC 03/31 Sodium Chloride 250 ML IV 0128 Budesonide/ 2 PUF BID 03/28 0226 AC 03/30 Formoterol Fumarate INH 205 Ceftriaxone Sodium 1,000 MG 0100 03/29 0100 AC 03/31 IV 0128 Clonazepam 0.5 MG TID 03/29 1400 AC 03/30 PO 04/05 1359 2055 Fluoxetine HCl 20 MG DAILY 03/28 0900 AC 03/30 PO 0906 Heparin Sodium 5,000 UNIT Q8 03/28 0600 AC 03/28 (Porcine) SC 0552 Ipratropium [place] 2.5 ML Q4 03/28 1000 AC 03/31 INH 0759 Melatonin 5 MG AT BEDTIME PRN 03/29 0100 AC 03/31 PO 0137 Methadone HCl 90 MG DAILY 03/28 0900 AC 03/30 PO 0906 Methylprednisolone 40 MG Q8 03/30 1400 AC 03/31 IV 0510 Methylprednisolone 40 MG Q6 03/28 1200 DC 03/30 IV 0514 Nicotine 21 MG 1700 03/29 1700 AC 03/30 TOP 1603 Patient Medication 1 ED ONE ONE 03/30 1330 SD Teaching ED 03/30 1331 Laboratory Tests 03/30/18 0630: CBC w Diff NO MAN DIFF REQ, RBC 4.15 L, MCV 82.7, MCH 27.7, MCHC 33.5, RDW 14.4 , MPV 7.7, Gran % 92.2 H, Lymphocytes % 3.9 L, Monocytes % 3.8, Eosinophils % 0.1, Basophils % 0, Absolute Granulocytes 15.8 H, Absolute Lymphocytes 0.7 L, Absolute Monocytes 0.6, Absolute Eosinophils 0, Absolute Basophils 0 03/29/18 0657: Anion Gap 13, Estimated GFR > 60, BUN/Creatinine Ratio 20.0, Lactate Dehydrogenase 771 H, CBC w Diff MAN DIFF ORDERED, RBC 4.12 L, MCV 82.2, MCH 28.0, MCHC 34.1, RDW 14.2, MPV 7.7, Gran % 95.2 H, Lymphocytes % 2.0 L, Monocytes % 2.8, Eosinophils % 0, Basophils % 0, Absolute Granulocytes 15.8 H, Segmented Neutrophils 92 H, Band Neutrophils 4, Absolute Lymphocytes 0.3 L, Lymphocytes 3 L, Absolute Monocytes 0.5, Eosinophils 1, Absolute Eosinophils 0, Absolute Basophils 0, Platelet Estimate ADEQUATE, Anisocytosis 1+, Hepatitis C Antibody Pending, HIV 1&2 Ab Western Blot NONREACTIVE 03/28/18 0905: pH 7.43, pCO2 34 L, pO2 63 L, HCO3 22, ABG O2 Sat (Measured) 90.0 L, P-50 ( Temp Corrected) N, Carboxyhemoglobin 1.1 L, O2 Concentration % 55%, Temperature 98.7, O2 Delivery Method VM, Phlebotomy Draw Site RIGHT RADIAL Microbiology 03/30 1600 UPPER RESP: Surveillance Culture - RECD 03/29 1130 LOWER RESP: Respiratory Culture - RES 03/29 1130 LOWER RESP: Gram Stain - RES 03/28 2230 LOWER RESP: Respiratory Culture - CAN Cancelled: NUMBER OF SQUAMOUS CELLS INDICATES POOR QUALITY SPECIMEN 03/28 2230 LOWER RESP: Gram Stain - CAN Cancelled: NUMBER OF SQUAMOUS CELLS INDICATES POOR QUALITY SPECIMEN Vital Signs Date Time Temp Pulse Resp B/P B/P Pulse O2 O2 Flow FiO2 Mean Ox Delivery Rate 03/31 0829 98 Nasal 6.0L Cannula 03/31 06 98.7 72 20 152/64 96 Nasal 6.0L Cannula 03/31 0337 95 Nasal 6.0L Cannula 03/31 0000 96 Nasal 6.0L Cannula 03/30 2132 98.1 75 18 136/75 96 03/30 1824 98.1 72 18 136/94 93 03/30 1800 94 Nasal 6.0L Cannula 03/30 1429 96 Nasal 6.0L Cannula 03/30 1010 96 Venti Mask 55% Intake & Output 03/31 1600 03/31 0800 03/31 0000 Intake Total 1470 480 Output Total Balance 1470 480 Intake, IV 270 Intake, Oral 1200 480
--- NOTE | 2018-03-31 09:59 | PN- Pulmonary ---
Subjective HPI/Critical Care Issues: Patient shortness of breath is improved oxygenation improved now on 4 L nasal oxygen Objective Current Medications: Current Medications Sig/Shelia Start time Last Medication Dose Route Stop Time Status Admin Albuterol Sulfate 3 ML Q4 03/28 1000 AC 03/31 INH 0759 Azithromycin 500 MG 0100 03/29 0100 AC 03/31 Sodium Chloride 250 ML IV 0128 Budesonide/ 2 PUF BID 03/28 0226 AC 03/31 Formoterol Fumarate INH 0922 Ceftriaxone Sodium 1,000 MG 0100 03/29 0100 AC 03/31 IV 0128 Clonazepam 0.5 MG TID 03/29 1400 AC 03/31 PO 04/05 1359 0921 Fluoxetine HCl 20 MG DAILY 03/28 0900 AC 03/31 PO 0921 Heparin Sodium 5,000 UNIT Q8 03/28 06 AC 03/28 (Porcine) SC 0552 Ipratropium [place] 2.5 ML Q4 03/28 1000 AC 03/31 INH 0759 Melatonin 5 MG .STK-MED ONE 03/31 0136 DC PO 03/31 0137 Melatonin 5 MG AT BEDTIME PRN 03/29 0100 AC 03/31 PO 0137 Methadone HCl 90 MG DAILY 03/28 0900 AC 03/31 PO 0921 Methylprednisolone 40 MG Q8 03/30 1400 AC 03/31 IV 0510 Nicotine 21 MG 1700 03/29 1700 AC 03/30 TOP 1603 Patient Medication 1 ED ONE ONE 03/30 1330 DC Teaching ED 03/30 1331 Vital Signs & I&O Last 24 Hrs of Vitals and I&O: Vital Signs Date Time Temp Pulse Resp B/P B/P Pulse O2 O2 Flow FiO2 Mean Ox Delivery Rate 03/31 0829 98 Nasal 6.0L Cannula 03/31 600 98.7 72 20 152/64 96 Nasal 6.0L Cannula 03/31 0337 95 Nasal 6.0L Cannula 03/31 0000 96 Nasal 6.0L Cannula 03/30 2132 98.1 75 18 136/75 96 03/30 1824 98.1 72 18 136/94 93 03/30 1800 94 Nasal 6.0L Cannula 03/30 1429 96 Nasal 6.0L Cannula 03/30 1010 96 Venti Mask 55% Intake & Output 03/31 1600 03/31 0800 03/31 0000 Intake Total 1470 480 Output Total Balance 1470 480 Intake, IV 270 Intake, Oral 1200 480 Saturation 98% exam of his chest shows markedly improved wheezing though there are still expiratory wheezes cardiac exam shows regular S1 and S2 without murmurs Impression/Plan Impression/Plan Impression/Plan: 27-year-old admitted with acute asthma and probable community acquired pneumonia has improving acute hypoxic respiratory failure Recommendations: Taper FiO2 with improved saturations. Continue IV steroids and antibiotics. Follow-up sputum culture. Will hope to change to by mouth steroids tomorrow and consider discharge
--- NOTE | 2018-03-31 13:32 | PN- Infect Dx ---
Subjective Subjective: This patient is a 27-year-old male with a left-sided pneumonia. States that he feels well however he continues on oxygen and appears pale and diaphoretic. He denies any fevers chills nausea vomiting diarrhea or constipation. Review of Systems Comments: 12 point review of systems complete findings noted on HPI Objective Last 24 Hrs of Vital Signs/I&O Vital Signs Date Time Temp Pulse Resp B/P B/P Pulse O2 O2 Flow FiO2 Mean Ox Delivery Rate 03/31 0829 98 Nasal 6.0L Cannula 03/31 800 95 Nasal 6.0L Cannula 03/31 600 98.7 72 20 152/64 96 Nasal 6.0L Cannula 03/31 0337 95 Nasal 6.0L Cannula 03/31 0000 96 Nasal 6.0L Cannula 03/30 2132 98.1 75 18 136/75 96 03/30 1824 98.1 72 18 136/94 93 03/30 1800 94 Nasal 6.0L Cannula 03/30 1429 96 Nasal 6.0L Cannula Intake & Output 03/31 1600 03/31 0800 03/31 0000 Intake Total 1470 480 Output Total Balance 1470 480 Intake, IV 270 Intake, Oral 1200 480 Physical Exam Other Physical Findings: Appears to be in mild distress Awake alert oriented 3 Pupils equal and reactive to light and accommodation equal ocular motion Neck supple no JVD no lymphadenopathy Heart regular rate and rhythm S1-S2 Diffuse wheezing throughout his lungs Abdomen soft nontender nondistended No neurologic dysfunction Results Last 24 Hours of Lab Results: Last white blood cell count done on March 30 at 17,000 on steroids Last 24 Hours of Mejia Results: Microbiology Date/Time Procedure - Status Source Growth 03/30 1600 Surveillance Culture - RECD UPPER RESP 03/29 1130 Respiratory Culture - COMP LOWER RESP YEAST 03/29 113 Gram Stain - COMP LOWER RESP 03/28 2230 Respiratory Culture - CAN LOWER RESP Cancelled: NUMBER OF SQUAMOUS CELLS INDICATES POOR QUALITY SPECIMEN 03/28 2230 Gram Stain - CAN LOWER RESP Cancelled: NUMBER OF SQUAMOUS CELLS INDICATES POOR QUALITY SPECIMEN Recent Imaging Studies: No recent studies Assessment/Plan ID Impression: This Patient is a 27-year-old male with an elevated white blood cell count on steroids who remains afebrile. Patient is on day 4 of ceftriaxone and azithromycin for asthma and pneumonia. He appears to be slowly improving. Suggestion: 1. Continue ceftriaxone and azithromycin 2. Repeat white blood cell count in the morning 3. She is requesting hepatitis C. This has been done, is negative and the resident will discuss with the patient
[2018-03-31 15:00] VITALS: BP 158/114
[2018-03-31 15:01] VITALS: BP 170/104
[2018-03-31 16:40] VITALS: BP 170/102
[2018-03-31 18:30] VITALS: BP 154/102
[2018-03-31 21:38] VITALS: BP 160/110
[2018-04-01 06:07] VITALS: BP 166/92
[2018-04-01 06:21] VITALS: BP 166/92
--- NOTE | 2018-04-01 08:06 | PN- Housestaff ---
Subjective Follow-up For: Pneumonia Asthma Exacerbation Subjective: patient seen and examined. Reports feeling better. Has no complaints. Review of Systems Constitutional: Reports: no symptoms. Objective Last 24 Hrs of Vital Signs/I&O Vital Signs Date Time Temp Pulse Resp B/P B/P Pulse O2 O2 Flow FiO2 Mean Ox Delivery Rate 04/01 0800 95 Nasal 4.0L Cannula 04/01 0750 95 Nasal 2.0L Cannula 04/01 0621 166/92 04/01 0607 97.9 62 20 166/92 95 04/01 0000 Nasal 4.0L Cannula 03/31 2138 99.3 73 18 160/110 96 Nasal 4.0L Cannula 03/31 1830 74 154/102 03/31 1727 74 170/102 03/31 1640 74 170/102 03/31 1631 92 Nasal 4.0L Cannula 03/31 1501 99.4 64 20 170/104 96 Nasal Cannula 03/31 1500 66 158/114 Physical Exam General Appearance: Alert, Oriented X3, Cooperative, Mild Distress Skin: No Rashes, No Breakdown Skin Temp/Moisture Exam: Warm/Dry Sepsis Skin Exam (color): Normal for Ethnicity HEENT: Atraumatic Cardiovascular: Normal S1, Normal S2, systolic murmur Lungs: Normal Air Movement, diffuse rhonchi and wheezing significantly improved since yesterday Abdomen: Soft, No Tenderness Neurological: Normal Speech Last 24 Hrs of Lab/Mejia Results Last 24 Hrs of Labs/Mics: Laboratory Tests 04/01/18 0659: CBC w Diff NO MAN DIFF REQ, RBC 4.59 L, MCV 81.9, MCH 27.5, MCHC 33.6, RDW 14.3 , MPV 7.3 L, Gran % 79.7 H, Lymphocytes % 15.3 L, Monocytes % 4.6, Eosinophils % 0.2, Basophils % 0.2, Absolute Granulocytes 11.5 H, Absolute Lymphocytes 2.2, Absolute Monocytes 0.7 H, Absolute Eosinophils 0, Absolute Basophils 0 Assessment/Plan Assessment: 27-year-old male with a PMH significant for pneumonia, asthma, ADHD, bicuspid aortic valve, IV drug abuse, opiate use currently on methadone (follows at [facility]), who presented to ED complaining of a three-day history of worsening productive cough and dyspnea. Assessment: 1. Acute Hypoxic Respiratory Failure 2. Pneumonia 3. Asthma Exacerbation 4. History of Opiate use now on Methadone Plan: * Continue supplemental oxygen to maintain target sats >92%. Currently on 2L of O2. Will wean off as tolerated. * TRC/Nebs as needed. * Decrease IV SoluMedrol 40mg daily. Can likely be swtiched to PO steroids from tomorrow. * If stable and off oxygen can be discharged tomorrow. * CTA chest showed patchy multifocal groundglass opacification suggestive of pneumonia * Sputum culture showed mixed janna and yeast. * Continue PO Azithromycin * His LDH was mildy elevated to 771 but his HIV is negative. * Continue methadone 90mg and and Clonzapam 0.5mg TID prn for anxiety. * Nicotine patch 21mg. * Diet: Regular * DVT Prophylaxis: SC Lovenox * Code: Full Code Problem List: 1. Asthma exacerbation Pain Ratin Pain Location: none Pain Goal: Remain pain free Pain Plan: none Tomorrow's Labs & Rationales: CBC, BEP
[2018-04-01 08:36] LABS: ABSOLUTE BASOPHIL COUNT 0 /CUMM (0.0-0.2); ABSOLUTE EOSINOPHIL COUNT 0 /CUMM (0.0-0.7); ABSOLUTE GRANULOCYTE CT 11.5 /CUMM (1.4-6.5); ABSOLUTE LYMPH COUNT 2.2 /CUMM (1.2-3.4); ABSOLUTE MONOCYTE COUNT 0.7 /CUMM (0.10-0.60); BASOPHIL % 0.2 % (0.0-2.0); EOSINOPHIL % 0.2 % (0-5); GRANULOCYTE % 79.7 % (42.2-75.2); HEMATOCRIT 37.6 % (42-52); MEAN CORPUSCULAR HGB 27.5 PG (27.0-31.0); MEAN CORPUSCULAR HGB CONC 33.6 G/DL (33.0-37.0); MEAN CORPUSCULAR VOLUME 81.9 FL (80.0-94.0); MEAN PLATELET VOLUME 7.3 FL (7.4-10.4); PLATELET COUNT 377 /CUMM (130-400); RBC DISTRIBUTION WIDTH 14.3 % (11.5-14.5); RED BLOOD CELL CT 4.59 /CUMM (4.70-6.10); WHITE BLOOD CELL COUNT 14.5 /CUMM (4.8-10.8)
--- NOTE | 2018-04-01 10:12 | PN- Pulmonary ---
Subjective HPI/Critical Care Issues: Patient continues to improve with diminished shortness of breath and oxygen requirements now 2 L Objective Current Medications: Current Medications Sig/Shelia Start time Last Medication Dose Route Stop Time Status Admin Albuterol Sulfate 3 ML EVERY 4 HRS/AWAKE 03/31 1200 AC 04/01 INH 0750 Albuterol Sulfate 3 ML Q4 03/28 1000 DC 03/31 INH 0759 Amlodipine Besylate 5 MG ONCE ONE 03/31 1645 DC 03/31 PO 03/31 1646 1727 Azithromycin 500 MG DAILY 04/01 900 AC 04/01 PO 0820 Azithromycin 500 MG 0100 03/29 0100 DC 03/31 Sodium Chloride 250 ML IV 0128 Budesonide/ 2 PUF BID 03/28 0226 AC 04/01 Formoterol Fumarate INH 0820 Calcium Carbonate 500 MG ONCE ONE 04/01 0530 DC 04/01 PO 04/01 0531 0642 Ceftriaxone Sodium 1,000 MG 0100 03/29 0100 DC 03/31 IV 0128 Clonazepam 0.5 MG TID 03/29 1400 AC 04/01 PO 04/05 1359 0820 Fluoxetine HCl 20 MG DAILY 03/28 09 AC 04/01 PO 0820 Heparin Sodium 5,000 UNIT Q8 03/28 06 AC 03/28 (Porcine) SC 0552 Ipratropium [place] 2.5 ML EVERY 4 HRS/AWAKE 03/31 1200 AC 04/01 INH 0750 Ipratropium [place] 2.5 ML Q4 03/28 1000 DC 03/31 INH 0759 Melatonin 5 MG AT BEDTIME PRN 03/29 0100 AC 03/31 PO 0137 Methadone HCl 90 MG DAILY 03/28 09 AC 04/01 PO 0820 Methylprednisolone 40 MG DAILY 04/02 900 AC IV Methylprednisolone 40 MG Q12 03/31 2100 DC 04/01 IV 0820 Methylprednisolone 40 MG Q8 03/30 1400 DC 03/31 IV 0510 Nicotine 21 MG 1700 03/29 1700 AC 03/31 TOP 1636 Vital Signs & I&O Last 24 Hrs of Vitals and I&O: Vital Signs Date Time Temp Pulse Resp B/P B/P Pulse O2 O2 Flow FiO2 Mean Ox Delivery Rate 04/01 08 95 Nasal 4.0L Cannula 04/01 075 95 Nasal 2.0L Cannula 04/01 0621 166/92 04/01 607 97.9 62 20 166/92 95 04/01 0000 Nasal 4.0L Cannula 03/31 2138 99.3 73 18 160/110 96 Nasal 4.0L Cannula 03/31 1830 74 154/102 03/31 1727 74 170/102 03/31 1640 74 170/102 03/31 1631 92 Nasal 4.0L Cannula 03/31 1501 99.4 64 20 170/104 96 Nasal Cannula 03/31 1500 66 158/114 Family chest shows clear lung aviles there are no wheezes heard cardiac exam shows normal S1 and S2 without murmurs Impression/Plan Impression/Plan Impression/Plan: 27-year-old with history of asthma admitted with acute hypoxic respiratory failure which is improving and bronchospasm which is improved associated with probable community acquired pneumonia Recommendations: Taper FiO2 with improved saturations. She IV steroids begin by mouth prednisone with slow taper. Complete course of antibiotics.
--- NOTE | 2018-04-01 10:51 | PN- Infect Dx ---
Subjective Subjective: This patient is a 27-year-old male with a left-sided pneumonia. Appears much better today. He denies any fevers chills nausea vomiting diarrhea or constipation. His oxygen requirement is now decreased to 2 L via nasal cannula. Review of Systems Comments: 12 point review of systems no positive findings Objective Last 24 Hrs of Vital Signs/I&O Vital Signs Date Time Temp Pulse Resp B/P B/P Pulse O2 O2 Flow FiO2 Mean Ox Delivery Rate 04/01 0800 95 Nasal 4.0L Cannula 04/01 0750 95 Nasal 2.0L Cannula 04/01 0621 166/92 04/01 0607 97.9 62 20 166/92 95 04/01 0000 Nasal 4.0L Cannula 03/31 2138 99.3 73 18 160/110 96 Nasal 4.0L Cannula 03/31 1830 74 154/102 03/31 1727 74 170/102 03/31 1640 74 170/102 03/31 1631 92 Nasal 4.0L Cannula 03/31 1501 99.4 64 20 170/104 96 Nasal Cannula 03/31 1500 66 158/114 Physical Exam Other Physical Findings: Mildly diaphoretic Awake alert oriented 3 Pupils equal and reactive to light and accommodation equal ocular motion Neck supple no JVD no lymphadenopathy Heart regular rate and rhythm S1-S2 Marked improvement in lung sounds from yesterday Abdomen soft nontender nondistended No neurologic dysfunction Results Last 24 Hours of Lab Results: Laboratory Tests 04/01 0659 Hematology CBC w Diff NO MAN DIFF REQ WBC (4.8 - 10.8 /CUMM) 14.5 H RBC (4.70 - 6.10 /CUMM) 4.59 L Hgb (14.0 - 18.0 G/DL) 12.6 L Hct (42 - 52 %) 37.6 L MCV (80.0 - 94.0 FL) 81.9 MCH (27.0 - 31.0 PG) 27.5 MCHC (33.0 - 37.0 G/DL) 33.6 RDW (11.5 - 14.5 %) 14.3 Plt Count (130 - 400 /CUMM) 377 MPV (7.4 - 10.4 FL) 7.3 L Gran % (42.2 - 75.2 %) 79.7 H Lymphocytes % (20.5 - 51.1 %) 15.3 L Monocytes % (1.7 - 9.3 %) 4.6 Eosinophils % (0 - 5 %) 0.2 Basophils % (0.0 - 2.0 %) 0.2 Absolute Granulocytes (1.4 - 6.5 /CUMM) 11.5 H Absolute Lymphocytes (1.2 - 3.4 /CUMM) 2.2 Absolute Monocytes (0.10 - 0.60 /CUMM) 0.7 H Absolute Eosinophils (0.0 - 0.7 /CUMM) 0 Absolute Basophils (0.0 - 0.2 /CUMM) 0 White blood cell count trending down Last 24 Hours of Mejia Results: Microbiology Date/Time Procedure - Status Source Growth 03/30 1600 Surveillance Culture - COMP UPPER RESP 03/29 1130 Respiratory Culture - COMP LOWER RESP YEAST 03/29 1130 Gram Stain - COMP LOWER RESP Recent Imaging Studies: No new radiologic studies Assessment/Plan ID Impression: This Patient is a 27-year-old male with an elevated white blood cell count ( trending down) on steroids who remains afebrile. Patient is on day 5 of ceftriaxone and azithromycin for asthma and pneumonia. He appears to be slowly improving. Requiring less supplementary oxygen. Suggestion: 1. Continue ceftriaxone 2. Discontinue azithromycin 3. Taper down O2 4. Will defer switch to oral antibiotics prior to discharge to Dr. Miller
--- NOTE | 2018-04-01 11:30 | PN- Att Addend ---
Attending Addendum Attending Brief Note Patient seen and examined. Plan of care discussed with the medical team and the patient. Available lab work and radiology test reports were reviewed. Patient feels better. He currently has cough with scant amount of sputum production. He is currently on 2 L oxygen by nasal cannula. He denies any chest pain and is difficult breathing has improved. Assessment 1. Acute Hypoxic Respiratory Failure 2. Pneumonia 3. Asthma Exacerbation 4. History of Opiate use now on Methadone Plan * Continue to taper oxygen as tolerated; consider checking her O2 level on room air with ambulation * Continue current antibiotics * Overall patient appears to be clinically improving; possible discharge home tomorrow Exam: General: Patient awake alert oriented without any distress CVS: S1 plus S2 without any murmur or gallops Chest: Few scattered crepitation without any wheeze. There is no respiratory distress. 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 and follows commands appropriately Extremities: No edema; no clubbing or cyanosis noted Current Medications Sig/Shelia Start time Last Medication Dose Route Stop Time Status Admin Albuterol Sulfate 3 ML EVERY 4 HRS/AWAKE 03/31 1200 AC 04/01 INH 1128 Amlodipine Besylate 5 MG ONCE ONE 03/31 1645 DC 03/31 PO 03/31 1646 1727 Azithromycin 500 MG DAILY 04/01 09 AC 04/01 PO 0820 Budesonide/ 2 PUF BID 03/28 0226 AC 04/01 Formoterol Fumarate INH 0820 Calcium Carbonate 500 MG ONCE ONE 04/01 0530 DC 04/01 PO 04/01 0531 0642 Clonazepam 0.5 MG TID 03/29 1400 AC 04/01 PO 04/05 1359 0820 Fluoxetine HCl 20 MG DAILY 03/28 0900 AC 04/01 PO 0820 Heparin Sodium 5,000 UNIT Q8 03/28 06 AC 03/28 (Porcine) SC 0552 Ipratropium [place] 2.5 ML EVERY 4 HRS/AWAKE 03/31 1200 AC 04/01 INH 1128 Melatonin 5 MG AT BEDTIME PRN 03/29 0100 AC 03/31 PO 0137 Methadone HCl 90 MG DAILY 03/28 0900 AC 04/01 PO 0820 Methylprednisolone 40 MG DAILY 04/02 09 AC IV Methylprednisolone 40 MG Q12 03/31 2100 DC 04/01 IV 0820 Nicotine 21 MG 1700 03/29 1700 AC 03/31 TOP 1636 Laboratory Tests 04/01 0659 Hematology CBC w Diff NO MAN DIFF REQ WBC (4.8 - 10.8 /CUMM) 14.5 H RBC (4.70 - 6.10 /CUMM) 4.59 L Hgb (14.0 - 18.0 G/DL) 12.6 L Hct (42 - 52 %) 37.6 L MCV (80.0 - 94.0 FL) 81.9 MCH (27.0 - 31.0 PG) 27.5 MCHC (33.0 - 37.0 G/DL) 33.6 RDW (11.5 - 14.5 %) 14.3 Plt Count (130 - 400 /CUMM) 377 MPV (7.4 - 10.4 FL) 7.3 L Gran % (42.2 - 75.2 %) 79.7 H Lymphocytes % (20.5 - 51.1 %) 15.3 L Monocytes % (1.7 - 9.3 %) 4.6 Eosinophils % (0 - 5 %) 0.2 Basophils % (0.0 - 2.0 %) 0.2 Absolute Granulocytes (1.4 - 6.5 /CUMM) 11.5 H Absolute Lymphocytes (1.2 - 3.4 /CUMM) 2.2 Absolute Monocytes (0.10 - 0.60 /CUMM) 0.7 H Absolute Eosinophils (0.0 - 0.7 /CUMM) 0 Absolute Basophils (0.0 - 0.2 /CUMM) 0 Vital Signs Date Time Temp Pulse Resp B/P B/P Pulse O2 O2 Flow FiO2 Mean Ox Delivery Rate 04/01 0800 95 Nasal 4.0L Cannula 04/01 0750 95 Nasal 2.0L Cannula 04/01 0621 166/92 04/01 0607 97.9 62 20 166/92 95 04/01 0000 Nasal 4.0L Cannula 03/31 2138 99.3 73 18 160/110 96 Nasal 4.0L Cannula 03/31 1830 74 154/102 09 1727 74 170/102 03/31 1640 74 170/102 03/31 1631 92 Nasal 4.0L Cannula 03/31 1501 99.4 64 20 170/104 96 Nasal Cannula 03/31 1500 66 158/114
[2018-04-01 14:43] VITALS: BP 140/84
[2018-04-01 21:47] VITALS: BP 120/64
[2018-04-02 06:13] VITALS: BP 126/86
--- NOTE | 2018-04-02 07:13 | PN- Housestaff ---
Alva PIERCE,[facility] 04/02/18 0712: Subjective Follow-up For: Pneumonia Asthma Exacerbation Subjective: patient seen and examined. Reports feeling much better. His breathing is improved. Wishes to be discharged today. Review of Systems Constitutional: Reports: no symptoms. Objective Last 24 Hrs of Vital Signs/I&O Vital Signs Date Time Temp Pulse Resp B/P B/P Pulse O2 O2 Flow FiO2 Mean Ox Delivery Rate 04/02 613 98.1 78 20 126/86 95 04/02 0000 Nasal 2.0L Cannula 04/01 2147 98.4 89 20 120/64 91 Room Air 04/01 1631 98 Nasal 2.0L Cannula 04/01 1600 96 Nasal 2.0L Cannula 04/01 1443 98.8 79 20 140/84 96 Nasal Cannula 04/01 0800 95 Nasal 4.0L Cannula 04/01 0750 95 Nasal 2.0L Cannula Intake & Output 04/02 0800 04/02 0000 04/01 1600 Intake Total 860 Output Total Balance 860 Intake, IV 20 Intake, Oral 840 Physical Exam General Appearance: Alert, Oriented X3, Cooperative, Mild Distress Skin: No Rashes, No Breakdown Skin Temp/Moisture Exam: Warm/Dry Sepsis Skin Exam (color): Normal for Ethnicity Cardiovascular: Normal S1, Normal S2, systolic murmur Lungs: Clear to Auscultation, Normal Air Movement Abdomen: Soft, No Tenderness Neurological: Normal Speech Extremities: No Edema Last 24 Hrs of Lab/Mejia Results Last 24 Hrs of Labs/Mics: Laboratory Tests 04/02/18 0600: Anion Gap 15, Estimated GFR > 60, BUN/Creatinine Ratio 30.0 H, CBC w Diff MAN DIFF ORDERED, RBC 4.82, MCV 82.4, MCH 27.6, MCHC 33.5, RDW 14.1, MPV 7.3 L, Gran % 72.4, Lymphocytes % 21.4, Monocytes % 5.4, Eosinophils % 0.5, Basophils % 0.3, Absolute Granulocytes 13.1 H, Segmented Neutrophils 67, Band Neutrophils 1 , Absolute Lymphocytes 3.9 H, Lymphocytes 25, Monocytes 6, Absolute Monocytes 1.0 H, Eosinophils 1, Absolute Eosinophils 0.1, Absolute Basophils 0, Platelet Estimate VERIFIED BY SMEAR, Normocytic RBCs VERIFIED, Normochromic RBCs VERIFIED Assessment/Plan Assessment: 27-year-old male with a PMH significant for pneumonia, asthma, ADHD, bicuspid aortic valve, IV drug abuse, opiate use currently on methadone (follows at [facility]), who presented to ED complaining of a three-day history of worsening productive cough and dyspnea. Assessment: 1. Acute Hypoxic Respiratory Failure 2. Pneumonia 3. Asthma Exacerbation 4. History of Opiate use now on Methadone Plan: * Off oxygen today. His ambulatory saturations are in acceptable range. * Start Prednisone 40mg today with taper over outpatient . * Stable to be discharged today. * Discontinue antibiotics. * Continue methadone 90mg and and Clonzapam 0.5mg TID prn for anxiety. * Nicotine patch 21mg. * Diet: Regular * DVT Prophylaxis: SC Lovenox * Code: Full Code Problem List: 1. Pneumonia Pain Ratin Pain Location: none Pain Goal: Remain pain free Pain Plan: none Tomorrow's Labs & Rationales: none Tom PIERCE,Elvie 04/02/18 1018: Attending MD Review Statement Attending Statement Attending MD Statement: examined this patient, discuss w/resident/PA/DOCTOR OF OSTEOPATHY, agreed w/resident/PA/DOCTOR OF OSTEOPATHY, reviewed EMR data (avail), discussed with nursing, discussed with case mgmt, amended to note Attending Assessment/Plan: Patient seen and examined, overall doing much better. Breathing is improved. Oxygenation has improved. O2 sats remained 90 or above. Patient is medically stable for discharge home on prednisone taper. He has completed total of 5 day course of antibiotics. He will be continued on his albuterol. Patient be referred to a primary care doctor and a credit rating inspector. He will be discharged home today. Patient asked for for Xanax. We checked the [facility] website and found that he was prescribed 60 pills of Klonopin on March 15. He will not be given any further benzodiazepines at this time doctor and a credit rating inspector. He will be discharged home today. Patient asked for for Xanax. We checked the [facility] website and found that he was prescribed 60 pills of Klonopin on March 15. He will not be given any further benzodiazepines at this time
[2018-04-02 07:48] LABS: ABSOLUTE BASOPHIL COUNT 0 /CUMM (0.0-0.2); ABSOLUTE EOSINOPHIL COUNT 0.1 /CUMM (0.0-0.7); ABSOLUTE GRANULOCYTE CT 13.1 /CUMM (1.4-6.5); ABSOLUTE LYMPH COUNT 3.9 /CUMM (1.2-3.4); BASOPHIL % 0.3 % (0.0-2.0); EOSINOPHIL % 0.5 % (0-5); GRANULOCYTE % 72.4 % (42.2-75.2); HEMATOCRIT 39.8 % (42-52); MEAN CORPUSCULAR HGB 27.6 PG (27.0-31.0); MEAN CORPUSCULAR HGB CONC 33.5 G/DL (33.0-37.0); MEAN CORPUSCULAR VOLUME 82.4 FL (80.0-94.0); MEAN PLATELET VOLUME 7.3 FL (7.4-10.4); PLATELET COUNT 412 /CUMM (130-400); RBC DISTRIBUTION WIDTH 14.1 % (11.5-14.5); RED BLOOD CELL CT 4.82 /CUMM (4.70-6.10); WHITE BLOOD CELL COUNT 18.1 /CUMM (4.8-10.8)
--- NOTE | 2018-04-02 08:06 | Discharge Summary ---
Visit Information Visit Dates Admission Date: 03/28/18 Discharge Date: 04/02/18 Hospital Course Course Attending Physician: Elvie Santos MD Primary Care Physician: Patient Has No Primary Care Dr Hospital Course: Mr Yang is a 27-year-old male with a PMH significant for pneumonia, asthma, ADHD, bicuspid aortic valve, IV drug abuse, opiate use currently on methadone ( follows at [facility]), who presented to ED complaining of a three-day history of worsening productive cough and dyspnea. Below is a list of conditions he was seen and treated for: 1. Acute Hypoxic Respiratory Failure 2. Pneumonia 3. Asthma Exacerbation On admission, he was hypoxic. His imaging showed some developing consolidation. His physical exam had significant rhonchi and wheezing. He was started on supplemental oxygen along with TRC/nebs as needed. He was also started on IV Ceftriaxone and Azithromycin. IV steroids were also added to the regimen. Further imaging with Chest CTA showed no evidence of pulmonary emboli but showed nonspecific patchy multifocal groundglass opacification. For initial 3 days he had high oxygen requirement, requiring a Ventimask. Patient responded slowly but well to treatment. His oxygen was tapered off each day as tolerated and his steroids were gradually tapered down as well. He received a total of 7 day course of antibiotics. At the time of discharge his SoluMedrol was switched to Prednisone to be tapered off as an outpatient. His resting and ambulatory saturations were checked off oxygen and found to be in acceptable range. He was discharged in stable disposition with recommendations to follow up a PCP and a energy audit advisor within a week of discharge. Allergies: Coded Allergies: No Known Allergies (03/27/18) Significant Procedures: SERVICE DATE: 03/28/18 EXAM TYPE: RAD - XRY-PORTABLE CHEST XRAY FINDINGS: The cardiac silhouette is not enlarged. The mediastinal and hilar contours are unremarkable. There are neither pleural effusions nor pneumothoraces. There are no consolidations. The osseous structures are unremarkable. IMPRESSION: No evidence for acute disease. SERVICE DATE: 03/28/18- EXAM TYPE: CAT - CTA CHEST FINDINGS: The heart is of normal size. There is no pericardial effusion. The great vessels are unremarkable. Specifically, there is no pulmonary arterial filling defect. There is no CT evidence for pulmonary embolism. There are no chest wall masses. Review of lung windows demonstrates that there are neither pleural effusions nor pneumothoraces. Throughout both lungs, there is patchy multifocal groundglass opacification. There is inferior left upper lobe and medial segment right middle lobe atelectasis. Limited evaluation of the upper abdomen demonstrates that the liver is of normal size and attenuation without focal lesions. Normal adrenal glands are identified. IMPRESSION: No CT evidence for pulmonary embolism. Nonspecific patchy multifocal groundglass opacification. Consider infectious and inflammatory processes. SERVICE DATE: 03/27/18 EXAM TYPE: RAD - XRY-PORTABLE CHEST XRAY FINDINGS: Lung volumes are symmetric. There is a patchy and somewhat curvilinear region of opacity at the left lung base, new from prior. The right lung is clear. No evidence of pneumothorax, pleural effusion, or pulmonary edema. The cardiomediastinal contour is unremarkable. No acute osseous findings are seen. IMPRESSION: Patchy and curvilinear left basilar opacity may reflect atelectasis or developing consolidation in the proper clinical setting. Short-term radiographic follow-up may be helpful. Disposition Summary Disposition Principal Diagnosis: Acute Hypoxic Respiratory Failure Asthma Exacerbation Pneumonia Additional Diagnosis: asthma ADHD bicuspid aortic valve Discharge Disposition: home or self care Discharge Instructions General Discharge Information Code Status: Full Code Patient's Diet: Regular Patient's Activity: As tolerated Follow-Up Instructions/Appts: Please follow up with your PCP within one week of discharge. Medications at Discharge Discharge Medications: Continue taking these medications: Dextroamphetamine/Amphetamine (Adderall XR 30 MG Capsule) 30 MG CAP.ER.24H 1 Capsule ORAL Every Morning Qty = 5 Clonazepam (Klonopin) 0.5 MG TABLET 1 Tablet ORAL 2 x Daily as needed as needed for Anxiety Qty = 10 Comments: LAST GIVEN 04/02/18 @ 0930 Albuterol Sulfate (Proair Hfa) 90 MCG HFA.AER.AD 2 Puff Inhale through mouth EVERY 4-6 HOURS NEEDED as needed for Asthma Exacerbation Qty = 1 Budesonide/Formoterol Fumarate (Symbicort 80-4.5 Mcg Inhaler) 80 MCG-4.5 MCG/ ACTUATION HFA.AER.AD 2 Puff Inhale through mouth TWICE DAILY Qty = 10.2 Comments: LAST GIVEN 04/02/18 @ 0930 Methadone Hydrochloride (Methadone HCl) 10 MG TABLET 90 Milligram ORAL DAILY Comments: LAST GIVEN 04/02/18 @ 0930 Fluoxetine HCl (Fluoxetine HCl) 20 MG CAPSULE 1 Capsule ORAL DAILY Qty = 30 Comments: LAST GIVEN 04/02/18 @ 0930 Start taking the following new medications: Nicotine (Nicotine Patch) 21 MG/24 HOUR PATCH.TD24 1 Patch On the skin DAILY Qty = 7 No Refills Comments: LAST GIVEN 04/01/18 @ 1700 Prednisone (Prednisone) 10 MG TABLET 1 Tablet ORAL DAILY Qty = 26 No Refills Comments: Please take 4 tablets of Prednisone 10mg on 04/03/18 and 04/04/18 then take 3 tablets of Prednisone 10mg on 04/05/18 to 04/07/18 then take 2 tablets of Prednisone 10mg on 04/08/18 to 04/10/18 LAST GIVEN 04/02/18 @ 0930 then take 1 tablet of Prednisone 10mg on 04/11/18 to 04/13/18 Copies To: Kaylee PIERCE,Noman Turner
[2018-04-02] MEDS ORDERED: PREDNISONE10 M2 PO ×2 (09:53→10:00)
[2018-04-02] MEDS ORDERED: NICOTINE PATCH1 EAC3 TOP ×2 (09:53→10:00)
--- NOTE | 2018-04-02 10:01 | PN- Student ---
Subjective Subjective: No acute events overnight. Patient resting in bed. Feeling better and ready to go home. Denied SOB, chest pain, abdominal pain, nausea/vomiting. Objective Objective: Vital Signs Date Time Temp Pulse Resp B/P B/P Pulse O2 O2 Flow FiO2 Mean Ox Delivery Rate 04/02 0912 102 22 89 Room Air 04/02 0805 97 Nasal 1.0L Cannula 04/02 0613 98.1 78 20 126/86 95 04/02 0000 Nasal 2.0L Cannula 04/01 2147 98.4 89 20 120/64 91 Room Air 04/01 1631 98 Nasal 2.0L Cannula 04/01 1600 96 Nasal 2.0L Cannula 04/01 1443 98.8 79 20 140/84 96 Nasal Cannula PE: General:patient resting in bed lert and oriented. HEENT: NCAT, anicteric sclera CVS: regular rate and rythm, normal S1 and S2, soft 2/6 systolic mumur best heard at the base of the heart Lungs: sysmetrical chets expansion, expiratory scatted wheeze (improving) and mild continuous rhonchi that cleared with cough. Abdomen: presented bowel sounds, soft, nontender, nondistended Extremities: palpable pulses, no edema Results Results: Laboratory Tests 04/02/18 0600: Anion Gap 15, Estimated GFR > 60, BUN/Creatinine Ratio 30.0 H, CBC w Diff MAN DIFF ORDERED, RBC 4.82, MCV 82.4, MCH 27.6, MCHC 33.5, RDW 14.1, MPV 7.3 L, Gran % 72.4, Lymphocytes % 21.4, Monocytes % 5.4, Eosinophils % 0.5, Basophils % 0.3, Absolute Granulocytes 13.1 H, Segmented Neutrophils 67, Band Neutrophils 1 , Absolute Lymphocytes 3.9 H, Lymphocytes 25, Monocytes 6, Absolute Monocytes 1.0 H, Eosinophils 1, Absolute Eosinophils 0.1, Absolute Basophils 0, Platelet Estimate VERIFIED BY SMEAR, Normocytic RBCs VERIFIED, Normochromic RBCs VERIFIED Assessment/Plan Assessment: 27 y/o smoker M with a PMH significant for pneumonia, asthma, ADHD, bicuspid aortic valve, IV drug abuse, opiate use currently on methadone (follows at [facility]), who presented to ED complaining of worsening productive cough and dyspnea of three days prior to admission. CTA showed no evidence for pulmonary embolism and nonspecific patchy multifocal groundglass opacification. At this point the etiology of the opacifications are uncertain. Infectious vs. inflammatory processes are in ther ddx. Patient have not experience any fever, and leukocytosis is though to be reactive to steroids (since he did not presented with leukocytosis at the time of admisison). Based on this, asthma exacerbation is more likely. HIV negative, LDH is mildy elevated to 771. Lower Gram stain showing mixed janna. Negative legionella and negative Strep, pneumo. Patient saturating >90 at RA and around 89 with ambulation tht come back to up 90's after resting less than 1min. Patient is stable to be discharge today. Patient will follow with PCP (that will be provided) and methadone clinic. Patient complete a course of abx and will not require more abx to go home. Plan: Acute Hypoxic Respiratory Failure probably 2/2 Asthma Exacerbation: -PO solumedrol 40mg daily -Atrovent 2.5mL Q4 and Proventil 3mL Q4 -Pulmonary toilet -Cont. methadone 90mg -Cont. current clonazepam regiment -Cont. Nicotine patch 21mg. Diet: Regular DVT Prophylaxis: SC Lovenox Code: Full Code DVT Prophylaxis: SC Lovenox Code: Full Code
--- NOTE | 2018-04-02 11:27 | PN- Infect Dx ---
Subjective Subjective: Afebrile on steroids. He feels well with no complaints. Objective Last 24 Hrs of Vital Signs/I&O Vital Signs Date Time Temp Pulse Resp B/P B/P Pulse O2 O2 Flow FiO2 Mean Ox Delivery Rate 04/02 0912 102 22 89 Room Air 04/02 0805 97 Nasal 1.0L Cannula 04/02 0800 90 Room Air 04/02 0613 98.1 78 20 126/86 95 04/02 0000 Nasal 2.0L Cannula 04/01 2147 98.4 89 20 120/64 91 Room Air 04/01 1631 98 Nasal 2.0L Cannula 04/01 1600 96 Nasal 2.0L Cannula 04/01 1443 98.8 79 20 140/84 96 Nasal Cannula Physical Exam Other Physical Findings: He appears comfortable in no acute distress on room air Lungs bilateral inspiratory wheezes in the upper lung aviles, with no rhonchi Heart regular rhythm with no murmur Extremities no cyanosis, clubbing or edema Results Last 24 Hours of Lab Results: Laboratory Tests 04/02 0600 Chemistry Sodium (137 - 145 mmol/L) 143 Potassium (3.5 - 5.1 mmol/L) 3.9 Chloride (98 - 107 mmol/L) 99 Carbon Dioxide (22 - 30 mmol/L) 29 Anion Gap (5 - 16) 15 BUN (9 - 20 mg/dL) 21 H Creatinine (0.7 - 1.2 mg/dL) 0.7 Estimated GFR (>60 ml/min) > 60 BUN/Creatinine Ratio (7 - 25 %) 30.0 H Hematology CBC w Diff MAN DIFF ORDERED WBC (4.8 - 10.8 /CUMM) 18.1 H RBC (4.70 - 6.10 /CUMM) 4.82 Hgb (14.0 - 18.0 G/DL) 13.3 L Hct (42 - 52 %) 39.8 L MCV (80.0 - 94.0 FL) 82.4 MCH (27.0 - 31.0 PG) 27.6 MCHC (33.0 - 37.0 G/DL) 33.5 RDW (11.5 - 14.5 %) 14.1 Plt Count (130 - 400 /CUMM) 412 H MPV (7.4 - 10.4 FL) 7.3 L Gran % (42.2 - 75.2 %) 72.4 Lymphocytes % (20.5 - 51.1 %) 21.4 Monocytes % (1.7 - 9.3 %) 5.4 Eosinophils % (0 - 5 %) 0.5 Basophils % (0.0 - 2.0 %) 0.3 Absolute Granulocytes (1.4 - 6.5 /CUMM) 13.1 H Segmented Neutrophils (42.2 - 75.2 %) 67 Band Neutrophils (0.0 - 5.0 %) 1 Absolute Lymphocytes (1.2 - 3.4 /CUMM) 3.9 H Lymphocytes (20.5 - 51.1 %) 25 Monocytes (1.7 - 9.3 %) 6 Absolute Monocytes (0.10 - 0.60 /CUMM) 1.0 H Eosinophils (0 - 5.0 %) 1 Absolute Eosinophils (0.0 - 0.7 /CUMM) 0.1 Absolute Basophils (0.0 - 0.2 /CUMM) 0 Platelet Estimate (ADEQUATE) VERIFIED BY SMEAR Normocytic RBCs VERIFIED Normochromic RBCs VERIFIED Last 24 Hours of Mjeia Results: Sputum culture March 29 positive for mixed janna with scant growth of yeast Assessment/Plan ID Impression: Doing well, with significant improvement in his respiratory status, now on room air, with temperatures remaining normal (on steroids) but with a persistent leukocytosis, likely secondary to the steroids. He is now on Ceftriaxone alone, Day 6 of treatment for an exacerbation of asthma/ possible pneumonia and feel that he has received an adequate course of antibiotics at this point. Suggestion: 1. Discontinue Ceftriaxone and follow off antibiotics
== END 2018-04-02 12:31 | DRG 133 ==
LOC: ERH 22:03 → 2NB 03-28 01:18 → ERHI 03-28 01:18 → ENRESERV 03-28 02:54 → 2NB 03-28 03:22 → ENPENDDIS 04-02 10:02 → 2NB 04-02 12:31
PROVIDERS: Dermatology; Internal Medicine; Internal Medicine Endocrinology, Diabetes & Metabolism
DX: J96.01 Acute respiratory failure with hypoxia (principal); J18.9 Pneumonia, unspecified organism; J45.901 Unspecified asthma with (acute) exacerbation; F11.20 Opioid dependence, uncomplicated; F90.9 Attention-deficit hyperactivity disorder, unspecified type; Q23.1 Congenital insufficiency of aortic valve; F41.9 Anxiety disorder, unspecified; Z79.51 Long term (current) use of inhaled steroids; F17.210 Nicotine dependence, cigarettes, uncomplicated
CPT/HCPCS: 2NBP; 36592; 71045; 80307; 82436; 86803; 87040; 87070; 87389; 87449; 87450; J0456; J0696; J1644; J2920; J3490; J7040

== ENCOUNTER 2018-06-16 15:06 | Inpatient (IN) | payer OTHER ==
[~2018-06-16] VITALS: Ht 170.2 cm; Wt 88.2 kg
[~2018-06-16 15:06] MED LIST changes: +FLUOXETINE HCL20 M2 PO; +METHADONE HCL10 M1 PO; +PREDNISONE10 M2 PO
[2018-06-16 15:33] LABS: ABSOLUTE BASOPHIL COUNT 0 /CUMM (0.0-0.2); ABSOLUTE EOSINOPHIL COUNT 0.6 /CUMM (0.0-0.7); ABSOLUTE GRANULOCYTE CT 10.5 /CUMM (1.4-6.5); ABSOLUTE LYMPH COUNT 2.3 /CUMM (1.2-3.4); ABSOLUTE MONOCYTE COUNT 0.7 /CUMM (0.10-0.60); BASOPHIL % 0.2 % (0.0-2.0); EOSINOPHIL % 4.3 % (0-5); GRANULOCYTE % 74.2 % (42.2-75.2); HEMATOCRIT 40.3 % (42-52); MEAN CORPUSCULAR HGB 27.4 PG (27.0-31.0); MEAN CORPUSCULAR HGB CONC 33.7 G/DL (33.0-37.0); MEAN CORPUSCULAR VOLUME 81.2 FL (80.0-94.0); MEAN PLATELET VOLUME 6.9 FL (7.4-10.4); PLATELET COUNT 346 /CUMM (130-400); RBC DISTRIBUTION WIDTH 15.1 % (11.5-14.5); RED BLOOD CELL CT 4.97 /CUMM (4.70-6.10); WHITE BLOOD CELL COUNT 14.1 /CUMM (4.8-10.8)
--- NOTE | 2018-06-16 15:45 | ED GENERAL ADULT ---
History of Present Illness General Chief Complaint: Wheezing/Asthma Stated Complaint: ASTHMA Source: patient Exam Limitations: no limitations Vital Signs & Intake/Output Vital Signs & Intake/Output Vital Signs Date Time Temp Pulse Resp B/P B/P Pulse O2 O2 Flow FiO2 Mean Ox Delivery Rate 06/16 2226 Venti Mask 55% 06/16 2142 99.0 90 20 124/76 96 Venti Mask 06/16 1941 94 Venti Mask 55% 06/16 1731 93 20 129/60 90 06/16 1720 92 Venti Mask 55% 06/16 1538 100 Non 100% ReBreather 06/16 1538 98 Non 100% ReBreather 06/16 1509 98.5 112 24 130/80 88 Room Air Allergies Coded Allergies: No Known Allergies (03/27/18) Reconcile Medications Albuterol Sulfate 2.5 MG/3 ML (0.083 %) VIAL.NEB 1 Vial INH/JACQUE AD PRN ASTHMA (Reported) Albuterol Sulfate (Proair Hfa) 90 MCG HFA.AER.AD 2 PUF INH Q4-6 PRN PRN Asthma Exacerbation Alprazolam 0.5 MG TABLET 1 TAB PO BID ANXIETY (Reported) Dextroamphetamine/Amphetamine (Adderall XR 30 MG Capsule) 30 MG CAP.ER.24H 2 CAP PO DAILY ADHD (Reported) Fluoxetine HCl 10 MG CAPSULE 1 CAP PO DAILY MENTAL HEALTH (Reported) Methadone Hydrochloride (Methadone HCl) 10 MG TABLET 85 MG PO DAILY WITHDRAWAL (Reported) Nicotine (Nicotine Patch) 21 MG/24 HOUR PATCH.TD24 1 PAT TOP DAILY Smoking Cessation Triage Note: RECEIVED 27 YO MALE WITH HX OF ASTHMA, C/O WORSENING DIFFICULTY BREATHING AND WHEEZING X ONE MONTH, BECOMING PROGRESSIVELY WORSE. PT SEEN IN URGENT CARE TWICE IN THE LAST MONTH. INSP AND EXP WHEEZES NOTED. O2 SATS 88%, PT TREMLOUS, PT HAD ALBUTEROL INHALER ON WAY TO ED AND BREATHING TREATMENT AT HOME. MODERATE RESP DIFFICULTY NOTED. Triage Nurses Notes Reviewed? yes Onset: Gradual Duration: week(s): Timing: recent history Severity: moderate Severity Numbers: 8 Associated Symptoms: cough HPI: Patient is a 27-year-old male with a past medical history of asthma, anxiety, depression, and ADHD. Patient states she has been sick for the last 3-4 weeks with shortness of breath cough and wheezing. He was brought in by his mother but is currently unaccompanied. He states he was admitted to the hospital a month ago for pneumonia and has been getting steroids from different walk-in clinics in recent weeks with some relief. He is currently taking Adderall, Xanax, Prozac, albuterol inhaler, and methadone. He denies fever nausea vomiting abdominal pain diarrhea constipation or recent drug use. He is a 5- pack-year smoker and does not drink alcohol Past History Travel History Traveled to [place] past 21 day No Medical History Any Pertinent Medical History? 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 No Review of Systems Review of Systems Constitutional: Reports: malaise, weakness. Denies: chills, diaphoresis, fever. EENTM: Denies: blurred vision, double vision, visual changes, epistaxis. Respiratory: Reports: cough, short of breath, sputum production, wheezing. Cardiovascular: Denies: chest pain, palpitations. GI: Denies: abdominal pain, constipation, diarrhea, distention, nausea, vomiting. Neurological/Psychological: Reports: anxiety, depressed. Physical Exam Physical Exam General Appearance: alert, awake, anxious, moderate distress Head: atraumatic, normal appearance Eyes: Bilateral: normal appearance, PERRL, EOMI. Ears, Nose, Throat: normal pharynx, normal ENT inspection Neck: normal inspection, supple, full range of motion Respiratory: stridor, wheezing Cardiovascular: regular rate/rhythm Gastrointestinal: soft, non-tender, no organomegaly Neurologic/Psych: awake, alert, oriented x 3 Core Measures ACS in differential dx? Yes CVA/TIA Diagnosis: No Sepsis Present: No Sepsis Focused Exam Completed? Yes Progress Differential Diagnoses I considered the following diagnoses in my evaluation of the patient: Asthma exacerbation, pneumonia, acute bronchitis, PE, sepsis, ACS, Plan of Care: Orders Procedure Date/time Status Regular Diet 06/17 B Active CBC WITHOUT DIFFERENTIAL 06/17 600 Active BASIC ELECTROLYTES PLUS BUN&CR 06/17 600 Active LOWER RESPIRATORY CULTURE 06/16 2240 Active Weight 06/16 2212 Active Vital Signs 06/16 2212 Active Teach/Educate 06/16 2212 Active Pain Treatment and Response 06/16 2212 Active Nutritional Intake, Monitor 06/16 2212 Active Isolation 06/16 2212 Active Intake & Output 06/16 2212 Active Patient Care Conference 06/16 2212 Active Activity/Ambulation 06/16 2212 Active OXYGEN SETUP (GEN) 06/16 2200 Complete TRC EVALUATION (GEN) 06/16 2150 Active Pathway - chart 06/16 2150 Active House Staff 06/16 2150 Active Patient Data 06/16 2150 Active Code Status 06/16 2150 Active Patient Data 06/16 2041 Active Misc Message 06/16 2012 Active ED Holding Orders 06/16 2012 Active Admit to inpatient 06/16 2012 Active Vital Signs 06/16 2012 Active Code Status 06/16 2012 Complete Add-on Test (ER Only) 06/16 1658 Active BLOOD CULTURE 06/16 1622 Active Intake & Output 06/16 1538 Active LACTIC ACID 06/16 1528 Complete TROPONIN LEVEL 06/16 1515 Complete COMPREHENSIVE METABOLIC PANEL 06/16 1515 Complete CBC WITHOUT DIFFERENTIAL 06/16 1515 Complete EKG 06/16 1515 Active VTE Mechanical Prophylaxis 06/16 UNK Active Vital Signs 06/16 UNK Complete Activity/Ambulation 06/16 UNK Active Current Medications Sig/Shelia Start time Last Medication Dose Stop Time Status Admin Enoxaparin Sodium 40 MG DAILY 06/17 900 AC (Lovenox) Fluoxetine HCl 10 MG DAILY 06/17 900 AC (Prozac) Methadone HCl 80 MG DAILY 06/17 900 AC (Dolophine) Methadone HCl 5 MG DAILY 06/17 900 AC (Dolophine) Nicotine 21 MG DAILY 06/17 900 AC (Nicoderm) Acetaminophen 650 MG Q6P PRN 06/16 2200 AC (Tylenol) Albuterol Sulfate 2 PUF Q4-6 PRN PRN 06/16 2200 AC (Ventolin) Methylprednisolone 40 MG Q8 06/16 2200 AC 06/16 (Solumedrol) 224 Alprazolam 0.5 MG BID 06/16 2151 AC 06/16 (Xanax) 06/23 2150 2219 Albuterol Sulfate 3 ML Q4H PRN 06/16 1700 06/16 (Proventil) 1720 Laboratory Tests 06/16/18 1528: Anion Gap 9, Estimated GFR > 60, BUN/Creatinine Ratio 17.1, Glucose 107 H, Lactic Acid 1.5, Calcium 9.5, Total Bilirubin 0.6, AST 25, ALT 29, Alkaline Phosphatase 77, Troponin I < 0.01, Total Protein 7.0, Albumin 4.3, Globulin 2.7, Albumin/Globulin Ratio 1.6, CBC w Diff NO MAN DIFF REQ, RBC 4.97, MCV 81.2, MCH 27.4, MCHC 33.7, RDW 15.1 H, MPV 6.9 L, Gran % 74.2, Lymphocytes % 16.3 L, Monocytes % 5.0, Eosinophils % 4.3, Basophils % 0.2, Absolute Granulocytes 10.5 H, Absolute Lymphocytes 2.3, Absolute Monocytes 0.7 H, Absolute Eosinophils 0.6 , Absolute Basophils 0 Microbiology 06/16 2240 LOWER RESP: Respiratory Culture - ORD 06/16 2240 LOWER RESP: Gram Stain - ORD 06/16 2101 BLOOD: Blood Culture - RECD 06/16 2053 BLOOD: Blood Culture - RECD Patient presented with an O2 sat in the mid 80s upon arrival in triage, pulse of 112 bpm, respiratory rate of 24, with severe wheezing. Patient improved with oxygen and DuoNeb 2 upon arrival. CBC reveale an increased white count to 14.1. Chest x-ray read as normal with no patchy or consolidative infiltrate. Patient given another Duo-Neb tx at 19:40. With little progress and O2 sat bouncing between 88-98% we will consult hospitalist for admission. Peter Ferrer MD was notified and he agrees with this plan. Initial ED EKG: normal QRS complex, rate (slight tachycardia) Departure Departure Disposition: OTHER GENERAL HOSPITAL (ACUTE) Condition: Stable Clinical Impression Primary Impression: Asthma exacerbation Referrals: Patient Has No Primary Care Dr (PCP/Family) Departure Forms: Customer Survey General Discharge Information Admission Note Spoke With: Karina PIERCE,Garth Documentation of Exam: Documentation of any treatments & extenuating circumstances including Concerns Regarding Discharge (functional status, medication knowledge or non-compliance, living conditions, etc.) that warrant an admission rather than observation: [ Patient's a 27-year-old male with a history of uncontrolled asthma, anxiety, depression, ADHD, and drug abuse. Patient presented with O2 saturation in the mid 80s respiratory rate of 24 and pulse of 112. He has an elevated white count of 14.1K. after multiple doses of methylprednisolone as well as dual nebs the patient was unable to wean off oxygen without de-satting. Hospitalist Dr. Collins was consulted for admission] Critical Care Note Critical Care Note Critical Care Time: non-applicable
--- NOTE | 2018-06-16 16:40 | RADIOLOGY REPORT ---
EXAMINATION: XR CHEST CLINICAL INFORMATION: Dysmenorrhea these in. COMPARISON: CT chest 04/07/2018 and a chest x-ray 03/28/2018 TECHNIQUE: 2 views of the chest were obtained. FINDINGS: No significant abnormality is noted involving the heart, lungs, mediastinum, bony thorax or soft tissues. IMPRESSION: Unremarkable chest examination. No change.
[2018-06-16] MEDS ORDERED: ALPRAZOLAM0.5 M4 PO (18:22)
[2018-06-16] MEDS ORDERED: ALBUTEROL2.5 MG/3 M INH/SOL (18:23)
[2018-06-16] MEDS ORDERED: ADDERALL XR 3030 MG PO (18:23)
[2018-06-16] MEDS ORDERED: FLUOXETINE HCL10 M2 PO (18:24)
--- NOTE | 2018-06-16 21:06 | History & Physical ---
Shara Sequeira 06/16/18 2106: General Information and HPI MD Statement: I have seen and personally examined MANOLO ADORNO and documented this H&P. The patient is a 27 year old M who presented with a patient stated chief complaint of []. Source of Information: patient Exam Limitations: no limitations History of Present Illness: 27 year old male with PMH asthma, bicuspid aortic valve, anxiety, depression, substance abuse on methadone, ADHD presenting with acute asthma exacerbation. Patient states he has been progressively SOB for the past 3-4 weeks with associated productive cough, wheezing, and increased need to inhalers/breathing treatments. He states he was recently admitted to the hospital in March for asthma exacerbation and PNA. He was treated with abx and steroids. He states the past 1-2 days he has become significantly SOB and finally came to the ED today. He states he has been sleeping in an upright position and giving himself breathing treatments during the night. He is using all his inhaler medications with minimal relief. He states he has rib pain from coughing, but otherwise denies fever, chills, n/v/d/, chest pain, abdominal pain. He has experienced some sweating, but he attributes this to his recent decrease in methadone dosing from 90mg to 85mg daily. Allergies/Medications Allergies: Coded Allergies: No Known Allergies (03/27/18) Home Med list Albuterol Sulfate 2.5 MG/3 ML (0.083 %) VIAL.NEB 1 Vial INH/JACQUE AD PRN ASTHMA (Reported) Albuterol Sulfate (Proair Hfa) 90 MCG HFA.AER.AD 2 PUF INH Q4-6 PRN PRN Asthma Exacerbation Alprazolam 0.5 MG TABLET 1 TAB PO BID ANXIETY (Reported) Dextroamphetamine/Amphetamine (Adderall XR 30 MG Capsule) 30 MG CAP.ER.24H 2 CAP PO DAILY ADHD (Reported) Fluoxetine HCl 10 MG CAPSULE 1 CAP PO DAILY MENTAL HEALTH (Reported) Methadone Hydrochloride (Methadone HCl) 10 MG TABLET 85 MG PO DAILY WITHDRAWAL (Reported) Nicotine (Nicotine Patch) 21 MG/24 HOUR PATCH.TD24 1 PAT TOP DAILY Smoking Cessation Past History Travel History Traveled to [place] past 21 day No Medical History Neurological: NONE EENT: NONE Cardiovascular: bicuspid aortic valve Respiratory: asthma, pneumonia Gastrointestinal: NONE Hepatic: NONE Renal: NONE Musculoskeletal: NONE Psychiatric: anxiety, ADHD Endocrine: NONE Blood Disorders: NONE Cancer(s): NONE 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 Home Who Do You Live With? parent Services at Home: None Primary Language: Hungarian Smoking Status: Current Everyday Smoker (1ppd x 5 years) ETOH Use: denies use Illicit Drug Use: heroin (last used heroin 1 year ago) Functional Ability ADLs Independent: dressing, eating, toileting, bathing. Ambulation: independent IADLs Independent: shopping, housework, finances, food prep, telephone, transportation , medication admin. Review of Systems Review of Systems Constitutional: Reports: no symptoms. EENTM: Reports: no symptoms. Cardiovascular: Reports: no symptoms. Respiratory: Reports: cough, short of breath, sputum production, wheezing. GI: Reports: no symptoms. Genitourinary: Reports: no symptoms. Musculoskeletal: Reports: no symptoms. Skin: Reports: no symptoms. Exam & Diagnostic Data Last 24 Hrs of Vital Signs/I&O Vital Signs Date Time Temp Pulse Resp B/P B/P Pulse O2 O2 Flow FiO2 Mean Ox Delivery Rate 06/16 2338 97.6 85 20 127/63 94 Venti Mask 100% 06/16 2226 Venti Mask 55% 06/16 2142 99.0 90 20 124/76 96 Venti Mask 06/16 1941 94 Venti Mask 55% 06/16 1731 93 20 129/60 90 06/16 1720 92 Venti Mask 55% 06/16 1538 100 Non 100% ReBreather 06/16 1538 98 Non 100% ReBreather 06/16 1509 98.5 112 24 130/80 88 Room Air Intake & Output 06/17 0800 06/17 0000 06/16 1600 Intake Total 120 Output Total Balance 120 Intake, Oral 120 Patient 186 lb 190 lb Weight Weight Bed scale Estimated Measurement Method Physical Exam General Appearance Alert, Oriented X3, Cooperative, Mild Distress, Non rebreather in place; no use of accessory muscles to breathe Skin No Rashes Skin Temp/Moisture Exam: Warm/Dry HEENT Atraumatic, PERRLA Neck Supple Cardiovascular Normal S1, Normal S2, tachycardic systolic murmur Lungs inspiratory/expiratory wheezes throughout Abdomen Normal Bowel Sounds, Soft, No Tenderness Extremities No Cyanosis, No Edema, Normal Pulses Assessment/Plan Assessment: 27 year old male with PMH asthma, bicuspid aortic valve, anxiety, depression, substance abuse on methadone, ADHD presenting with acute asthma exacerbation. Patient states he has been progressively SOB for the past 3-4 weeks with associated productive cough, wheezing, and increased need to inhalers/breathing treatments. He states he was recently admitted to the hospital in March for asthma exacerbation and PNA. He was treated with abx and steroids. He states the past 1-2 days he has become significantly SOB and finally came to the ED today. ED work up showed acute hypoxic respiratory distress requiring non- rebreather. Patient will be admitted to general medicine service for further care of the following: Problem List: 1. Acute hypoxic respiratory distress 2/2 asthma exacerbation 2. Leukocytosis Admission Data: VS T98.5 P112 RR24 BP130/80 Sat 88%RA-->100% Venti Mask Labs: WBC 14.1 H/H 13.6/40.3 Plt 346 Na 136 K 4.4 BUN/Cr 12/0.7 Glu 107 ED tx: SoluMedrol 125mg x 1 dose; Nebulizing tx EKG sinus tachycardia CXR:Unremarkable chest examination. No change. #Acute hypoxic respiratory distress 2/2 asthma exacerbation- likely 2/2 humidity vs current smoker vs home allergens -Duonebs [id number] -IV Methlyprednisolone 40mg [id number] -sputum cultures -follow off abx at this time as no underlying infectious process is suspected -taper oxygen as tolerated; maintain sats above 90% #Leukocytosis-likely reactive given recent steroid tx for pneumonia -continue to monitor DVT prophylaxis: heparin/ALPS/ambulation Code status: full code As Ranked By This Provider Problem List: 1. Asthma exacerbation attacks 2. Acute respiratory failure with hypoxia Core Measures/Misc (07/09) Acute Coronary Syndrome ACS Diagnosis: No Congestive Heart Failure Congestive Heart Failure Diagnosis No Cerebrovascular Accident CVA/TIA Diagnosis: No VTE (View Protocol) VTE Risk Factors Acute Medical Illness No Mechanical VTE Prophylaxis d/t N/A MechProphylax Ordered No VTE Pharm Prophylaxis d/t NA PharmProphylax ordered Sepsis (View protocol) Sepsis Present: No If YES complete Sepsis Event Note If YES complete Sepsis Event Note Kam Vargas 06/16/189: Core Measures/Misc (07/09) Sepsis (View protocol) If YES complete Sepsis Event Note If YES complete Sepsis Event Note Resident Review Statement Resident Statement: examined this patient, discussed with manufacturing engineering intern, agreed with manufacturing engineering intern, discussed with family, reviewed EMR data (avail), discussed with nursing , discussed with case mgmt, reviewed images, amended to note Other Findings: This is a 27-year-old male with past medical history significant for asthma, anxiety, ADHD, depression, opiate dependence on methadone, current smoker, bicuspid aortic valve presented to the emergency room for acute on chronic worsening of shortness of breath for 2 days. Patient reports that he has been having shortness of breath associated with cough for last 1 month. However for last couple of days his shortness of breath worsened to the point that he could not take it anymore. He also reports wheezing, cough, sputum production. Denied any fever, chills. He has been waking up for last couple of days during night for breathing treatments. Denies exposure to sick contacts. Denied any recent travel history. When he presented to the emergency room he was saturating at 88% requiring Ventimask. He was admitted to [facility] in March 2018 for hypoxic respiratory failure, Asthma exacerbation and pneumonia. Since then he has been seen at urgent care clinic 2-3 times for asthma exacerbation, requiring steroids. He denied any chest pain, chest tightness, palpitations, fever, chills, nausea, vomiting, abdominal pain, change in bladder or bowel habits. He still smokes 1 pack per day, decreased for last 1 month given shortness of breath. Denies alcohol abuse. Denies illicit drug abuse. He has been getting methadone 85 mg daily. Vitals afebrile, heart rate 110, respiratory rate 24, blood pressure 130/80, saturating at 88 on room air, required a Ventimask. On exam he has bilateral inspiratory and expiratory wheezes, systolic ejection murmur. Pertinent labs Leukocytosis 14.1, hemoglobin 13, hematocrit 40, platelets 346 Sodium 136, potassium 4.4, BUN 12 and creatinine 0.7 Received methylprednisone 125 mg, TRC nebs in the emergency room EKG sinus tachycardia, 100, no acute ST-T wave changes Chest x-ray-no acute cardiopulmonary findings --- Acute hypoxic respiratory failure secondary to acute asthma exacerbation Patient presented with acute on chronic worsening shortness of breath associated with cough, sputum production, wheeze. Denied any fever, chills. He reports no improvement with inhalers at home. He was saturating at 88% in the emergency room, requiring Ventimask. He is tachypneic, has inspiratory and expiratory wheezes all over. Chest x-ray showed no acute cardiopulmonary findings, no pneumonia. * Admit to general medicine for acute asthma exacerbation * Monitor vitals every shift * Maintain oxygen saturations greater than 92 * Currently on Ventimask saturating at 96% * Slowly wean off from Ventimask * Will continue methylprednisone 40 mg every 8 hours * Total respiratory care * DUO nebs * Sputum cultures * Monitor for any fever/worsening leukocytosis Reactive leukocytosis Mostly from recent use of prednisone Current smoker Nicotine patch 21 mg daily Anxiety continue Xanax 0.5 mg twice daily ADHD takes amphetamines at home Depression continue fluoxetine 10 mg daily Opiate dependence, takes methadone 85 daily Full code DVT prophylaxis subcu Lovenox Regular diet Pain pathway ordered Karina PIERCE,Garth Reinoso 06/17/18 0553: Core Measures/Misc (07/09) Sepsis (View protocol) If YES complete Sepsis Event Note If YES complete Sepsis Event Note Attending MD Review Statement Attending Statement Attending MD Statement: examined this patient, discuss w/resident/PA/NUDE MODEL, agreed w/resident/PA/NUDE MODEL Attending Assessment/Plan: 27 year-old patient on methadone maintenance, presents with worsening dyspnea and cough productive of scant discolored sputum. Has been sleeping next to his nebulizer so when he wakes he can use it again. He has been seen in urgent care a few times in the past month for breathing difficulties; he usually emerges with Prednisone taper. These are partially effective. Lab work with leukoctysosis- either reactive to recent steroids or from stress most likely. Needed ventimask to maintain oxygenation in the mid 90's. Tachycardia is improving with ER treatment and probably a good proxy for response to therapy. He's now approaching 100% pulse oximetry when I see him, with good air movement (albeit with diffuse wheezing), but without tripoding, pursed lip breathing, or significant distress. He seems to be slowly responding to IV steroids, but will need admission for continued management of asthma exacerbation. Clear CXR and absence of fever or significant amount of sputum production; will hold off on antibiotics. Reassuring that his respiratory status appears to be improving with ER treatment. Admit to inpatient for management of acute asthma exacerbation failing attempts at outpatient management. Would continue with his usual Methadone 85mg daily ( down 5mg from last admission in Spring). IV Solu-Medrol [id number]. Regular bronchodilators and breathing treatments. Attempt to titrate down oxygen. Garth Collins MD
[2018-06-16 23:38] VITALS: BP 127/63
[2018-06-17 06:41] VITALS: BP 128/72
[2018-06-17 08:39] LABS: ABSOLUTE BASOPHIL COUNT 0 /CUMM (0.0-0.2); ABSOLUTE EOSINOPHIL COUNT 0 /CUMM (0.0-0.7); ABSOLUTE LYMPH COUNT 1.2 /CUMM (1.2-3.4); ABSOLUTE MONOCYTE COUNT 0.2 /CUMM (0.10-0.60); BASOPHIL % 0 % (0.0-2.0); EOSINOPHIL % 0 % (0-5); GRANULOCYTE % 92.1 % (42.2-75.2); HEMATOCRIT 38.9 % (42-52); MEAN CORPUSCULAR HGB 27.6 PG (27.0-31.0); MEAN CORPUSCULAR HGB CONC 33.5 G/DL (33.0-37.0); MEAN CORPUSCULAR VOLUME 82.5 FL (80.0-94.0); MEAN PLATELET VOLUME 7.8 FL (7.4-10.4); PLATELET COUNT 312 /CUMM (130-400); RBC DISTRIBUTION WIDTH 15.3 % (11.5-14.5); RED BLOOD CELL CT 4.72 /CUMM (4.70-6.10); WHITE BLOOD CELL COUNT 17.4 /CUMM (4.8-10.8)
--- NOTE | 2018-06-17 11:07 | PN- Att Addend ---
Attending Addendum Attending Brief Note Mr. Yang was seen and evaluated. H&P reviewed. He reports family history of Asthma, however, denies seeing any Pile Driving Supervisor. Currently reports sl improvement in his symptoms --cont current plan of care --will need Pulm eval as outpt --rest of the plan as per resident's note
--- NOTE | 2018-06-17 11:10 | PN- Housestaff ---
Snow Michel 06/17/18 1110: Subjective Follow-up For: Asthma exacerbation Subjective: Patient is seen and examined, he was lying comfortably in the bed. Reports that his breathing is much improved from yesterday. He continues to be on Ventimask saturating 95%. Denies any headache/dizziness/chest pain/abdominal discomfort/burning micturition. Patient reports of constipation we will start him on bowel regimen. Review of Systems Constitutional: Reports: see HPI. Objective Last 24 Hrs of Vital Signs/I&O Vital Signs Date Time Temp Pulse Resp B/P B/P Pulse O2 O2 Flow FiO2 Mean Ox Delivery Rate 06/17 1139 Venti Mask 45% 06/17 0641 97.4 78 20 128/72 95 Venti Mask 55% 06/17 0000 Venti Mask 55% 06/16 2338 97.6 85 20 127/63 94 Venti Mask 100% 06/16 2226 Venti Mask 55% 06/16 2142 99.0 90 20 124/76 96 Venti Mask 06/16 1941 94 Venti Mask 55% 06/16 1731 93 20 129/60 90 06/16 1720 92 Venti Mask 55% 06/16 1538 100 Non 100% ReBreather 06/16 1538 98 Non 100% ReBreather 06/16 1509 98.5 112 24 130/80 88 Room Air Intake & Output 06/17 1600 06/17 0800 06/17 0000 Intake Total 120 Output Total Balance 120 Intake, Oral 120 Patient 84.538 kg Weight Weight Bed scale Measurement Method Physical Exam General Appearance: Alert, Oriented X3, Cooperative, No Acute Distress Skin: No Rashes HEENT: Atraumatic Neck: Supple Cardiovascular: Regular Rate, Normal S1, Normal S2 Lungs: B/L WHEEZES Abdomen: Normal Bowel Sounds, Soft, No Tenderness Current Medications: Current Medications Sig/Shelia Start time Last Medication Dose Route Stop Time Status Admin Acetaminophen 650 MG Q6P PRN 06/16 2200 AC PO Albuterol Sulfate 3 ML EVERY 4 HRS/AWAKE 06/17 1200 UNVr INH Albuterol Sulfate 2 PUF Q4-6 PRN PRN 06/16 2200 AC INH Albuterol Sulfate 3 ML ONCE ONE 06/16 1945 DC 06/16 INH 06/16 1946 194 Albuterol Sulfate 3 ML Q4H PRN 06/16 1700 AC 06/16 INH 1720 Albuterol Sulfate 3 ML ONCE ONE 06/16 1515 DC 06/16 INH 06/16 1516 1536 Alprazolam 0.5 MG BID 06/16 2151 AC 06/17 PO 06/23 2150 0611 Enoxaparin Sodium 40 MG DAILY 06/17 09 AC SC Fluoxetine HCl 10 MG DAILY 06/17 09 AC 06/17 PO 0835 Ipratropium Jenks 2.5 ML ONCE ONE 06/16 194 DC 06/16 INH 06/16 1946 194 Ipratropium [place] 2.5 ML ONCE ONE 06/16 1515 DC 06/16 INH 06/16 1516 1536 Methadone HCl 80 MG DAILY 06/17 09 AC 06/17 PO 0611 Methadone HCl 5 MG DAILY 06/17 900 AC 06/17 PO 0610 Methadone HCl 0 .STK-MED ONE 06/17 06 DC PO Methadone HCl 0 .STK-MED ONE 06/17 0608 DC PO Methylprednisolone 40 MG Q8 06/160 AC 06/17 IV 0600 Methylprednisolone 0 .STK-MED ONE 06/16 1528 DC .ROUTE Methylprednisolone 125 MG ONCE ONE 06/16 1515 DC 06/16 IV 06/16 1516 1530 Nicotine 21 MG DAILY 06/17 09 AC 06/17 TOP 0835 Non-Formulary 0 SEE ADMIN CRITERIA 06/16 2200 DC Medication ANY Last 24 Hrs of Lab/Mejia Results Last 24 Hrs of Labs/Mics: Laboratory Tests 06/17/18 0632: Anion Gap 9, Estimated GFR > 60, BUN/Creatinine Ratio 20.0, CBC w Diff MAN DIFF ORDERED, RBC 4.72, MCV 82.5, MCH 27.6, MCHC 33.5, RDW 15.3 H, MPV 7.8, Gran % 92.1 H, Lymphocytes % 6.8 L, Monocytes % 1.1 L, Eosinophils % 0, Basophils % 0, Absolute Granulocytes 16.0 H, Segmented Neutrophils Pending, Absolute Lymphocytes 1.2, Absolute Monocytes 0.2, Absolute Eosinophils 0, Absolute Basophils 0 06/16/18 1528: Anion Gap 9, Estimated GFR > 60, BUN/Creatinine Ratio 17.1, Glucose 107 H, Lactic Acid 1.5, Calcium 9.5, Total Bilirubin 0.6, AST 25, ALT 29, Alkaline Phosphatase 77, Troponin I < 0.01, Total Protein 7.0, Albumin 4.3, Globulin 2.7, Albumin/Globulin Ratio 1.6, CBC w Diff NO MAN DIFF REQ, RBC 4.97, MCV 81.2, MCH 27.4, MCHC 33.7, RDW 15.1 H, MPV 6.9 L, Gran % 74.2, Lymphocytes % 16.3 L, Monocytes % 5.0, Eosinophils % 4.3, Basophils % 0.2, Absolute Granulocytes 10.5 H, Absolute Lymphocytes 2.3, Absolute Monocytes 0.7 H, Absolute Eosinophils 0.6 , Absolute Basophils 0 Microbiology 06/16 2240 LOWER RESP: Respiratory Culture - COLB 06/16 2240 LOWER RESP: Gram Stain - COLB 06/16 2101 BLOOD: Blood Culture - RECD 06/16 2053 BLOOD: Blood Culture - RECD Assessment/Plan Assessment: This is a 27-year-old male with past medical history significant for asthma, anxiety, ADHD, depression, opiate dependence on methadone, current smoker, bicuspid aortic valve presented to the emergency room for acute on chronic worsening of shortness of breath for 2 days. Patient reports that he has been having shortness of breath associated with cough for last 1 month. However for last couple of days his shortness of breath worsened to the point that he could not take it anymore. He also reports wheezing, cough, sputum production. Denied any fever, chills. He has been waking up for last couple of days during night for breathing treatments. Denies exposure to sick contacts. Denied any recent travel history.When he presented to the emergency room he was saturating at 88% requiring Ventimask. He was admitted to [facility] in March 2018 for hypoxic respiratory failure, Asthma exacerbation and pneumonia. Since then he has been seen at urgent care clinic 2 -3 times for asthma exacerbation, requiring steroids. Problem list #1 asthma exacerbation #2 opioid dependence #3 constipation #4 nicotine dependence #5 History of anxiety/ADHD/depression Assessment and plan Patient states that his breathing has improved however he continues to be on Ventimask. He got loading dose of Solu Medrol in ER, and was continued on 40 every 8 today, can taper tomorrow if symptoms improve. TRC nebs treatment as needed. His leukocytosis is probably due to steroids. We will start patient on MiraLAX and Colace for constipation. We will continue the rest of his meds including methadone, nicotine patch, Xanax , fluoxetine. DVT prophylaxis alps Patient is full code. Problem List: 1. Acute respiratory failure with hypoxia Pain Ratin Pain Location: NONE Pain Goal: Pain 4 or less Pain Plan: TYLENOL PRN FOR PAIN Tomorrow's Labs & Rationales: NONE Jacob PIERCE,Amir 06/17/18 1210: Attending MD Review Statement Attending Statement Attending MD Statement: examined this patient, discuss w/resident/PA/BLADDER CHANGER, agreed w/resident/PA/BLADDER CHANGER, reviewed EMR data (avail), discussed with nursing
[2018-06-17 14:17] VITALS: BP 130/55
[2018-06-17 21:30] VITALS: BP 108/70
[2018-06-18 06:31] VITALS: BP 126/78
--- NOTE | 2018-06-18 07:44 | PN- Housestaff ---
Subjective Follow-up For: asthma exacerbation Subjective: patient continues to require increased O2. he notes being very anxious and asks for another dose of xanax. he denies any sob on exertion states that his issues are "seasonal" and that this summer has been the worst yet in terms of his breathing. patient continues to smoke. continues to need to sleep upright. has rib pain from coughing. Review of Systems Constitutional: Reports: no symptoms. Cardiovascular: Reports: no symptoms. Respiratory: Reports: orthopnea, short of breath, wheezing. Gastrointestinal: Reports: no symptoms. Musculoskeletal: Reports: no symptoms. Objective Last 24 Hrs of Vital Signs/I&O Vital Signs Date Time Temp Pulse Resp B/P B/P Pulse O2 O2 Flow FiO2 Mean Ox Delivery Rate 06/18 1635 96 Nasal 4.0L Cannula 06/18 1600 96 Nasal 4.0L Cannula 06/18 1400 98.4 91 20 138/62 93 Nasal 5.0L Cannula 06/18 0813 94 Nasal 5.0L Cannula 06/18 0631 97.8 70 20 126/78 95 06/18 0000 Nasal 5.0L Cannula Intake & Output 06/18 1600 06/18 0800 06/18 0000 Intake Total 750 360 240 Output Total Balance 750 360 240 Intake, Oral 750 360 240 Patient 194 lb Weight Weight Bed scale Measurement Method Physical Exam General Appearance: Alert, Oriented X3, Cooperative, No Acute Distress Skin: No Rashes HEENT: Atraumatic, PERRLA, EOMI Cardiovascular: Regular Rate, Normal S1, Normal S2, No Murmurs Lungs: mild wheezing sp breathing treatment Abdomen: Normal Bowel Sounds, Soft, No Tenderness Neurological: Normal Speech Current Medications: Current Medications Sig/Shelia Start time Last Medication Dose Route Stop Time Status Admin Acetaminophen 650 MG Q6P PRN 06/16 2200 AC PO Albuterol Sulfate 3 ML EVERY 4 HRS/AWAKE 06/17 1200 AC 06/18 INH 2040 Albuterol Sulfate 2 PUF Q4-6 PRN PRN 06/16 220 AC INH Albuterol Sulfate 3 ML Q4H PRN 06/16 1700 AC 06/16 INH 1720 Alprazolam 0.5 MG ONCE ONE 06/18 1145 DC 06/18 PO 06/18 1146 1143 Alprazolam 0.5 MG BID 06/16 2151 AC 06/18 PO 06/23 Enoxaparin Sodium 40 MG DAILY 06/17 0900 AC SC Fluoxetine HCl 10 MG DAILY 06/17 0900 AC 06/18 PO 0825 Hydroxyzine HCl 25 MG ONCE ONE 06/18 0945 DC 06/18 PO 06/18 0946 1038 Melatonin 5 MG AT BEDTIME 06/18 2100 AC 06/18 PO 2123 Methadone HCl 80 MG DAILY 06/17 0900 AC 06/18 PO 0608 Methadone HCl 5 MG DAILY 06/17 0900 AC 06/18 PO 0608 Methylprednisolone 40 MG Q8 06/16 2200 AC 06/18 IV 2123 Nicotine 21 MG DAILY 06/17 0900 AC 06/18 TOP 0826 Patient Medication 1 ED ONE ONE 06/18 0930 DC 06/18 Teaching ED 06/18 0931 1629 Polyethylene Glycol 17 GM DAILY 06/17 1201 AC PO Senna/Docusate Sodium 2 TAB DAILY 06/17 1245 AC PO Last 24 Hrs of Lab/Mejia Results Last 24 Hrs of Labs/Mics: Microbiology 06/18 1548 LOWER RESP: Respiratory Culture - COLB 06/18 154 LOWER RESP: Gram Stain - COLB Assessment/Plan Assessment: This is a 27-year-old male with past medical history significant for asthma, anxiety, ADHD, depression, opiate dependence on methadone, current smoker, bicuspid aortic valve presented to the emergency room for acute on chronic worsening of shortness of breath for 2 days. Patient reports that he has been having shortness of breath associated with cough for last 1 month. However for last couple of days his shortness of breath worsened to the point that he could not take it anymore. He also reports wheezing, cough, sputum production. Denied any fever, chills. He has been waking up for last couple of days during night for breathing treatments. Denies exposure to sick contacts. Denied any recent travel history.When he presented to the emergency room he was saturating at 88% requiring Ventimask. He was admitted to [facility] in March 2018 for hypoxic respiratory failure, Asthma exacerbation and pneumonia. Since then he has been seen at urgent care clinic 2 -3 times for asthma exacerbation, requiring steroids. Problem list #1 asthma exacerbation #2 opioid dependence #3 constipation #4 nicotine dependence #5 History of anxiety/ADHD/depression Assessment and plan Patient continued on 40 every 8 today, can taper tomorrow if symptoms improve. TRC nebs treatment as needed. attempt to taper O2. His leukocytosis is probably due to steroids. We will start patient on MiraLAX and Colace for constipation. We will continue the rest of his meds including methadone, nicotine patch, Xanax , fluoxetine. Patient required extra dose of xanax today, we attempted hydroxyzine but it did not help the patient's anxiety. refer patient to PCP as he does not have one pulmonary consult with dr. valladares who previously saw the patient. follow up sputum and blood cultures DVT prophylaxis alps Patient is full code. Problem List: 1. Acute respiratory failure with hypoxia 2. Asthma exacerbation Pain Ratin Pain Location: na Pain Goal: Remain pain free Pain Plan: na Tomorrow's Labs & Rationales: not needed
--- NOTE | 2018-06-18 12:02 | Cons- Pulmonary ---
General Information and HPI Consulting Request Date of Consult: 06/18/18 Requested By: Felipa Reason for Consult: Acute asthma History of Present Illness: Patient is 27-year-old with history of asthma actively smoking admitted with acute hypoxic respiratory failure in the setting of bronchospasm. He was admitted in March with a similar presentation. He continues to smoke 1 pack per day. His evaluated in the walk-in Center twice in the past month given prednisone and Symbicort. He has run out of Symbicort and albuterol. Allergies/Medications Allergies: Coded Allergies: No Known Allergies (03/27/18) Home Med List: Albuterol Sulfate 2.5 MG/3 ML (0.083 %) VIAL.NEB 1 Vial INH/JACQUE AD PRN ASTHMA (Reported) Albuterol Sulfate (Proair Hfa) 90 MCG HFA.AER.AD 2 PUF INH Q4-6 PRN PRN Asthma Exacerbation Alprazolam 0.5 MG TABLET 1 TAB PO BID ANXIETY (Reported) Dextroamphetamine/Amphetamine (Adderall XR 30 MG Capsule) 30 MG CAP.ER.24H 2 CAP PO DAILY ADHD (Reported) Fluoxetine HCl 10 MG CAPSULE 1 CAP PO DAILY MENTAL HEALTH (Reported) Methadone Hydrochloride (Methadone HCl) 10 MG TABLET 85 MG PO DAILY WITHDRAWAL (Reported) Nicotine (Nicotine Patch) 21 MG/24 HOUR PATCH.TD24 1 PAT TOP DAILY Smoking Cessation Review of Systems Review of Systems Constitutional: Denies: chills, fever. Cardiovascular: Denies: chest pain, edema. Respiratory: Reports: cough, short of breath, wheezing. Denies: hemoptysis, sputum production. GI: Denies: abdominal pain, diarrhea, melena. 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 Home Who Do You Live With? parent Services at Home: None Primary Language: Senegalese Smoking Status: Current Everyday Smoker (1ppd x 5 years) ETOH Use: denies use Illicit Drug Use: heroin (last used heroin 1 year ago) Functional Ability ADLs Independent: dressing, eating, toileting, bathing. Ambulation: independent IADLs Independent: shopping, housework, finances, food prep, telephone, transportation , medication admin. Exam & Diagnostic Data Last 24 Hrs of Vital Signs/I&O Vital Signs Date Time Temp Pulse Resp B/P B/P Pulse O2 O2 Flow FiO2 Mean Ox Delivery Rate 06/18 0813 94 Nasal 5.0L Cannula 06/18 0631 97.8 70 20 126/78 95 06/18 0000 Nasal 5.0L Cannula 06/17 2130 98.2 78 18 108/70 94 Nasal 5.0L Cannula 06/17 1625 91 Nasal 5.0L Cannula 06/17 1417 98.3 78 20 130/55 94 Nasal 4.0L Cannula Intake & Output 06/18 1600 06/18 0800 06/18 0000 Intake Total 360 240 Output Total Balance 360 240 Intake, Oral 360 240 Patient 194 lb Weight Weight Bed scale Measurement Method Oxygen saturation 5 L 94% HNT exam shows no adenopathy or stridor exam of his chest shows diffuse wheezing cardiac exam shows regular S1 and S2 with systolic ejection murmur abdomen is soft nontender Last 48 Hrs of Labs/Mejia: Laboratory Tests 06/17/18 0632: Anion Gap 9, Estimated GFR > 60, BUN/Creatinine Ratio 20.0, CBC w Diff MAN DIFF ORDERED, RBC 4.72, MCV 82.5, MCH 27.6, MCHC 33.5, RDW 15.3 H, MPV 7.8, Gran % 92.1 H, Lymphocytes % 6.8 L, Monocytes % 1.1 L, Eosinophils % 0, Basophils % 0, Absolute Granulocytes 16.0 H, Absolute Lymphocytes 1.2, Absolute Monocytes 0.2, Absolute Eosinophils 0, Absolute Basophils 0, Platelet Estimate VERIFIED BY SMEAR, Anisocytosis 1+ 06/16/18 1528: Anion Gap 9, Estimated GFR > 60, BUN/Creatinine Ratio 17.1, Glucose 107 H, Lactic Acid 1.5, Calcium 9.5, Total Bilirubin 0.6, AST 25, ALT 29, Alkaline Phosphatase 77, Troponin I < 0.01, Total Protein 7.0, Albumin 4.3, Globulin 2.7, Albumin/Globulin Ratio 1.6, CBC w Diff NO MAN DIFF REQ, RBC 4.97, MCV 81.2, MCH 27.4, MCHC 33.7, RDW 15.1 H, MPV 6.9 L, Gran % 74.2, Lymphocytes % 16.3 L, Monocytes % 5.0, Eosinophils % 4.3, Basophils % 0.2, Absolute Granulocytes 10.5 H, Absolute Lymphocytes 2.3, Absolute Monocytes 0.7 H, Absolute Eosinophils 0.6 , Absolute Basophils 0 Assessment/Plan Impression/Plan: 27-year-old gentleman actively smoking with history of asthma admitted with acute asthma exacerbation status asthmaticus and acute hypoxic respiratory failure. Recommendations: Patient was counseled regarding need for smoking cessation. Obtain sputum C&S. Taper FiO2 his saturations allow. Patient was counseled regarding the need to maintain adequate medication supplies. Continue IV steroids. Continue bronchodilator nebulizations further evaluation of bicuspid aortic valve per primary care team Consult Acknowledgment - Thank you for your consult request.
--- NOTE | 2018-06-18 12:02 | PN- Att Addend ---
Attending Addendum Attending Brief Note Patient seen and examined, feels very anxious. Still requiring 5 L of oxygen. He received his Xanax this morning but still very anxious and wants another dose of Xanax. Vital Signs Date Time Temp Pulse Resp B/P B/P Pulse O2 O2 Flow FiO2 Mean Ox Delivery Rate 06/18 0813 94 Nasal 5.0L Cannula 06/18 0631 97.8 70 20 126/78 95 06/18 0000 Nasal 5.0L Cannula 06/17 2130 98.2 78 18 108/70 94 Nasal 5.0L Cannula 06/17 1625 91 Nasal 5.0L Cannula 06/17 1417 98.3 78 20 130/55 94 Nasal 4.0L Cannula on exam; aox3, looks anxious. cv; s1,s2, rrr resp; + exp wheeze b/l abd; soft, nt, bs+ ext; no edema no labs today. A/P; 27 y/o M with pmh sig for asthma, anxiety, ADHD, depression, opiate dependence on methadone, current smoker, bicuspid aortic valve admitted with acute respiratory failure (patient tachycardic, hypoxic and was in moderate distress), likely secondary to acute asthma exacerbation. Patient continues to smoke. He is very anxious requiring extra dose of Xanax. We will continue the present dose of steroids for now. Will consult pulmonology. We will give an extra dose of Xanax. I ordered. Hydroxyzine did not improve his anxiety. Continue SMILEY nebs. We are watching off of antibiotics as there is no evidence of pneumonia. Continue methadone and the rest of the management. DVT px; Lovenox.
[2018-06-18 14:00] VITALS: BP 138/62
[2018-06-18 22:43] VITALS: BP 133/71
--- NOTE | 2018-06-19 07:23 | PN- Pulmonary ---
Subjective HPI/Critical Care Issues: Patient report shortness breath is improved. Objective Current Medications: Current Medications Sig/Shelia Start time Last Medication Dose Route Stop Time Status Admin Acetaminophen 650 MG Q6P PRN 06/16 2200 AC PO Albuterol Sulfate 3 ML EVERY 4 HRS/AWAKE 06/17 1200 AC 06/18 INH 2040 Albuterol Sulfate 2 PUF Q4-6 PRN PRN 06/16 2200 AC INH Albuterol Sulfate 3 ML Q4H PRN 06/16 1700 AC 06/16 INH 1720 Alprazolam 0.5 MG ONCE ONE 06/18 1145 DC 06/18 PO 06/18 1146 1143 Alprazolam 0.5 MG BID 06/16 2151 AC 06/18 PO 06/23 2150 2123 Enoxaparin Sodium 40 MG DAILY 06/17 0900 AC SC Fluoxetine HCl 10 MG DAILY 06/17 0900 AC 06/18 PO 0825 Hydroxyzine HCl 25 MG ONCE ONE 06/18 0945 DC 06/18 PO 06/18 0946 1038 Melatonin 5 MG AT BEDTIME 06/18 2100 AC 06/18 PO 2123 Methadone HCl 80 MG DAILY 06/17 0900 AC 06/18 PO 0608 Methadone HCl 5 MG DAILY 06/17 0900 AC 06/18 PO 0608 Methylprednisolone 40 MG Q8 06/16 2200 AC 06/19 IV 0513 Nicotine 21 MG DAILY 06/17 0900 AC 06/18 TOP 0826 Patient Medication 1 ED ONE ONE 06/18 0930 DC 06/18 Teaching ED 06/18 0931 1629 Polyethylene Glycol 17 GM DAILY 06/17 1201 AC PO Senna/Docusate Sodium 2 TAB DAILY 06/17 1245 AC PO Vital Signs & I&O Last 24 Hrs of Vitals and I&O: Vital Signs Date Time Temp Pulse Resp B/P B/P Pulse O2 O2 Flow FiO2 Mean Ox Delivery Rate 06/19 0000 Nasal 4.0L Cannula 06/18 2243 97.7 93 20 133/71 94 Nasal 2.0L Cannula 06/18 1635 96 Nasal 4.0L Cannula 06/18 1600 96 Nasal 4.0L Cannula 06/18 1400 98.4 91 20 138/62 93 Nasal 5.0L Cannula 06/18 0813 94 Nasal 5.0L Cannula Intake & Output 06/19 0800 06/19 0000 08/27 1600 Intake Total 240 720 750 Output Total Balance 240 720 750 Intake, Oral 240 720 750 Number 1 Bowel Movements Oxygen saturation 4 L 94% exam of his chest shows better air entry there are decreased wheezing cardiac exam shows regular S1 and S2 without murmurs Impression/Plan Impression/Plan Impression/Plan: 27-year-old with asthma and persistent smoking admitted with acute asthma exacerbation and acute hypoxic respiratory failure which appears to be slowly improving Recommendations: Patient was counseled regarding need for smoking cessation. Obtain sputum C&S. Taper FiO2 his saturations allow. Patient was counseled regarding the need to maintain adequate medication supplies. Continue IV steroids and convert to oral prednisone if he continues to do well later today Continue bronchodilator nebulizations further evaluation of bicuspid aortic valve per primary care team
[2018-06-19 07:27] VITALS: BP 133/63
--- NOTE | 2018-06-19 08:15 | PN- Housestaff ---
Subjective Follow-up For: asthma exacerbation Subjective: Patient seen and examined. He states that he is feeling "pretty good" today. He states that his breathing is good. Vitals are stable and he has good oxygen saturation on 2 L nasal cannula down from 5 L yesterday. Denies anxiety this morning after taking his dose of Xanax. Review of Systems Constitutional: Reports: no symptoms. Cardiovascular: Reports: no symptoms. Respiratory: Reports: no symptoms. Gastrointestinal: Reports: no symptoms. Genitourinary: Reports: no symptoms. Objective Last 24 Hrs of Vital Signs/I&O Vital Signs Date Time Temp Pulse Resp B/P B/P Pulse O2 O2 Flow FiO2 Mean Ox Delivery Rate 06/19 1506 98.2 75 20 126/90 96 Room Air 06/19 0819 92 Nasal 2.0L Cannula 06/19 0727 97.8 62 20 133/63 97 Nasal 2.0L Cannula 06/19 0000 Nasal 4.0L Cannula 06/18 2243 97.7 93 20 133/71 94 Nasal 2.0L Cannula 06/18 1635 96 Nasal 4.0L Cannula 06/18 1600 96 Nasal 4.0L Cannula Intake & Output 06/19 1600 06/19 0800 06/19 0000 Intake Total 240 720 Output Total Balance 240 720 Intake, Oral 240 720 Number 1 Bowel Movements Physical Exam General Appearance: Alert, Oriented X3, Cooperative, No Acute Distress Skin: No Rashes Skin Temp/Moisture Exam: Warm/Dry HEENT: Atraumatic, PERRLA, EOMI, Mucous Membr. moist/pink Cardiovascular: Regular Rate, Normal S1, Normal S2, No Murmurs Lungs: very minor wheezing Abdomen: Normal Bowel Sounds, Soft, No Tenderness Neurological: Normal Speech Current Medications: Current Medications Sig/Shelia Start time Last Medication Dose Route Stop Time Status Admin Acetaminophen 650 MG Q6P PRN 06/16 2200 AC PO Albuterol Sulfate 3 ML EVERY 4 HRS/AWAKE 06/17 1200 AC 06/19 INH 1157 Albuterol Sulfate 2 PUF Q4-6 PRN PRN 06/16 220 AC INH Albuterol Sulfate 3 ML Q4H PRN 06/16 1700 AC 06/16 INH 1720 Alprazolam 0.5 MG BID 06/16 2151 AC 06/19 PO 06/23 215 0851 Enoxaparin Sodium 40 MG DAILY 06/17 0900 AC SC Fluoxetine HCl 10 MG DAILY 06/17 0900 AC 06/19 PO 0853 Melatonin 5 MG AT BEDTIME 06/18 2100 AC 06/18 PO 2123 Methadone HCl 80 MG DAILY 06/17 09 AC 06/19 PO 0850 Methadone HCl 5 MG DAILY 06/17 0900 AC 06/19 PO 0851 Methylprednisolone 40 MG Q8 06/16 2200 DC 06/19 IV 0513 Nicotine 21 MG DAILY 06/17 09 AC 06/19 TOP 0851 Polyethylene Glycol 17 GM DAILY 06/17 1201 AC 06/19 PO 0853 Prednisone 60 MG DAILY 06/19 1226 AC 06/19 PO 1404 Senna/Docusate Sodium 2 TAB DAILY 06/17 1245 AC 06/19 PO 0852 Last 24 Hrs of Lab/Mejia Results Last 24 Hrs of Labs/Mics: Microbiology 06/18 1548 LOWER RESP: Respiratory Culture - CAN Cancelled: SPECIMEN NOT RECEIVED IN LABORATORY 06/18 1548 LOWER RESP: Gram Stain - CAN Cancelled: SPECIMEN NOT RECEIVED IN LABORATORY Assessment/Plan Assessment: This is a 27-year-old male with past medical history significant for asthma, anxiety, ADHD, depression, opiate dependence on methadone, current smoker, bicuspid aortic valve presented to the emergency room for acute on chronic worsening of shortness of breath for 2 days. Patient reports that he has been having shortness of breath associated with cough for last 1 month. However for last couple of days his shortness of breath worsened to the point that he could not take it anymore. He also reports wheezing, cough, sputum production. Denied any fever, chills. He has been waking up for last couple of days during night for breathing treatments. Denies exposure to sick contacts. Denied any recent travel history.When he presented to the emergency room he was saturating at 88% requiring Ventimask. He was admitted to [facility] in March 2018 for hypoxic respiratory failure, Asthma exacerbation and pneumonia. Since then he has been seen at urgent care clinic 2 -3 times for asthma exacerbation, requiring steroids. Problem list #1 asthma exacerbation #2 opioid dependence #3 constipation #4 nicotine dependence #5 History of anxiety/ADHD/depression Assessment and plan We will transition patient from IV steroids to 60 mg prednisone today with a every 3 day taper. TRC nebs treatment as needed. attempt to continue to taper O2. His leukocytosis is probably due to steroids. We will continue patient on MiraLAX and Colace for constipation. We will continue the rest of his meds including methadone, nicotine patch, Xanax , fluoxetine. Patient required extra dose of xanax yesterday, we attempted hydroxyzine but it did not help the patient's anxiety. Today he notes less anxiety, potentially secondary to his resolving respiratory distress. Refer patient to PCP as well as Dr. Key who is seeing the patient here Follow up sputum and blood cultures DVT prophylaxis alps Patient is full code. Problem List: 1. Asthma exacerbation Pain Ratin Pain Location: na Pain Goal: Remain pain free Pain Plan: na Tomorrow's Labs & Rationales: none
--- NOTE | 2018-06-19 12:27 | PN- Att Addend ---
Attending Addendum Attending Brief Note Patient seen and examined, overall doing better today. Requiring less oxygen. Feeling less anxious today. Vital Signs Date Time Temp Pulse Resp B/P B/P Pulse O2 O2 Flow FiO2 Mean Ox Delivery Rate 06/19 0819 92 Nasal 2.0L Cannula 06/19 0727 97.8 62 20 133/63 97 Nasal 2.0L Cannula 06/19 0000 Nasal 4.0L Cannula 06/18 2243 97.7 93 20 133/71 94 Nasal 2.0L Cannula 06/18 1635 96 Nasal 4.0L Cannula 06/18 1600 96 Nasal 4.0L Cannula 06/18 1400 98.4 91 20 138/62 93 Nasal 5.0L Cannula on exam; aox3, nad. cv; s1,s2, rrr resp; b/l exp wheeze but improved then before. abd; soft, nt, bs+ ext; no edema no labs A/P; 27 y/o M with pmh sig for asthma, anxiety, ADHD, depression, opiate dependence on methadone, current smoker, bicuspid aortic valve admitted with acute respiratory failure (patient tachycardic, hypoxic and was in moderate distress), likely secondary to acute asthma exacerbation. Patient continues to smoke. Appreciate pulmonology input. Will follow up on the sputum culture results available. We will switch steroids to oral prednisone. Continue SMILEY nebs. Patient currently on Xanax for his anxiety. Smoking cessation counseling was given. Continue the rest of the management including methadone. DVT prophylaxis: Lovenox. Possible discharge tomorrow if continues to improve and able to come off of oxygen.
[2018-06-19] MEDS ORDERED: PREDNISONE10 M2 PO (12:42)
[2018-06-19] MEDS ORDERED: NICOTINE PATCH1 EAC3 TOP (12:42)
--- NOTE | 2018-06-19 12:56 | Patient Discharge Instructions ---
Discharge Instructions General Discharge Information You were seen/treated for: asthma Special Instructions: please follow up with pcp in one week please follow up with tire setter in one week Diet Continue normal diet: Yes Activity Full Activity/No Limits: Yes Acute Coronary Syndrome Inclusion Criteria At DC or during hospital stay patient has or had the following: ACS DIAGNOSIS No Discharge Core Measures Meds if any: Prescribed or Continued at Discharge Meds if any: NOT Prescribed or Continued at Discharge Congestive Heart Failure Inclusion Criteria At DC or during hospital stay patient has or had the following: CHF DIAGNOSIS No Discharge Core Measures Meds if any: Prescribed or Continued at Discharge Meds if any: NOT Prescribed or Continued at Discharge Cerebrovascular accident Inclusion Criteria At DC or during hospital stay patient has or had the following: CVA/TIA Diagnosis No Discharge Core Measures Meds if any: Prescribed or Continued at Discharge Meds if any: NOT Prescribed or Continued at Discharge Venous thromboembolism Inclusion Criteria VTE Diagnosis No VTE Type NONE VTE Confirmed by (Test) NONE Discharge Core Measures - Per Current guidelines, there needs to be overlap - treatment for the first 5 days of Warfarin therapy. - If discharged on Warfarin prior to 5 days of - overlap therapy, the patient will need to be - assessed for post discharge needs including - *Post discharge parental anticoagulation - *Warfarin and/or parental anticoagulation education - *Follow up date to check INR post discharge At least 5 days overlap therapy as Inpatient No Meds if any: Prescribed or Continued at Discharge Note: Overlap Therapy is Warfarin and Anticoagulant Meds if any: NOT Prescribed or Continued at Discharge
--- NOTE | 2018-06-19 12:56 | Discharge Summary ---
Hospital Course Allergies: Coded Allergies: No Known Allergies (03/27/18) Discharge Instructions Medications at Discharge Discharge Medications: Continue taking these medications: Albuterol Sulfate (Proair Hfa) 90 MCG HFA.AER.AD 2 Puff Inhale through mouth EVERY 4-6 HOURS NEEDED as needed for Asthma Exacerbation Qty = 1 Methadone Hydrochloride (Methadone HCl) 10 MG TABLET 85 Milligram ORAL DAILY Comments: LAST GIVEN 04/02/18 @ 0930 Alprazolam (Alprazolam) 0.5 MG TABLET 1 Tablet ORAL TWICE DAILY Qty = 60 Dextroamphetamine/Amphetamine (Adderall XR 30 MG Capsule) 30 MG CAP.ER.24H 2 Capsule ORAL DAILY Albuterol Sulfate (Albuterol Sulfate) 2.5 MG/3 ML (0.083 %) VIAL.NEB 1 Vial Inhale Solution As Directed as needed for ASTHMA Qty = 75 Fluoxetine HCl (Fluoxetine HCl) 10 MG CAPSULE 1 Capsule ORAL DAILY Qty = 30 Nicotine (Nicotine Patch) 21 MG/24 HOUR PATCH.TD24 1 Patch On the skin DAILY Qty = 30 Comments: LAST GIVEN 04/01/18 @ 1700 This prescription has been renewed Start taking the following new medications: Prednisone (Prednisone) 10 MG TABLET 1 Tablet ORAL SEE INSTRUCT Qty = 60 No Refills Instructions: take 6/day 06/20- 5/day 06/22-06/24 4/day 06/25- 3/day 06/28- 2/day 07/01-07/03 1/day 07/04- .5/day 07/07-
[2018-06-19 15:06] VITALS: BP 126/90
[2018-06-19 22:41] VITALS: BP 160/65
--- NOTE | 2018-06-20 06:56 | PN- Housestaff ---
Cameron PIERCE,Andry 06/20/18 0656: Subjective Follow-up For: Asthma Exacerbation Subjective: Seen and examined at bedside. He reports feeling beter and denies increased shortness of breath. Denies fever/chill,cp/palpitation. He however does appear to have mild shortness of breath when conversating in full sentences. His oxygen demand is now down to 0.5 L. No acute o/n events reported by nursing staf. Later in the morning he was able to ambulate without any supplemental oxygen and achieved sats above 92%. Review of Systems Constitutional: Reports: see HPI. Objective Last 24 Hrs of Vital Signs/I&O Vital Signs Date Time Temp Pulse Resp B/P B/P Pulse O2 O2 Flow FiO2 Mean Ox Delivery Rate 06/20 0700 97.8 74 20 154/72 96 06/20 0000 93 Nasal 1.5L Cannula 06/19 2241 98.3 100 20 160/65 93 Nasal Cannula 06/19 2057 98 Nasal 1.0L Cannula 06/19 2000 93 Nasal 1.5L Cannula 06/19 1616 92 Nasal 1.0L Cannula 06/19 1506 98.2 75 20 126/90 96 Room Air 06/19 0819 92 Nasal 2.0L Cannula Intake & Output 06/20 1600 06/20 0800 06/20 0000 Intake Total 360 210 Output Total Balance 360 210 Intake, IV 10 Intake, Oral 360 200 Physical Exam General Appearance: Alert, Oriented X3, Cooperative Other Physical Findings: Skin: No Rashes Skin Temp/Moisture Exam: Warm/Dry HEENT: Atraumatic, PERRLA, EOMI, Mucous Membr. moist/pink Cardiovascular: Regular Rate, Normal S1, Normal S2, No Murmurs Lungs: very minor wheezing Abdomen: Normal Bowel Sounds, Soft, No Tenderness Neurological: Normal Speech Current Medications: Current Medications Sig/Shelia Start time Last Medication Dose Route Stop Time Status Admin Acetaminophen 650 MG Q6P PRN 06/160 AC PO Albuterol Sulfate 3 ML EVERY 4 HRS/AWAKE 06/17 1200 AC 06/19 INH 205 Albuterol Sulfate 2 PUF Q4-6 PRN PRN 06/16 220 AC INH Albuterol Sulfate 3 ML Q4H PRN 06/16 1700 AC 06/16 INH 1720 Alprazolam 0.5 MG BID 06/16 2151 AC 06/20 PO 06/23 2150 0812 Enoxaparin Sodium 40 MG DAILY 06/17 0900 AC SC Fluoxetine HCl 10 MG DAILY 06/17 0900 AC 06/20 PO 08 Melatonin 5 MG AT BEDTIME 06/18 2100 AC 06/19 PO 2048 Methadone HCl 80 MG DAILY 06/17 09 AC 06/20 PO 0812 Methadone HCl 5 MG DAILY 06/17 09 AC 06/20 PO 0812 Methylprednisolone 40 MG Q8 06/16 2200 DC 06/19 IV 0513 Nicotine 21 MG DAILY 06/17 09 AC 06/20 TOP 0811 Patient Medication 1 ED ONE ONE 06/19 1915 DC Teaching ED 06/19 191 Polyethylene Glycol 17 GM DAILY 06/17 1201 AC 06/20 PO 0811 Prednisone 60 MG DAILY 06/19 1226 AC 06/20 PO 08 Senna/Docusate Sodium 2 TAB DAILY 06/17 1245 AC 06/20 PO 0811 Assessment/Plan Assessment: 27-year-old male with past medical history significant for asthma, anxiety, ADHD , depression, opiate dependence on methadone, current smoker, bicuspid aortic valve presented to the emergency room for acute on chronic worsening of shortness of breath for 2 days. Patient was admitted to general medicine for acute exacerbation of his asthma. Infectious etiology as a possible precipitant to his asthma exacerbation was ruled out with unremarkable chest x-ray, lack of any fevers. Problem list #1 asthma exacerbation #2 opioid dependence #3 constipation #4 nicotine dependence #5 History of anxiety/ADHD/depression Assessment and plan Patient clinical status improved and today early in the morning his oxygen was tapered off and is no longer on any supplemental oxygen. He was able to ambulate without any supplemental oxygen and was not noted to be in any respiratory distress with O2 sats being above 92% while ambulating. He is medically stable and will be discharged today with a prednisone taper to complete his course for this episode of asthma exacerbation, he was also informed to continue his regular home asthma medications. Extensive time was spent at bedside in counseling the patient regarding the importance of smoking cessation. Patient was somehow reluctant about stopping smoking and actually inquired where his cigarettes were and whether he will get them upon discharge. We were however able to convince the patient about considering using nicotine patch as a way of helping him with tobacco cessation (a prescription was provided). Patient was educated and is aware of the risk associated with smoking in the context of his asthma comorbidity. He was also given a referral to a primary care physician and cloth neutralizer. No change was made to his home medical regimen. Problem List: 1. Asthma exacerbation 2. Tobacco abuse 3. Tobacco abuse counseling Pain Ratin Pain Location: none Pain Goal: Remain pain free Pain Plan: none Tomorrow's Labs & Rationales: none-discharge Elvie Santos MD 06/20/18 1145: Attending MD Review Statement Attending Statement Attending MD Statement: examined this patient, discuss w/resident/PA/TELEVISION CABINET FINISHER, agreed w/resident/PA/TELEVISION CABINET FINISHER, reviewed EMR data (avail), discussed with nursing, discussed with case mgmt, reviewed images, amended to note Attending Assessment/Plan: Patient seen and examined, overall doing better. Ambulated with nursing and oxygen saturations remained 92% on room air. Patient medically stable for discharge home today. Smoking cessation counseling was given but patient was asking about his cigarettes. Explain to the patient that if he is appearing nicotine patch then he cannot smoke. He will be discharged on prednisone taper. Will refer him to a primary care doctor as well as cloth neutralizer as an outpatient. Patient will be continued on his home inhalers and nebulizer treatments.
[2018-06-20 07:00] VITALS: BP 154/72
--- NOTE | 2018-06-20 08:01 | PN- Pulmonary ---
Subjective HPI/Critical Care Issues: Patient feels shortness breath is improved oxygen saturations improved and oxygen requirements have decreased Objective Current Medications: Current Medications Sig/Shelia Start time Last Medication Dose Route Stop Time Status Admin Acetaminophen 650 MG Q6P PRN 06/16 2200 AC PO Albuterol Sulfate 3 ML EVERY 4 HRS/AWAKE 06/17 1200 AC 06/19 INH 2052 Albuterol Sulfate 2 PUF Q4-6 PRN PRN 06/16 2200 AC INH Albuterol Sulfate 3 ML Q4H PRN 06/16 1700 AC 06/16 INH 1720 Alprazolam 0.5 MG BID 06/16 2151 AC 06/19 PO 06/23 2150 2048 Enoxaparin Sodium 40 MG DAILY 06/17 0900 AC SC Fluoxetine HCl 10 MG DAILY 06/17 0900 AC 06/19 PO 0853 Melatonin 5 MG AT BEDTIME 06/18 2100 AC 06/19 PO 2048 Methadone HCl 80 MG DAILY 06/17 0900 AC 06/19 PO 0850 Methadone HCl 5 MG DAILY 06/17 0900 AC 06/19 PO 0851 Methylprednisolone 40 MG Q8 06/16 2200 DC 06/19 IV 0513 Nicotine 21 MG DAILY 06/17 0900 AC 06/19 TOP 0851 Patient Medication 1 ED ONE ONE 06/19 1915 DC Teaching ED 06/19 1916 Polyethylene Glycol 17 GM DAILY 06/17 1201 AC 06/19 PO 0853 Prednisone 60 MG DAILY 06/19 1226 AC 06/19 PO 1404 Senna/Docusate Sodium 2 TAB DAILY 06/17 1245 AC 06/19 PO 0852 Vital Signs & I&O Last 24 Hrs of Vitals and I&O: Vital Signs Date Time Temp Pulse Resp B/P B/P Pulse O2 O2 Flow FiO2 Mean Ox Delivery Rate 06/20 07 97.8 74 20 154/72 96 06/20 0000 93 Nasal 1.5L Cannula 06/19 2241 98.3 100 20 160/65 93 Nasal Cannula 06/19 2057 98 Nasal 1.0L Cannula 06/19 2000 93 Nasal 1.5L Cannula 06/19 161 92 Nasal 1.0L Cannula 06/19 1506 98.2 75 20 126/90 96 Room Air 06/19 0819 92 Nasal 2.0L Cannula 06/19 08 92 Nasal 2.0L Cannula Intake & Output 06/20 0800 06/20 0000 08/28 1600 Intake Total 360 210 Output Total Balance 360 210 Intake, IV 10 Intake, Oral 360 200 Oxygen saturation 1.5 L 96% exam of his chest shows clear lung aviles are no wheezes cardiac exam shows regular S1 and S2 without murmurs Impression/Plan Impression/Plan Impression/Plan: 27-year-old admitted with acute asthma and hypoxic history failure is clinically improved Recommendations: Assess room air oxygen saturation. Begin prednisone taper. Patient continues to well consider discharge later today. Patient was again counseled regarding the need for smoking cessation
== END 2018-06-20 11:27 | DRG 141 ==
LOC: ERH 15:06 → ERHI 20:12 → 2NB 20:12 → ENRESERV 21:08 → ENTRNSPT 21:50 → EDTRNSPT 21:52 → EDTRNSPTSTS 21:52 → 2NB 22:00 → CMPTRNSPT 22:16 → ENPENDDIS 06-20 10:52 → 2NB 06-20 11:27
PROVIDERS: Hospitalist; Physician Assistant
DX: J45.901 Unspecified asthma with (acute) exacerbation (principal); F32.9 Major depressive disorder, single episode, unspecified; F41.9 Anxiety disorder, unspecified; F17.210 Nicotine dependence, cigarettes, uncomplicated; F90.9 Attention-deficit hyperactivity disorder, unspecified type; J96.01 Acute respiratory failure with hypoxia; K59.00 Constipation, unspecified; F11.20 Opioid dependence, uncomplicated; Z79.51 Long term (current) use of inhaled steroids
CPT/HCPCS: 2NBSP; 36592; 71046; 82436; 87040; 87070; 93005; 93010; J1650; J2920; J2930; J3490